=== PATIENT | male | born 1960 | race Caucasian/White ===

== ENCOUNTER 2017-02-17 14:19 | Emergency (ER) | payer BC, OTHER ==
[2017-02-17 15:01] VITALS: BP 138/87
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
== END 2017-02-17 15:43 | disposition home or self-care (01) ==
LOC: UCEAST 14:19
DX: R52 Pain, unspecified (principal); S22.42XA Multiple fractures of ribs, left side, initial encounter for closed fracture; S62.92XA Unspecified fracture of left hand, initial encounter for closed fracture; S42.102A Fracture of unspecified part of scapula, left shoulder, initial encounter for closed fracture; V29.40XA Motorcycle driver injured in collision with unspecified motor vehicles in traffic accident, initial encounter; F12.90 Cannabis use, unspecified, uncomplicated; Z87.891 Personal history of nicotine dependence
CPT/HCPCS: 99211; G0463

== ENCOUNTER 2018-11-13 15:26 | Emergency (ER) | payer BC ==
[2018-11-13 17:01] LABS: ABS Basophils 0.1 10^3/ul (0-0.2); ABS Eosinophils 0.1 10^3/ul (0-0.6); ABS Monocytes 1.1 10^3/ul (0-0.8); ABS Neutrophils 7.9 10^3/ul (1.5-7.7); ABS Nucleated RBC 0 10^3/ul; Eosinophil % 1.4 %; Hematocrit 44 % (42-52); Lymphocyte % 9.6 %; Mean Corpuscular HGB Conc 34 g/dl (31-36); Mean Corpuscular Hemoglobin 31 pg (27-31); Mean Corpuscular Volume 90 fL (80-94); Nucleated Red Blood Cells % 0; Platelet Count 269 10^3/ul (150-450); Red Blood Count 4.88 10^6/ul (4.00-5.40); Red Cell Distribution Width 13 % (10.5-15); White Blood Count 10.2 10^3/ul (3.5-10.8)
[2018-11-13 17:21] LABS: Albumin 4.5 g/dL (3.2-5.2); Albumin/Globulin Ratio 1.4 (1-3); BUN/Creatinine Ratio 17.1 (8-20); C Reactive Protein 95.54 mg/L (<8.01); Calcium 9.4 mg/dL (8.6-10.3); EGFR African American 82.3 (>60); Globulin 3.3 g/dL (2-4); Potassium 4.5 mmol/L (3.5-5.0); Total Bilirubin 0.8 mg/dL (0.2-1.0); Total Protein 7.8 g/dL (6.4-8.9)
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
[2018-11-13] MEDS ORDERED: Iohexol 350* (CONTRAST) 500 ML MDV IV ONE (17:35)
[2018-11-13] MEDS ORDERED: cefTRIAXone(*) 1 GM in NS 0.9% 50 ML* 50 ML IVPB ONE (17:40)
[2018-11-13] MEDS ORDERED: Ketorolac INJ* 30 MG/ML 1 ML VIAL IV PUSH ONE (17:40)
[2018-11-13] MEDS ORDERED: Azithromycin IV(*) 500 MG in NS 0.9% 250 ML* 250 ML IVPB ONE (17:40)
[2018-11-13 17:45] LABS: TSH (Thyroid Stimulating Horm) 3.33 mcIU/mL (0.34-5.60)
[2018-11-13 19:19] VITALS: BP 152/100
== END 2018-11-13 19:18 | disposition home or self-care (01) ==
LOC: ED 15:26
DX: J18.9 Pneumonia, unspecified organism (principal); R07.9 Chest pain, unspecified; R06.02 Shortness of breath; Z87.891 Personal history of nicotine dependence
CPT/HCPCS: 36415; 71046; 71275; 80053; 83605; 83880; 84443; 84484; 85025; 85379; 86140; 93005; 96365; 96375; 99283; J0456; J0696; J1885; Q9967

== ENCOUNTER 2019-06-24 21:00 | Emergency (ER) | payer BC ==
[2019-06-24] MEDS ORDERED: Lidocaine 1% MPF ** 5 ML VIAL INJ ONE (23:15)
[2019-06-24] MEDS ORDERED: ceFAZolin 1 GM ADVAN(*) 1 GM in NS 0.9% 50 ML* 50 ML IVPB ONE (23:19)
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
[2019-06-25 02:14] VITALS: BP 141/69
== END 2019-06-25 01:40 | disposition home or self-care (01) ==
LOC: ED 21:00
DX: S62.634B Displaced fracture of distal phalanx of right ring finger, initial encounter for open fracture (principal); W45.8XXA Other foreign body or object entering through skin, initial encounter; Y92.9 Unspecified place or not applicable; Z87.891 Personal history of nicotine dependence
CPT/HCPCS: 12001; 73140; 96365; 99282; J0690

== ENCOUNTER 2019-12-30 07:29 | Observation (INO) | payer BC ==
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
[2019-12-30] MEDS ORDERED: Diltiazem IV push/loading dose 5 MG/ML 5 ML vial (25 mg) IV SLOW PU ONE (07:50)
[2019-12-30] MEDS ORDERED: NS 0.9% 1000 ML** 1,000 ML IV ONE (07:53)
[2019-12-30 08:04] LABS: ABS Basophils 0.1 10^3/ul (0-0.2); ABS Eosinophils 0.2 10^3/ul (0-0.6); ABS Monocytes 0.5 10^3/ul (0-0.8); ABS Neutrophils 5.5 10^3/ul (1.5-7.7); Eosinophil % 2.2 %; Hematocrit 43 % (42-52); Hemoglobin 14.3 g/dL (14.0-18.0); Lymphocyte % 13.7 %; Mean Corpuscular HGB Conc 34 g/dL (31-36); Mean Corpuscular Hemoglobin 31 pg (27-31); Mean Corpuscular Volume 92 fL (80-94); Mean Platelet Volume 8.4 fL (7.4-10.4); Platelet Count 194 10^3/uL (150-450); Red Blood Count 4.63 10^6 /uL (4.18-5.48); Red Cell Distribution Width 14 % (10-15); White Blood Count 7.2 10^3/uL (3.5-10.8)
[2019-12-30 08:22] LABS: Albumin 4.2 g/dL (3.2-5.2); Albumin/Globulin Ratio 1.6 (1-3); BUN/Creatinine Ratio 16.5 (8-20); Calcium 9.5 mg/dL (8.6-10.3); EGFR African American 78.5 (>60); EGFR Non-African American 64.9 (>60); Globulin 2.7 g/dL (2-4); Magnesium 1.6 mg/dL (1.9-2.7); Potassium 4.7 mmol/L (3.5-5.0); Total Bilirubin 0.8 mg/dL (0.2-1.0); Total Protein 6.9 g/dL (6.4-8.9)
[2019-12-30 08:24] LABS: Troponin I 0.02 ng/mL (<0.03)
[2019-12-30] MEDS ORDERED: Magnesium Sulfate IV* 3 GM in NS 0.9% 100 ML* 100 ML IVPB ONE (08:38)
[2019-12-30] MEDS ORDERED: Diltiazem TAB* 30 MG PO ONE (08:38)
[2019-12-30 10:29] LABS: TSH (Thyroid Stimulating Horm) 6.7 mcIU/mL (0.34-5.60)
[2019-12-30] MEDS ORDERED: Acetaminophen TAB* 325 MG PO PRN (10:42)
[2019-12-30] MEDS ORDERED: Iodixanol* (CONTRAST) 320 MG/ML 100 ML SDV IV ONE ×2 (11:19→14:04)
[2019-12-30] MEDS ORDERED: Dextrose 50% Syringe 50 ML* 25 GM/50 ML SYRINGE IV PUSH PRN (11:19)
[2019-12-30] MEDS: Metoprolol Tartrate TAB* 25 MG PO SCH ×2 (13:19→20:28)
[2019-12-30] MEDS: Insulin LISPRO* 1 UNITS UNIT SUBCUT SCH ×3 (13:20→20:29)
--- NOTE | 2019-12-30 14:10 | ECHO ---
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 History: Palpitations. Atrial fibrillation. Risk factors: Former tobacco use. Conclusions Summary: - Left ventricle: Systolic function is severely reduced. The estimated ejection fraction is 25-30%. Wall motion is normal; there are no regional wall motion abnormalities but severe global hypokinesis - Right ventricle: Systolic function is moderately reduced. Systolic pressure is within the normal range. - Mitral valve: There is mild regurgitation. - Aortic valve: There is no evidence of stenosis. There is trace regurgitation. - Tricuspid valve: There is trace to mild regurgitation. - Pulmonary arteries: Systolic pressure is within the normal range. Pulmonary artery pressure may be underestimated - Study data: No prior study is available for comparison. Study data: Transthoracic echocardiogram. Procedure: Transthoracic echocardiography was performed. Image quality was fair. Complete 2D, spectral Doppler, and color flow Doppler. Location: Bedside. Patient status: Inpatient. Patient room number: 442-01. No prior study is available for comparison. Rhythm: Atrial fibrillation. Findings Left ventricle: The cavity size is mildly dilated. Wall thickness is mildly increased. Systolic function is severely reduced. The estimated ejection fraction is 25-30%. Wall motion is normal; there are no regional wall motion abnormalities but severe global hypokinesis Left ventricular diastolic function parameters are indeterminate. Right ventricle: The cavity size is mildly dilated. Systolic function is moderately reduced. Systolic pressure is within the normal range. Ventricular septum: There is septal flattening of the interventricular septum consistent with RV volume or pressure overload. Left atrium: The atrium is mildly dilated. Right atrium: The atrium is mildly dilated. Mitral valve: The leaflets are mildly thickened. There is no evidence of stenosis. There is mild regurgitation. Aortic valve: The valve is trileaflet. The leaflets are mildly thickened. There is no evidence of stenosis. There is trace regurgitation. Tricuspid valve: The leaflets are normal thickness. There is no evidence of stenosis. There is trace to mild regurgitation. Pulmonic valve: The leaflets are normal thickness. There is no evidence of stenosis. There is trace regurgitation. Aorta: Aortic root: The aortic root is moderately dilated. Ascending aorta: The ascending aorta is mildly dilated. Aortic arch: The aortic arch is appears normal. Pericardium: A prominent pericardial fat pad is present. There is no significant pericardial effusion. Pulmonary arteries: The main pulmonary artery is normal-sized. Systolic pressure is within the normal range. Pulmonary artery pressure may be underestimated Systemic veins: Inferior vena cava: The vessel is mildly dilated. There is (>= 50%) respiratory change in the IVC dimension. Measurements Left ventricle Value Ref Aortic valve Value Ref BEAU, LAX (H) 5.9 cm 4.2 - 5.8 Trey diam, ED 2.8 cm ----- ESD, LAX (H) 5.0 cm 2.5 - 4.0 Peak v, S 1.07 m/sec ----- FS, LAX (L) 15 % 25 - 43 VTI, S 29.7 cm ----- PW, ED, LAX 1.0 cm 0.6 - 1.0 Mean grad, S 6.0 mm Hg ----- FS (L) 15 % 25 - 43 Peak grad, S 5.0 mm Hg ----- Mid-wall FS 9 % PW, ED 1.0 cm 0.6 - 1.0 Mitral valve Value Ref E', lat trey, TDI (L) 5.9 cm/sec >=10.0 Peak E 1.06 m/sec --- -- E/e', lat trey, 18 Decel time 146 ms ----- TDI Peak grad, D 4.5 mm Hg ----- E', med trey, TDI (L) 5.7 cm/sec >=7.0 E/e', med trey, 19 Pulmonic valve Value Ref TDI Peak v, S 0.54 m/sec ----- E', avg, TDI 5.8 cm/sec Peak grad, S 1.0 mm Hg ----- E/e', avg, TDI (H) 18 <=14 Tricuspid valve Value Ref LVOT Value Ref TR peak v 2.04 m/sec <=2.8 Peak gabrielle, S 0.71 m/sec Peak RV-RA grad, S 17 mm Hg ----- Mean grad, S 1 mm Hg Aortic root Value Ref Ventricular septum Value Ref Root diam 4.3 cm <4.5 IVS, ED (H) 1.1 cm 0.6 - 1.0 Ascending aorta Value Ref Right ventricle Value Ref AAo AP diam, S 4.0 cm ----- BEAU, LAX 4.3 cm BEAU minor ax, A4C (H) 3.8 cm 1.9 - 3.5 Aortic arch Value Ref mid Arch diam 2.9 cm ----- Pressure, S 25 mm Hg Decending aorta Value Ref Left atrium Value Ref Tianna peak gabrielle 0.54 m/sec ----- AP dim, ES (H) 5.10 cm 3.00 - 4.00 Pulmonary artery Value Ref ML dim, A4C 4.6 cm Pressure, S 24.0 mm Hg ----- SI dim, A4C 5.9 cm Vol/bsa, ES, 1-p 33 ml/m^2 12 - 37 Inferior vena cava Value Ref A4C Diam 2.3 cm ----- Vol/bsa, ES, A/L (H) 39 ml/m^2 16 - 34 Right atrium Value Ref SI dim, ES (H) 5.4 cm 3.4 - 5.3 ML dim, ES, A4C (H) 4.9 cm 2.6 - 4.4 Estimated RAP 8 mm Hg Legend: (L) and (H) magan values outside specified reference range. Prepared and electronically signed by Eric Leiva MD 12/30/2019 14:09
[2019-12-30] MEDS ORDERED: Digoxin TAB* 0.125 MG PO SCH (17:00)
[2019-12-30] MEDS ORDERED: Furosemide IV* 10 MG/ML VIAL (40 MG) IV SLOW PU ONE (17:37)
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
[2019-12-30] MEDS ORDERED: Senna TAB 8.6 mg* TAB PO SCH (21:00)
[2019-12-30] MEDS ORDERED: Lisinopril TAB* 5 MG PO SCH (21:00)
[2019-12-30] MEDS ORDERED: glipiZIDE TAB* 5 MG PO SCH (21:00)
[2019-12-30] MEDS ORDERED: Apixaban* 5 MG TAB PO SCH (21:00)
[2019-12-31 01:42] VITALS: BP 145/117
[2019-12-31] MEDS ORDERED: Iodixanol* (CONTRAST) 320 MG/ML 100 ML SDV IV ONE (01:55)
[2019-12-31 01:57] LABS: ABS Basophils 0.1 10^3/ul (0-0.2); ABS Eosinophils 0.2 10^3/ul (0-0.6); ABS Lymphocytes 1.9 10^3/ul (1.0-4.8); ABS Monocytes 0.9 10^3/ul (0-0.8); ABS Neutrophils 4.5 10^3/ul (1.5-7.7); Eosinophil % 2.8 %; Hematocrit 45 % (42-52); Hemoglobin 15.2 g/dL (14.0-18.0); Lymphocyte % 25.2 %; Mean Corpuscular HGB Conc 34 g/dL (31-36); Mean Corpuscular Hemoglobin 31 pg (27-31); Mean Corpuscular Volume 92 fL (80-94); Mean Platelet Volume 8.5 fL (7.4-10.4); Nucleated Red Blood Cells % 0.1; Platelet Count 205 10^3/uL (150-450); Red Blood Count 4.94 10^6 /uL (4.18-5.48); Red Cell Distribution Width 14 % (10-15); White Blood Count 7.5 10^3/uL (3.5-10.8)
[2019-12-31 02:15] LABS: BUN/Creatinine Ratio 12.7 (8-20); Calcium 9.9 mg/dL (8.6-10.3); EGFR African American 76.2 (>60); HDL Cholesterol 49.2 mg/dL; Magnesium 1.9 mg/dL (1.9-2.7); Potassium 3.9 mmol/L (3.5-5.0)
--- NOTE | 2019-12-31 20:44 | DS ---
CC: Dr. Pratt * DISCHARGE/TRANSFER SUMMARY: DATE OF ADMISSION: 12/30/19 DATE OF DISCHARGE/TRANSFER: 12/31/19 PRIMARY CARE PROVIDER: Dr. Pratt. ATTENDING PHYSICIAN: Dr. Rodriguez.* (DICTATED BY TREY SIFUENTES NP) DISCHARGE DIAGNOSES: Include: 1. Cerebrovascular accident, large vessel occlusion, right M1 segment cutoff per Hilario Kumar stroke neurologist. 2. Atrial fibrillation with rapid ventricular response. 3. Cardiomyopathy, EF of 25% to 30%. 4. Diabetes. 5. Neuropathy. CURRENT MEDICATIONS: Include: 1. Tylenol 650 mg every 4 hours as needed. 2. Apixaban 5 mg b.i.d., last dose at 2100. 3. Aspirin 300 mg p.r. once. 4. Dextrose D50 12.5 g IV for sugars less than 60. 5. Digoxin 0.125 mg daily. 6. Glipizide 5 mg b.i.d. 7. Insulin sliding scale. 8. Lisinopril 2.5 mg daily. 9. Metoprolol 25 mg b.i.d. 10. Senna 1 tab p.o. b.i.d. HOSPITAL COURSE: I will refer you to the H and P dictated yesterday on for further details. In short, Mr. Ward is a 59-year-old male patient who presented initially to our ER with complaints of shortness of breath that was going on for approximately 2 weeks as well as watery postnasal drip. He tried Gas-X and antacids with no effect. He states that for the last 3 days it did help. The patient reports a history of blood clot through his left lower extremity 20 plus years ago. He was on Coumadin for a few months. Also states that he had a procedure done in a different facility where superficial clots were removed from his left lower extremity. He had been on aspirin 325. He stopped taking Coumadin a couple of decades ago. He states that he does not follow up routinely with a PCP. He takes glipizide and metformin for diabetes. He presented to the ER, was noted to be in AFib with RVR and because of this, he was asked to evaluate for admission. The patient was admitted. He was started on apixaban. His transthoracic echocardiogram showed an ejection fraction of 25% to 30%. There was concern that he was in CHF and it was felt that CHF was related to the AFib. A pulmonary embolism had been ruled out via CTA. There was hilar or mediastinal lymphadenopathy with enlarged paraesophageal lymph nodes as well as small bilateral pleural effusions. CT of the abdomen and pelvis showed no appreciable cause for lymphadenopathy. The patient was admitted for the AFib with RVR. He was started again on diltiazem, anticoagulation was started with Eliquis 5 mg p.o. b.i.d., and he was controlled with metoprolol 25 mg twice a day. It was noted that the patient did have development of a hilar or mediastinal lymphadenopathy with enlarged paraesophageal lymph nodes concerning for metastatic neoplasm. CT of the abdomen and pelvis did not show appreciable cause for lymphadenopathy. He was set up for an IR-guided biopsy. For diabetes, he was started on lispro sliding scale. It was noted that he was on Coumadin for a history of a blood clot in the past. The patient was admitted. He was doing well. He at 11:30 had gotten up to use the bathroom with his aide. He had been talking clearly. At approximately 1:18, I was called by nursing staff as there was concern. I responded by 1:20 upstairs and noted that the patient had dense hemiparesis to the left upper extremity, left lower extremity, and his speech was again dysarthric. It was also noted that he had significant weakness to his upper and lower extremities. In addition to this, it was noted that he had profound neglect to left side and decreased sensation to the left lower and left upper extremity and a significant facial droop. A hannah ibarra was called at 1:25. The patient was brought down to CT. His initial NIH Stroke Scale was 18. The patient was again brought to CT emergently and the [facility] was contacted. A CTA was obtained immediately given the concern that there could be a large vessel occlusion. The images were pushed to [facility]. Telestroke was initiated. They evaluated the patient. He had some improvement on second evaluation. He was able to lift his left upper and left lower extremity off the bed somewhat, but again there was significant drift noted. He had a partial gaze deviation at this point and possibly hemianopsia on the left side as well. Telestroke was performed with Dr. Hahn. He looked at the images personally and felt that there was an M1 segment cutoff to the right MCA, and at that point , the LVO team was activated at [facility] and helicopter services were called to initiate transfer. Recommendations from Dr. Hahn from [place] were to keep the head of bed flat; aspirin 300 mg, I gave it to him rectally. In addition to this, they recommended a liter of bolus, I gave him 500 because of his low ejection fraction. The patient's blood pressure when he initially presented to the ICU was low and the systolic was around 100. He responded to fluids and his symptoms subsequently got better with higher blood pressure. Dr. Hahn accepted the patient for LVO based on his read of the CTA. I do note that our [facility] did not call an LVO; however, Dr. Hahn again noted the LVO and recommended transfer, so I am following his recommendations. The patient had an EKG at that time and he did have some T-wave inversions in V5 along with lead I and lead II. Previously, those T-waves were flat and no other changes were noted. CT of the brain did not show bleed. At this point, again the patient will be transferred to [facility] for possible LVO extraction. I updated our neurology team of the plan of care. We have forwarded all images up there. My attending physician was Dr. Rodriguez. He was in agreement with this. DIAGNOSTIC STUDIES: Again, imaging done in the hospital today includes brain CT , which showed study degraded by motion artifact. No acute intracranial hemorrhage. No intracranial mass. No obstructive hydrocephalus. ASPECT score 10. He had a head CTA, impression: No stenosis of the cervical, carotid, or vertebral arteries. Impression of CTA head: No acute findings. Abdominal/pelvis CT was obtained, which showed again noted is paraesophageal lymphadenopathy, small bilateral effusions. There is inflammatory change along the inferior aspect of the right lateral conal fascia. Etiology is unclear. Differential includes inflammation secondary to upper urinary tract infection, atherosclerosis, fatty infiltration of the liver. Chest/thorax CTA shows no PE. Interval development of hilar and mediastinal lymphadenopathy with enlarged paraesophageal lymph nodes concerning for metastatic neoplasm. Small bilateral pleural effusions. Transthoracic echocardiogram showed EF of 25% to 30%. Right systolic function is moderately reduced. Chest x-ray showed patchy bibasilar consolidation, recommend followup until resolution. Again, EKG showed atrial fibrillation initially with a rate of 142 with T-wave flattening in V4, V5, V6, lead I and II. He did have T-wave inversions on his recent EKG that were subtle at 1:20 in V5, lead I, II, and also aVF. DISPOSITION : Again, the patient will be transferred to [facility] for possible LVO intervention. TREY SIFUENTES, STATEMENT REQUEST CLERK [id number]/CPS #: [id number] [facility]HELLE HOSPITALMelinda
== END 2019-12-31 03:00 | disposition short-term general hospital (02) ==
LOC: ED 07:29 → MEDTELE 10:42 → ICU 12-31 02:08
PROVIDERS: ADMIT Internal Medicine; ATTEND Family Medicine
DX: I63.9 Cerebral infarction, unspecified (principal); I48.20 Chronic atrial fibrillation, unspecified; I42.9 Cardiomyopathy, unspecified; G62.9 Polyneuropathy, unspecified; R06.02 Shortness of breath; I48.91 Unspecified atrial fibrillation; R51 Headache; R00.2 Palpitations; E11.9 Type 2 diabetes mellitus without complications; I10 Essential (primary) hypertension; Z86.718 Personal history of other venous thrombosis and embolism; Z79.899 Other long term (current) drug therapy; Z79.4 Long term (current) use of insulin; Z79.82 Long term (current) use of aspirin; Z79.01 Long term (current) use of anticoagulants; Z87.891 Personal history of nicotine dependence
CPT/HCPCS: 36415; 70450; 70496; 70498; 71046; 71275; 74177; 80048; 80053; 80061; 82803; 83036; 83735; 83880; 84443; 84484; 85025; 85379; 93005; 93306; 96361; 96365; 96375; 99284; A9270-GY; G0378; J1940; J3475; Q9967

== ENCOUNTER 2020-01-14 15:28 | Inpatient (IN) | payer BC ==
[2020-01-14] MEDS ORDERED: NS 0.9% 1000 ML** 1,000 ML IV ONE (15:39)
--- OUTSIDE RECORDS SUMMARY | 2020-01-14 15:48 | XMS REPORT | Continuity of Care Document ---
:1960 External Reference #:[id number] Author Name Eric Leiva M.D. (transmitted by agent of provider Elisa De Santiago) Address [address] [place] [address] Problems Description No Information Available Social History Type Date Description Comments Sex Unknown Allergies, Adverse Reactions, Alerts Description No Information Available Medications Description No Information Available Immunizations Description No Information Available Vital Signs Date Vital Result Comment 08/11/2011 11:38am Height 73.50 inches 6'1.50" Weight 275.00 lb Heart Rate 75 /min BP Systolic 124 mmHg BP Diastolic 87 mmHg BMI (Body Mass Index) 35.8 kg/m2 Results Description No Information Available Procedures Date Code Description Status 12/30/2019 95922 ECHO Transthorasic Realtime 2D W Doppler & Color Flow Hosp Completed Medical Devices Description No Information Available Encounters Type Date Location Provider Dx Diagnosis Office Visit 12/31/2019 [facility] Ricardo I48.91 Unspecified atrial 11:48a Asskamlesh wasserman, N.P. fibrillation Hospitalists I63.9 Cerebral infarction, unspecified R59.0 Localized enlarged lymph nodes [facility] Unspecified atrial 11:47a Asskamlesh wasserman, USABILITY STRATEGIST fibrillation Hospitalists R06.02 Shortness of breath Assessments Date Code Description Provider 12/31/2019 I48.91 Unspecified atrial fibrillation Ricardo Myers, N.P. 12/31/2019 I63.9 Cerebral infarction, unspecified Ricardo Myers, N.P. 12/31/2019 R59.0 Localized enlarged lymph nodes Ricardo Myers, N.P. 12/30/2019 R06.02 Shortness of breath Eric Leiva M.D. 12/30/2019 I48.91 Unspecified atrial fibrillation JOSS Woo 12/30/2019 R06.02 Shortness of breath JOSS Woo Plan of Treatment No Information Available Functional Status Description No Information Available Mental Status Description No Information Available Referrals Description No Information Available
--- OUTSIDE RECORDS SUMMARY | 2020-01-14 15:49 | XMS REPORT | Continuity of Care Document ---
:1960 External Reference #:[id number] Author Name Ricardo Myers N.P. (transmitted by agent of provider Rupa Young) Address [address] [place] [address] Problems Description No Information Available Social History [...] kg/m2 Results Description No Information Available Procedures Description No Information Available Medical Devices Description No Information Available Encounters Type Date Location Provider Dx Diagnosis Office Visit 12/31/2019 [facility] Ricardo I48.91 Unspecified atrial 11:48a kamlesh Shaw N.P. fibrillation Hospitalists I63.9 Cerebral infarction, unspecified R59.0 Localized enlarged lymph nodes [facility] Unspecified atrial 11:47a kamlesh Shaw FNP fibrillation Hospitalists R06.02 Shortness of breath Assessments Date Code Description Provider 12/31/2019 I48.91 Unspecified atrial fibrillation Ricardo Myers N.PGarrett 12/31/2019 I63.9 Cerebral infarction, unspecified Ricardo Myers N.PGarrett 12/31/2019 R59.0 Localized enlarged lymph nodes Ricardo Myers N.P. 12/30/2019 I48.91 Unspecified atrial fibrillation JOSS Woo 12/30/2019 R06.02 Shortness of breath JOSS Woo Plan of Treatment No Information Available Functional Status Description No Information Available Mental Status Description No Information Available Referrals Description No Information Available
--- OUTSIDE RECORDS SUMMARY | 2020-01-14 15:49 | XMS REPORT | Continuity of Care Document ---
:1960 External Reference #:[id number] Author Name JOSS Woo (transmitted by agent of provider Rupa Young) Address [address] [place] [address] Problems Description No Information Available Social History [...] Location Provider Dx Diagnosis Office Visit 12/31/2019 [facility] [place] Ricardo I48.91 Unspecified atrial 11:48a kamlesh Shaw, N.P. fibrillation Hospitalists I63.9 Cerebral infarction, unspecified R59.0 Localized enlarged lymph nodes [facility] atrial 11:47a kamlesh Shaw FNP fibrillation Hospitalists R06.02 Shortness of breath Assessments Date Code Description Provider 12/31/2019 I48.91 Unspecified atrial fibrillation Ricardo Myers, N.P. 12/31/2019 I63.9 Cerebral infarction, unspecified Ricardo Myers N.P. 12/31/2019 R59.0 Localized enlarged lymph nodes Ricardo Myers N.P. 12/30/2019 I48.91 Unspecified atrial fibrillation JOSS Woo 12/30/2019 R06.02 Shortness of breath JOSS Woo Plan of Treatment No Information Available Functional Status Description No Information Available Mental Status Description No Information Available Referrals Description No Information Available
[2020-01-14 15:51] LABS: Hematocrit 51 % (42-52); Hemoglobin 16.5 g/dL (14.0-18.0); Mean Corpuscular HGB Conc 33 g/dL (31-36); Mean Corpuscular Hemoglobin 31 pg (27-31); Mean Corpuscular Volume 94 fL (80-94); Mean Platelet Volume 9.1 fL (7.4-10.4); Platelet Count 139 10^3/uL (150-450); Red Blood Count 5.38 10^6 /uL (4.18-5.48); Red Cell Distribution Width 14 % (10-15)
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
[2020-01-14 16:05] LABS: ALT 52 U/L (7-52); AST 61 U/L (13-39); Albumin 4.1 g/dL (3.2-5.2); Albumin/Globulin Ratio 1.2 (1-3); Alkaline Phosphatase 74 U/L (34-104); Anion Gap 22 mmol/L (2-11); BUN/Creatinine Ratio 13.8 (8-20); Blood Urea Nitrogen 27 mg/dL (6-24); CO2 Carbon Dioxide 17 mmol/L (22-32); Calcium 9.9 mg/dL (8.6-10.3); Chloride 99 mmol/L (101-111); EGFR African American 42.7 (>60); EGFR Non-African American 35.3 (>60); Globulin 3.3 g/dL (2-4); Glucose 361 mg/dL (70-100); Potassium 3.6 mmol/L (3.5-5.0); Sodium 138 mmol/L (135-145); Total Protein 7.4 g/dL (6.4-8.9)
[2020-01-14 16:07] LABS: Troponin I 0.06 ng/mL (<0.03)
[2020-01-14 16:10] LABS: Activated Partial Thrombo Time 60.4 seconds (26.0-38.0); INR 1.21 (0.82-1.09)
[2020-01-14 16:17] LABS: Magnesium 2.3 mg/dL (1.9-2.7)
[2020-01-14 16:27] LABS: ABS Basophils 0.1 10^3/ul (0-0.2); ABS Eosinophils 0.2 10^3/ul (0-0.6); ABS Lymphocytes 3.1 10^3/ul (1.0-4.8); ABS Monocytes 1.1 10^3/ul (0-0.8); ABS Neutrophils 10.5 10^3/ul (1.5-7.7); Eosinophil % 1.6 %; Lymphocyte % 20.5 %
[2020-01-14 16:46] LABS: Fibrinogen 200.3 mg/dL (110.8-404.3)
[2020-01-14] MEDS ORDERED: fentaNYL* 50 MCG/ML 2 ML VIAL (100 MCG VIAL) IV PRN (17:00)
[2020-01-14] MEDS ORDERED: Ondansetron INJ* 2 MG/ML VIAL IV PRN (17:00)
[2020-01-14 17:03] LABS: Urine Appearance Cloudy; Urine Bilirubin Negative (Negative); Urine Blood 2+ (Negative); Urine Color Amber; Urine Glucose 3+(>=500 mg/dL) (Negative); Urine Ketones Negative (Negative); Urine Nitrite Negative (Negative); Urine Protein 2+(100 mg/dL) (Negative); Urine Specific Gravity 1.022 (1.010-1.030); Urine Urobilinogen Negative (Negative)
[2020-01-14 17:10] LABS: Urine Bacteria Absent (Absent); Urine Red Blood Cell 3+(>10/hpf) (Absent); Urine Squamous Epithelial Cell Present (Absent); Urine White Blood Cell Trace(0-5/hpf) (Absent)
[2020-01-14] MEDS ORDERED: Midazolam* 1 MG/ML 5 ML VIAL (5 MG) ONE (17:18)
[2020-01-14] MEDS ORDERED: Midazolam* 1 MG/ML 5 ML VIAL (5 MG) IV SLOW PU ONE (17:19)
[2020-01-14] MEDS ORDERED: Propofol* 100 ML ONE (17:25)
[2020-01-14] MEDS ORDERED: Norepinephrine 16MCG/ML IVPRE* 4,000 MCG/250 ML BAG IV ONE (17:52)
[2020-01-14] MEDS: Propofol* 100 ML IV SCH (17:59)
[2020-01-14] MEDS ORDERED: Amiodarone 150 MG IVPREMIX* 150 MG/100 ML BAG IV ONE (18:00)
[2020-01-14] MEDS ORDERED: Norepinephrine 16MCG/ML IVPRE* 4,000 MCG/250 ML BAG IV SCH (18:00)
[2020-01-14] MEDS ORDERED: Amiodarone 360 MG IVPREMIX* 360 MG/200 ML BAG IV ONE (18:30)
[2020-01-14 18:56] LABS: Troponin I 0.45 ng/mL (<0.03)
[2020-01-14] MEDS ORDERED: Dextrose 50% Syringe 50 ML* 25 GM/50 ML SYRINGE IV PUSH PRN (19:07)
--- NOTE | 2020-01-14 19:12 | HP ---
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 All information is obtained from chart and ED d/t unresponsiveness. He was admitted here at [facility] on 12/29 after 2 weeks of SOB and palpitations. Was found to be in afib with RVR. During his brief stay, he was a code garay, experiencing left sided plegia, right gaze deviation and dysarthria. He was transferred to stroke for a right MCA occlusion. Apparently there was no endovascular intervention d/t stroke already forming. From there, he went to [facility] for rehab presumptively. Just prior to arrival, he was in the bathroom, said he didnt feel well, was incontinent of stool and then went unresponsive. There was no pulse, found to have PEA arrest. Received 1 epi, and 10mins of CPR with ROSC. Of note, his most recent echo showed cardiomyopathy with EF 25-30%. He was intubated in the field. CTH showed significant right MCA subacute infarct. ROS: ROS unable to be obtained secondary to unresponsiveness PMHx: DM, DVT, afib PSHx: unknown Family History: KEYANA Social History: KEYANA Allergies: NKDA Home Medications: glipiZIDE TAB* [Glucotrol TAB*] 5 mg PO BID 11/13/18 [History Confirmed 01/14/20 ] metFORMIN* [Glucophage 1000 MG TAB *] 1,000 mg PO BID 11/13/18 [History Confirmed 01/14/20] Aspirin EC TAB* [Ecotrin EC TAB*] 325 mg PO DAILY 12/30/19 [History Confirmed ] Simethicone [Gas-X Extra Strength] 125 mg PO DAILY PRN 12/30/19 [History Confirmed 01/14/20] Acetaminophen TAB* [Tylenol TAB*] 650 mg PO Q6H PRN 01/14/20 [History Confirmed 01/14/20] Atorvastatin* [Lipitor*] 80 mg PO BEDTIME 01/14/20 [History Confirmed 01/14/20] FLUoxetine CAP* [PROzac CAP*] 20 mg PO QAM 01/14/20 [History Confirmed 01/14/20] Metoprolol Tartrate TAB* [Lopressor TAB*] 25 mg PO BID 01/14/20 [History Confirmed 01/14/20] Metoprolol Tartrate TAB* [Lopressor TAB*] 100 mg PO BID 01/14/20 [History Confirmed 01/14/20] Multivitamins/Minerals TAB* [Theragran/minerals TAB*] 1 tab PO QAM 01/14/20 [ History Confirmed 01/14/20] dilTIAZem HCl [Diltiazem 12Hr ER] 60 mg PO Q12HR 01/14/20 [History Confirmed ] Tele: irregular Vitals: Vital Signs 01/14/20 01/14/20 01/14/20 15:32 15:33 15:38 Temperature Pulse Rate 93 68 107 Respiratory Rate Blood Pressure 123/99 121/82 (mmHg) O2 Sat by Pulse 100 99 100 Oximetry 01/14/20 01/14/20 01/14/20 15:49 15:54 15:57 Temperature Pulse Rate 62 72 66 Respiratory Rate Blood Pressure 108/76 112/81 134/87 (mmHg) O2 Sat by Pulse 99 99 100 Oximetry 01/14/20 01/14/20 01/14/20 16:00 16:08 16:10 Temperature 95.5 F Pulse Rate 52 125 Respiratory 18 Rate Blood Pressure 134/89 127/89 (mmHg) O2 Sat by Pulse 99 99 Oximetry 01/14/20 01/14/20 01/14/20 16:14 16:18 16:22 Temperature Pulse Rate 62 60 64 Respiratory Rate Blood Pressure 129/87 116/86 136/85 (mmHg) O2 Sat by Pulse 99 99 99 Oximetry 01/14/20 01/14/20 01/14/20 16:55 17:00 17:01 Temperature 99.0 F 99.0 F 99.0 F Pulse Rate 70 71 73 Respiratory Rate Blood Pressure 128/93 130/78 (mmHg) O2 Sat by Pulse 98 92 95 Oximetry 01/14/20 01/14/20 01/14/20 17:05 17:11 17:15 Temperature 99.0 F 99.0 F 99.0 F Pulse Rate 120 143 148 Respiratory Rate Blood Pressure 173/129 179/106 151/115 (mmHg) O2 Sat by Pulse 95 96 97 Oximetry 01/14/20 01/14/20 01/14/20 17:20 17:24 17:29 Temperature 99.0 F 99.0 F 99.0 F Pulse Rate 133 115 81 Respiratory Rate Blood Pressure 137/113 129/109 129/98 (mmHg) O2 Sat by Pulse 96 97 98 Oximetry 01/14/20 01/14/20 01/14/20 17:42 17:45 17:55 Temperature 99.1 F 99.1 F 99.1 F Pulse Rate 97 131 151 Respiratory 24 29 Rate Blood Pressure 112/93 112/93 149/99 (mmHg) O2 Sat by Pulse 98 98 96 Oximetry Intake and Output Last 24 Hours 01/12/20 01/13/20 01/14/20 01/15/20 06:59 06:59 06:59 06:59 Intake Total 1000 Balance 1000 Weight 247 lb 3.2 oz Intake: IV Fluids 1000 Vent: vented Infusions: IVF bolus infusing Current Medications: Fentanyl Citrate (Fentanyl*) 25 mcg IV Q1H PRN PRN Reason: PAIN - SEVERE Propofol (Diprivan*) 100 mls @ 16.819 mls/hr IV .PER PROTOCOL CELINA; Protocol Last Admin: 01/14/20 17:59 Dose: 16.819 mls/hr Amiodarone HCl (Nexterone 360 Mg/200 Ml Ivpremix*) 360 mg in 200 mls @ 33.333 mls/hr IV ONCE ONE Stop: 01/15/20 00:29 Last Admin: 01/14/20 18:20 Dose: 33.333 mls/hr Amiodarone HCl (Nexterone 360 Mg/200 Ml Ivpremix*) 360 mg in 200 mls @ 16.667 mls/hr IV .SEE PROTOCOL CELINA Norepinephrine Bitartrate (Levophed 16 Mcg/Ml Premix*) 4,000 mcg in 250 mls @ 18.75 mls/hr IV .PER PROTOCOL CELINA; Protocol Ondansetron HCl (Zofran Inj*) 4 mg IV Q6H PRN PRN Reason: NAUSEA/VOMITING Physical Exam: Constitutional: unrepsonsive, no distress, no diaphoresis Head: normocephalic, atraumatic Eyes: no pallor, no icterus ENT: moist mucous membranes Neck: soft, supple CVS: normal rate, regular, no murmur Chest/Resp: bilateral air entry, no rhales, no wheeze, no rhonchi, no acc muscle use Abdomen/GI: soft, nontender, nondistended, BS+ Ext/Msk: warm, pulses+, no edema. LLE is purple, unknown baseline. Does have history of both superficial and deep venous thromboses in that extremity. Skin: intact, warm Neuro: unresponsive, does not open eyes, does not follow commands, no movement any extremity. PERRL 5mm. GCS 3T. Labs: Laboratory Results - last 24 hr 01/14/20 01/14/20 01/14/20 15:38 15:38 15:38 WBC 15.0 H RBC 5.38 Hgb 16.5 Hct 51 MCV 94 MCH 31 MCHC 33 RDW 14 Plt Count 139 L MPV 9.1 Neut % (Auto) 69.7 Lymph % (Auto) 20.5 Desha % (Auto) 7.6 Eos % (Auto) 1.6 Baso % (Auto) 0.6 Absolute Neuts (auto) 10.5 H Absolute Lymphs (auto) 3.1 Absolute Monos (auto) 1.1 H Absolute Eos (auto) 0.2 Absolute Basos (auto) 0.1 Absolute Nucleated RBC 0.0 Nucleated RBC % 0.0 INR (Anticoag Therapy) APTT Fibrinogen D-Dimer, Quantitative Patient Temperature ABG pH ABG pH (Temp Correct) ABG pCO2 ABG pCO2 (Temp Corrct ABG pO2 ABG pO2 (Temp Correct ABG HCO3 ABG O2 Saturation ABG Base Excess Respiration Rate O2 Delivery Device Ventilator Type Vent Mode FiO2 Inspiratory Time PEEP Pressure Support Pressure Control EPAP IPAP BiPAP Sodium 138 Potassium 3.6 Chloride 99 L Carbon Dioxide 17 L Anion Gap 22 H BUN 27 H Creatinine 1.95 H Est GFR ( Amer) 42.7 Est GFR (Non-Af Amer) 35.3 BUN/Creatinine Ratio 13.8 Glucose 361 H Lactic Acid 9.6 H* Calcium 9.9 Magnesium 2.3 Total Bilirubin 0.90 AST 61 H ALT 52 Alkaline Phosphatase 74 Troponin I 0.06 H* B-Natriuretic Peptide Total Protein 7.4 Albumin 4.1 Globulin 3.3 Albumin/Globulin Ratio 1.2 Urine Color Urine Appearance Urine pH Ur Specific [place] Urine Protein Urine Ketones Urine Blood Urine Nitrate Urine Bilirubin Urine Urobilinogen Ur Leukocyte Esterase Urine WBC (Auto) Urine RBC (Auto) Ur Squamous Epith Cells Urine Bacteria Hyaline Casts Urine Sperm Urine Glucose 01/14/20 01/14/20 01/14/20 15:38 15:38 15:55 WBC RBC Hgb Hct MCV MCH MCHC RDW Plt Count MPV Neut % (Auto) Lymph % (Auto) Desha % (Auto) Eos % (Auto) Baso % (Auto) Absolute Neuts (auto) Absolute Lymphs (auto) Absolute Monos (auto) Absolute Eos (auto) Absolute Basos (auto) Absolute Nucleated RBC Nucleated RBC % INR (Anticoag Therapy) 1.21 H APTT 60.4 H Fibrinogen 200.3 D-Dimer, Quantitative > 1050 H Patient Temperature Cancelled ABG pH Cancelled ABG pH (Temp Correct) Cancelled ABG pCO2 Cancelled ABG pCO2 (Temp Corrct Cancelled ABG pO2 Cancelled ABG pO2 (Temp Correct Cancelled ABG HCO3 Cancelled ABG O2 Saturation Cancelled ABG Base Excess Cancelled Respiration Rate Cancelled O2 Delivery Device Cancelled Ventilator Type Cancelled Vent Mode Cancelled FiO2 Cancelled Inspiratory Time Cancelled PEEP Cancelled Pressure Support Cancelled Pressure Control Cancelled EPAP Cancelled IPAP Cancelled BiPAP Cancelled Sodium Potassium Chloride Carbon Dioxide Anion Gap BUN Creatinine Est GFR ( Amer) Est GFR (Non-Af Amer) BUN/Creatinine Ratio Glucose Lactic Acid Calcium Magnesium Total Bilirubin AST ALT Alkaline Phosphatase Troponin I B-Natriuretic Peptide 720 H Total Protein Albumin Globulin Albumin/Globulin Ratio Urine Color Urine Appearance Urine pH Ur Specific [place] Urine Protein Urine Ketones Urine Blood Urine Nitrate Urine Bilirubin Urine Urobilinogen Ur Leukocyte Esterase Urine WBC (Auto) Urine RBC (Auto) Ur Squamous Epith Cells Urine Bacteria Hyaline Casts Urine Sperm Urine Glucose 01/14/20 01/14/20 01/14/20 15:59 16:00 18:23 WBC RBC Hgb Hct MCV MCH MCHC RDW Plt Count MPV Neut % (Auto) Lymph % (Auto) Desha % (Auto) Eos % (Auto) Baso % (Auto) Absolute Neuts (auto) Absolute Lymphs (auto) Absolute Monos (auto) Absolute Eos (auto) Absolute Basos (auto) Absolute Nucleated RBC Nucleated RBC % INR (Anticoag Therapy) APTT Fibrinogen D-Dimer, Quantitative Patient Temperature ABG pH 7.06 L* ABG pH (Temp Correct) ABG pCO2 63 H ABG pCO2 (Temp Corrct ABG pO2 152 H ABG pO2 (Temp Correct ABG HCO3 14.7 L ABG O2 Saturation TNP ABG Base Excess -13.1 L Respiration Rate O2 Delivery Device Ventilator Type Vent Mode FiO2 Inspiratory Time PEEP Pressure Support Pressure Control EPAP IPAP BiPAP Sodium Potassium Chloride Carbon Dioxide Anion Gap BUN Creatinine Est GFR ( Amer) Est GFR (Non-Af Amer) BUN/Creatinine Ratio Glucose Lactic Acid Calcium Magnesium Total Bilirubin AST ALT Alkaline Phosphatase Troponin I 0.45 H* B-Natriuretic Peptide Total Protein Albumin Globulin Albumin/Globulin Ratio Urine Color Viry Urine Appearance Cloudy Urine pH 5.0 Ur Specific [place] 1.022 Urine Protein 2+(100 mg/dl) A Urine Ketones Negative Urine Blood 2+ A Urine Nitrate Negative Urine Bilirubin Negative Urine Urobilinogen Negative Ur Leukocyte Esterase Negative Urine WBC (Auto) Trace(0-5/hpf) Urine RBC (Auto) 3+(>10/hpf) A Ur Squamous Epith Cells Present A Urine Bacteria Absent Hyaline Casts Present A Urine Sperm Present A Urine Glucose 3+(>=500 mg/dl) A Imaging: CTH 01/13: Subacute right MCA stroke, right extrernal watershed territory infarcts. Mild local mass effect, effacement of right lateral ventricle. 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 All information is obtained from chart and ED d/t unresponsiveness. He was admitted here at [facility] on 12/29 after 2 weeks of SOB and palpitations. Was found to be in afib with RVR. During his brief stay, he was a code garay, experiencing left sided plegia, right gaze deviation and dysarthria. He was transferred to stroke for a right MCA occlusion. Apparently there was no endovascular intervention d/t stroke already forming. From there, he went to [facility] for rehab presumptively. Just prior to arrival, he was in the bathroom, said he didnt feel well, was incontinent of stool and then went unresponsive. There was no pulse, found to have PEA arrest. Received 1 epi, and 10mins of CPR with ROSC. Of note, his most recent echo showed cardiomyopathy with EF 25-30%. He was intubated in the field. CTH showed significant right MCA subacute infarct. - Right MCA stroke - PEA cardiac arrest - DM - Aflutter/afib with RVR Plan: Neuro- - GCS 3T. Will initiate normothermia protocol. Demerol for shivering - CTH showed right MCA subacute infarct from previous hospitalization -Delirium prec; avoid BDZ CVS- -Titrate Pressors to Maintain MAP>65 - Aflutter: bolused and started on amio drip Resp- - Intubated during code in field -Wean Fio2 to keep sat>92% -Bronchodilators PRN, Aspiration prec, Pulmonary Toilet -VAP bundle ID- - Goal temp normothermia, will set for 36celsius. Panculture and Tylenol for fevers GI- -Nutrition: NPO -GI prophylaxis pepcid Renal- -strict I/O, replete to keep K>4, Mg>2 -[place] as indicated Heme- - Contraindicated at this time Endo- Maintain BG<200, insulin protocol as needed Musculsk- pressure ulcer prophylaxis. Bedrest. Wounds- none Nutrition- NPO DVT prophylaxis: contraindicated GI prophylaxis: pepcid [place] Catheter: continue Disposition: Admit to ICU; Expected LOS>2 midnights; Patient requires Critical Care/ICU for PEA arrest, respiratory failure, normothermia, hypotension Patient Clinical Status: critical Code Status: full Total Critical Care time is 60 minutes
[2020-01-14] MEDS: Chlorhexidine MOUTHWASH 0.12%* 15 ML UDC TOPICAL SCH (21:01)
[2020-01-14] MEDS: Famotidine IV* 10 MG/ML 2 ML (20 mg) IV SLOW PU SCH (21:01)
[2020-01-15] MEDS: Amiodarone 360 MG IVPREMIX* 360 MG/200 ML BAG IV SCH ×2 (00:31→12:39)
[2020-01-15] MEDS: Chlorhexidine MOUTHWASH 0.12%* 15 ML UDC TOPICAL SCH ×6 (00:45→20:25)
[2020-01-15 01:29] LABS: Glucose Confirmatory 388 mg/dL (70-100)
[2020-01-15 01:35] LABS: Troponin I 0.87 ng/mL (<0.03)
[2020-01-15] MEDS: Lactated Ringers 1000 ML Bag* 1,000 ML IV SCH ×3 (02:20→18:04)
[2020-01-15] MEDS: Insulin LISPRO* 1 UNITS UNIT SUBCUT SCH ×6 (02:27→20:25)
[2020-01-15] MEDS: Propofol* 100 ML IV SCH ×3 (03:28→18:04)
[2020-01-15 05:28] LABS: ABS Lymphocytes 0.5 10^3/ul (1.0-4.8); ABS Monocytes 1.4 10^3/ul (0-0.8); ABS Neutrophils 14.4 10^3/ul (1.5-7.7); Hematocrit 46 % (42-52); Hemoglobin 15.3 g/dL (14.0-18.0); Lymphocyte % 3.3 %; Mean Corpuscular HGB Conc 34 g/dL (31-36); Mean Corpuscular Hemoglobin 31 pg (27-31); Mean Corpuscular Volume 91 fL (80-94); Mean Platelet Volume 8.7 fL (7.4-10.4); Platelet Count 105 10^3/uL (150-450); Red Blood Count 4.99 10^6 /uL (4.18-5.48); Red Cell Distribution Width 13 % (10-15); White Blood Count 16.4 10^3/uL (3.5-10.8)
[2020-01-15 05:38] LABS: CO2 Carbon Dioxide 17 mmol/L (22-32); Calcium 9.1 mg/dL (8.6-10.3); Chloride 103 mmol/L (101-111); Sodium 135 mmol/L (135-145)
[2020-01-15 05:39] LABS: Anion Gap 15 mmol/L (2-11); Potassium 5.8 mmol/L (3.5-5.0)
[2020-01-15 05:43] LABS: BUN/Creatinine Ratio 20.5 (8-20); Blood Urea Nitrogen 42 mg/dL (6-24); EGFR African American 40.3 (>60); EGFR Non-African American 33.3 (>60); Glucose 383 mg/dL (70-100); Phosphorus 6.5 mg/dL (2.5-5.0)
[2020-01-15] MEDS ORDERED: Insulin LISPRO* 1 UNITS UNIT SUBCUT SCH (07:15)
[2020-01-15 09:16] LABS: Magnesium 1.9 mg/dL (1.9-2.7)
[2020-01-15 09:21] LABS: Cholesterol 116 mg/dL; Creatine Kinase 238 U/L (10-223); HDL Cholesterol 45.1 mg/dL; LDL Cholesterol 43 mg/dL; Triglycerides 142 mg/dL
[2020-01-15] MEDS: Famotidine IV* 10 MG/ML 2 ML (20 mg) IV SLOW PU SCH ×2 (10:18→20:25)
--- NOTE | 2020-01-15 11:39 | PN ---
Progress Note - Progress Note Date of Service: 01/15/20 Note: Progress Note -- Critical Care 24 hour events/significant events: - Reached goal temp last night - remains comfortable on current sedation - According to nursing history, patient may have had an aspiration episode while eating lunch yesterday ROS: ROS unable to be obtained secondary to intubated/sedated Tele: NSR Vitals: Vital Signs 01/14/20 01/14/20 01/14/20 15:32 15:33 15:38 Temperature Pulse Rate 93 68 107 Respiratory Rate Blood Pressure 123/99 121/82 (mmHg) O2 Sat by Pulse 100 99 100 Oximetry 01/14/20 01/14/20 01/14/20 15:49 15:54 15:57 Temperature Pulse Rate 62 72 66 Respiratory Rate Blood Pressure 108/76 112/81 134/87 (mmHg) O2 Sat by Pulse 99 99 100 Oximetry 01/14/20 01/14/20 01/14/20 16:00 16:08 16:10 Temperature 95.5 F Pulse Rate 52 125 Respiratory 18 Rate Blood Pressure 134/89 127/89 (mmHg) O2 Sat by Pulse 99 99 Oximetry 01/14/20 01/14/20 01/14/20 16:14 16:18 16:22 Temperature Pulse Rate 62 60 64 Respiratory Rate Blood Pressure 129/87 116/86 136/85 (mmHg) O2 Sat by Pulse 99 99 99 Oximetry 01/14/20 01/14/20 01/14/20 16:55 17:00 17:01 Temperature 99.0 F 99.0 F 99.0 F Pulse Rate 70 71 73 Respiratory Rate Blood Pressure 128/93 130/78 (mmHg) O2 Sat by Pulse 98 92 95 Oximetry 01/14/20 01/14/20 01/14/20 17:05 17:11 17:15 Temperature 99.0 F 99.0 F 99.0 F Pulse Rate 120 143 148 Respiratory Rate Blood Pressure 173/129 179/106 151/115 (mmHg) O2 Sat by Pulse 95 96 97 Oximetry 01/14/20 01/14/20 01/14/20 17:20 17:24 17:29 Temperature 99.0 F 99.0 F 99.0 F Pulse Rate 133 115 81 Respiratory Rate Blood Pressure 137/113 129/109 129/98 (mmHg) O2 Sat by Pulse 96 97 98 Oximetry 01/14/20 01/14/20 01/14/20 17:42 17:45 17:47 Temperature 99.1 F 99.1 F 99.1 F Pulse Rate 97 131 124 Respiratory 24 Rate Blood Pressure 112/93 112/93 75/57 (mmHg) O2 Sat by Pulse 98 98 98 Oximetry 01/14/20 01/14/20 01/14/20 17:50 17:55 18:00 Temperature 99.1 F 99.1 F Pulse Rate 76 151 97 Respiratory 29 Rate Blood Pressure 149/99 149/99 (mmHg) O2 Sat by Pulse 98 96 97 Oximetry 01/14/20 01/14/20 01/14/20 18:16 18:31 18:47 Temperature 99.0 F 99.0 F 98.8 F Pulse Rate 80 60 63 Respiratory Rate Blood Pressure 131/87 105/82 135/74 (mmHg) O2 Sat by Pulse 97 97 97 Oximetry 01/14/20 01/14/20 01/14/20 19:00 19:01 19:16 Temperature 98.6 F 98.4 F Pulse Rate 54 61 Respiratory 27 Rate Blood Pressure 146/65 151/103 (mmHg) O2 Sat by Pulse 97 97 Oximetry 01/14/20 01/14/20 01/14/20 19:46 20:01 20:16 Temperature 97.9 F 97.5 F 97.7 F Pulse Rate 66 122 93 Respiratory Rate Blood Pressure 143/82 155/91 139/98 (mmHg) O2 Sat by Pulse 100 99 100 Oximetry 01/14/20 01/14/20 01/14/20 20:31 20:46 21:00 Temperature 97.3 F 97.2 F Pulse Rate 67 Respiratory 16 Rate Blood Pressure 111/78 97/85 (mmHg) O2 Sat by Pulse 100 Oximetry 01/14/20 01/14/20 01/14/20 21:02 21:16 21:30 Temperature 97.2 F 97.2 F 97.0 F Pulse Rate 61 90 87 Respiratory Rate Blood Pressure 99/75 113/76 114/84 (mmHg) O2 Sat by Pulse 100 100 100 Oximetry 01/14/20 01/14/20 01/14/20 21:46 22:00 22:15 Temperature 97.0 F 97.0 F 97.2 F Pulse Rate 64 59 84 Respiratory 22 Rate Blood Pressure 98/79 114/63 98/80 (mmHg) O2 Sat by Pulse 100 100 100 Oximetry 01/14/20 01/14/20 01/14/20 22:31 22:46 23:00 Temperature 97.0 F 97.0 F 97.0 F Pulse Rate 66 60 63 Respiratory 22 Rate Blood Pressure 109/69 103/76 97/78 (mmHg) O2 Sat by Pulse 100 100 100 Oximetry 01/14/20 01/14/20 01/14/20 23:05 23:15 23:30 Temperature 97.2 F 97.2 F 97.3 F Pulse Rate 70 56 68 Respiratory Rate Blood Pressure 111/82 106/77 (mmHg) O2 Sat by Pulse 100 100 100 Oximetry 01/14/20 01/15/20 01/15/20 23:45 00:00 00:15 Temperature 97.3 F 97.5 F 97.5 F Pulse Rate 64 69 66 Respiratory 25 Rate Blood Pressure 100/76 115/94 117/86 (mmHg) O2 Sat by Pulse 99 100 100 Oximetry 01/15/20 01/15/20 01/15/20 00:31 01:00 01:15 Temperature 97.5 F 97.3 F 97.0 F Pulse Rate 67 65 66 Respiratory 19 Rate Blood Pressure 103/81 100/76 98/74 (mmHg) O2 Sat by Pulse 100 99 99 Oximetry 01/15/20 01/15/20 01/15/20 01:30 01:45 02:00 Temperature 96.8 F 96.6 F 96.3 F Pulse Rate 64 64 64 Respiratory 18 Rate Blood Pressure 102/77 105/79 103/81 (mmHg) O2 Sat by Pulse 100 100 100 Oximetry 01/15/20 01/15/20 01/15/20 02:15 02:30 02:45 Temperature 96.1 F 95.7 F 95.7 F Pulse Rate 62 58 61 Respiratory Rate Blood Pressure 106/81 122/92 118/87 (mmHg) O2 Sat by Pulse 100 100 100 Oximetry 01/15/20 01/15/20 01/15/20 03:00 03:15 03:30 Temperature 95.7 F 95.7 F 95.7 F Pulse Rate 62 62 61 Respiratory 22 Rate Blood Pressure 127/91 128/98 126/96 (mmHg) O2 Sat by Pulse 100 100 100 Oximetry 01/15/20 01/15/20 01/15/20 03:45 04:00 04:15 Temperature 95.7 F 95.7 F 95.7 F Pulse Rate 53 60 62 Respiratory 17 Rate Blood Pressure 115/86 104/80 109/88 (mmHg) O2 Sat by Pulse 100 100 100 Oximetry 01/15/20 01/15/20 01/15/20 04:30 04:45 05:00 Temperature 95.9 F 95.9 F 96.3 F Pulse Rate 62 62 62 Respiratory 18 Rate Blood Pressure 105/77 101/80 105/84 (mmHg) O2 Sat by Pulse 100 99 100 Oximetry 01/15/20 01/15/20 01/15/20 05:15 05:30 05:45 Temperature 96.4 F 96.6 F 97.0 F Pulse Rate 64 64 67 Respiratory Rate Blood Pressure 100/80 107/81 105/81 (mmHg) O2 Sat by Pulse 100 100 100 Oximetry 01/15/20 01/15/20 01/15/20 06:00 06:15 06:30 Temperature 97.2 F 97.5 F 97.7 F Pulse Rate 65 70 67 Respiratory 19 Rate Blood Pressure 107/82 126/94 123/93 (mmHg) O2 Sat by Pulse 100 100 100 Oximetry 01/15/20 01/15/20 01/15/20 07:00 07:30 08:00 Temperature 98.1 F 98.2 F 97.9 F Pulse Rate 71 73 72 Respiratory 19 Rate Blood Pressure 127/93 125/89 111/86 (mmHg) O2 Sat by Pulse 100 99 99 Oximetry 01/15/20 01/15/20 01/15/20 08:31 09:00 09:30 Temperature 97.3 F 97.3 F 97.2 F Pulse Rate 66 68 69 Respiratory Rate Blood Pressure 101/78 105/82 109/85 (mmHg) O2 Sat by Pulse 99 99 100 Oximetry 01/15/20 10:00 Temperature 97.0 F Pulse Rate 70 Respiratory Rate Blood Pressure 112/84 (mmHg) O2 Sat by Pulse 100 Oximetry Intake and Output Last 24 Hours 01/13/20 01/14/20 01/15/20 01/16/20 06:59 06:59 06:59 06:59 Intake Total 2842.5 Output Total 216 75 Balance 2626.5 -75 Weight 242 lb 8.136 oz Intake: IV Fluids 2459 LR 509 NS 950 Medicated IV 383.5 Amiodarone 268.2 Propofol 115.3 Output: [place] 216 75 Vent: CMV Infusions: propofol, LR, amio drip Medications: Chlorhexidine Gluconate (Peridex Mouth Wash 0.12%*) 15 ml TOPICAL Q4H [facility] Last Admin: 01/15/20 08:35 Dose: 15 ml Dextrose (D50w Syringe 50 Ml*) 12.5 gm IV PUSH .FOR FS < 60 - SS PRN PRN Reason: FS < 60 Famotidine (Pepcid Iv*) 20 mg IV SLOW PU BID [facility] Last Admin: 01/15/20 10:18 Dose: 20 mg Fentanyl Citrate (Fentanyl*) 25 mcg IV Q1H PRN PRN Reason: PAIN - SEVERE Propofol (Diprivan*) 100 mls @ 16.819 mls/hr IV .PER PROTOCOL [facility]; Protocol Last Admin: 01/15/20 10:18 Dose: 13.2 mls/hr Amiodarone HCl (Nexterone 360 Mg/200 Ml Ivpremix*) 360 mg in 200 mls @ 16.667 mls/hr IV .SEE PROTOCOL [facility] Last Admin: 01/15/20 00:31 Dose: 16.667 mls/hr Norepinephrine Bitartrate (Levophed 16 Mcg/Ml Premix*) 4,000 mcg in 250 mls @ 18.75 mls/hr IV .PER PROTOCOL [facility]; Protocol Lactated Ringer's (Lactated Ringers 1000 Ml Bag*) 1,000 mls @ 125 mls/hr IV PER RATE [facility] Last Admin: 01/15/20 10:18 Dose: 125 mls/hr Insulin Human Lispro (Humalog*) 0 units SUBCUT FS Q4 ICU [facility]; Protocol Last Admin: 01/15/20 10:24 Dose: 12 unit Ondansetron HCl (Zofran Inj*) 4 mg IV Q6H PRN PRN Reason: NAUSEA/VOMITING Physical Exam: Constitutional: sedated and intubated, no distress, no diaphoresis Head: normocephalic, atraumatic Eyes: no pallor, no icterus ENT: moist mucous membranes Neck: soft, supple CVS: normal rate, regular, no murmur Chest/Resp: bilateral air entry, no rhales, no wheeze, no rhonchi, no acc muscle use Abdomen/GI: soft, nontender, nondistended, BS+ Ext/Msk: warm, pulses+, no edema. LLE is purple, unknown baseline. Does have history of both superficial and deep venous thromboses in that extremity. Skin: intact, warm Neuro: sedated and intubated, sedation not held, does not open eyes, does not follow commands, no movement any extremity. PERRL 3mm. GCS 3T. Labs: Laboratory Results - last 24 hr 01/14/20 01/14/20 01/14/20 15:38 15:38 15:38 WBC 15.0 H RBC 5.38 Hgb 16.5 Hct 51 MCV 94 MCH 31 MCHC 33 RDW 14 Plt Count 139 L MPV 9.1 Neut % (Auto) 69.7 Lymph % (Auto) 20.5 [place] % (Auto) 7.6 Eos % (Auto) 1.6 Baso % (Auto) 0.6 Absolute Neuts (auto) 10.5 H Absolute Lymphs (auto) 3.1 Absolute Monos (auto) 1.1 H Absolute Eos (auto) 0.2 Absolute Basos (auto) 0.1 Absolute Nucleated RBC 0.0 Nucleated RBC % 0.0 INR (Anticoag Therapy) APTT Fibrinogen D-Dimer, Quantitative Patient Temperature ABG pH ABG pH (Temp Correct) ABG pCO2 ABG pCO2 (Temp Corrct ABG pO2 ABG pO2 (Temp Correct ABG HCO3 ABG O2 Saturation ABG Base Excess Respiration Rate O2 Delivery Device Ventilator Type Vent Mode FiO2 Inspiratory Time PEEP Pressure Support Pressure Control EPAP IPAP BiPAP Sodium 138 Potassium 3.6 Chloride 99 L Carbon Dioxide 17 L Anion Gap 22 H BUN 27 H Creatinine 1.95 H Est GFR ( Amer) 42.7 Est GFR (Non-Af Amer) 35.3 BUN/Creatinine Ratio 13.8 Glucose 361 H POC Glucose (mg/dL) Glucose Meter Confirm Lactic Acid 9.6 H* Calcium 9.9 Phosphorus Magnesium 2.3 Total Bilirubin 0.90 AST 61 H ALT 52 Alkaline Phosphatase 74 Total Creatine Kinase Troponin I 0.06 H* B-Natriuretic Peptide Total Protein 7.4 Albumin 4.1 Globulin 3.3 Albumin/Globulin Ratio 1.2 Triglycerides Cholesterol LDL Cholesterol HDL Cholesterol Urine Color Urine Appearance Urine pH Ur Specific [place]ansom Urine Protein Urine Ketones Urine Blood Urine Nitrate Urine Bilirubin Urine Urobilinogen Ur Leukocyte Esterase Urine WBC (Auto) Urine RBC (Auto) Ur Squamous Epith Cells Urine Bacteria Hyaline Casts Urine Sperm Urine Glucose 01/14/20 01/14/20 01/14/20 15:38 15:38 15:55 WBC RBC Hgb Hct MCV MCH MCHC RDW Plt Count MPV Neut % (Auto) Lymph % (Auto) [place] % (Auto) Eos % (Auto) Baso % (Auto) Absolute Neuts (auto) Absolute Lymphs (auto) Absolute Monos (auto) Absolute Eos (auto) Absolute Basos (auto) Absolute Nucleated RBC Nucleated RBC % INR (Anticoag Therapy) 1.21 H APTT 60.4 H Fibrinogen 200.3 D-Dimer, Quantitative > 1050 H Patient Temperature Cancelled ABG pH Cancelled ABG pH (Temp Correct) Cancelled ABG pCO2 Cancelled ABG pCO2 (Temp Corrct Cancelled ABG pO2 Cancelled ABG pO2 (Temp Correct Cancelled ABG HCO3 Cancelled ABG O2 Saturation Cancelled ABG Base Excess Cancelled Respiration Rate Cancelled O2 Delivery Device Cancelled Ventilator Type Cancelled Vent Mode Cancelled FiO2 Cancelled Inspiratory Time Cancelled PEEP Cancelled Pressure Support Cancelled Pressure Control Cancelled EPAP Cancelled IPAP Cancelled BiPAP Cancelled Sodium Potassium Chloride Carbon Dioxide Anion Gap BUN Creatinine Est GFR ( Amer) Est GFR (Non-Af Amer) BUN/Creatinine Ratio Glucose POC Glucose (mg/dL) Glucose Meter Confirm Lactic Acid Calcium Phosphorus Magnesium Total Bilirubin AST ALT Alkaline Phosphatase Total Creatine Kinase Troponin I B-Natriuretic Peptide 720 H Total Protein Albumin Globulin Albumin/Globulin Ratio Triglycerides Cholesterol LDL Cholesterol HDL Cholesterol Urine Color Urine Appearance Urine pH Ur Specific Ransom Urine Protein Urine Ketones Urine Blood Urine Nitrate Urine Bilirubin Urine Urobilinogen Ur Leukocyte Esterase Urine WBC (Auto) Urine RBC (Auto) Ur Squamous Epith Cells Urine Bacteria Hyaline Casts Urine Sperm Urine Glucose 01/14/20 01/14/20 01/14/20 15:59 16:00 18:23 WBC RBC Hgb Hct MCV MCH MCHC RDW Plt Count MPV Neut % (Auto) Lymph % (Auto) [place] % (Auto) Eos % (Auto) Baso % (Auto) Absolute Neuts (auto) Absolute Lymphs (auto) Absolute Monos (auto) Absolute Eos (auto) Absolute Basos (auto) Absolute Nucleated RBC Nucleated RBC % INR (Anticoag Therapy) APTT Fibrinogen D-Dimer, Quantitative Patient Temperature ABG pH 7.06 L* ABG pH (Temp Correct) ABG pCO2 63 H ABG pCO2 (Temp Corrct ABG pO2 152 H ABG pO2 (Temp Correct ABG HCO3 14.7 L ABG O2 Saturation TNP ABG Base Excess -13.1 L Respiration Rate O2 Delivery Device Ventilator Type Vent Mode FiO2 Inspiratory Time PEEP Pressure Support Pressure Control EPAP IPAP BiPAP Sodium Potassium Chloride Carbon Dioxide Anion Gap BUN Creatinine Est GFR ( Amer) Est GFR (Non-Af Amer) BUN/Creatinine Ratio Glucose POC Glucose (mg/dL) Glucose Meter Confirm Lactic Acid Calcium Phosphorus Magnesium Total Bilirubin AST ALT Alkaline Phosphatase Total Creatine Kinase Troponin I 0.45 H* B-Natriuretic Peptide Total Protein Albumin Globulin Albumin/Globulin Ratio Triglycerides Cholesterol LDL Cholesterol HDL Cholesterol Urine Color Viry Urine Appearance Cloudy Urine pH 5.0 Ur Specific Ransom 1.022 Urine Protein 2+(100 mg/dl) A Urine Ketones Negative Urine Blood 2+ A Urine Nitrate Negative Urine Bilirubin Negative Urine Urobilinogen Negative Ur Leukocyte Esterase Negative Urine WBC (Auto) Trace(0-5/hpf) Urine RBC (Auto) 3+(>10/hpf) A Ur Squamous Epith Cells Present A Urine Bacteria Absent Hyaline Casts Present A Urine Sperm Present A Urine Glucose 3+(>=500 mg/dl) A 01/15/20 01/15/20 01/15/20 00:40 00:40 00:41 WBC RBC Hgb Hct MCV MCH MCHC RDW Plt Count MPV Neut % (Auto) Lymph % (Auto) [place] % (Auto) Eos % (Auto) Baso % (Auto) Absolute Neuts (auto) Absolute Lymphs (auto) Absolute Monos (auto) Absolute Eos (auto) Absolute Basos (auto) Absolute Nucleated RBC Nucleated RBC % INR (Anticoag Therapy) APTT Fibrinogen D-Dimer, Quantitative Patient Temperature ABG pH ABG pH (Temp Correct) ABG pCO2 ABG pCO2 (Temp Corrct ABG pO2 ABG pO2 (Temp Correct ABG HCO3 ABG O2 Saturation ABG Base Excess Respiration Rate O2 Delivery Device Ventilator Type Vent Mode FiO2 Inspiratory Time PEEP Pressure Support Pressure Control EPAP IPAP BiPAP Sodium Potassium Chloride Carbon Dioxide Anion Gap BUN Creatinine Est GFR ( Amer) Est GFR (Non-Af Amer) BUN/Creatinine Ratio Glucose POC Glucose (mg/dL) 402 H* Glucose Meter Confirm Lactic Acid 4.5 H* Calcium Phosphorus Magnesium 2.0 Total Bilirubin AST ALT Alkaline Phosphatase Total Creatine Kinase Troponin I B-Natriuretic Peptide Total Protein Albumin Globulin Albumin/Globulin Ratio Triglycerides Cholesterol LDL Cholesterol HDL Cholesterol Urine Color Urine Appearance Urine pH Ur Specific [place] Urine Protein Urine Ketones Urine Blood Urine Nitrate Urine Bilirubin Urine Urobilinogen Ur Leukocyte Esterase Urine WBC (Auto) Urine RBC (Auto) Ur Squamous Epith Cells Urine Bacteria Hyaline Casts Urine Sperm Urine Glucose 01/15/20 01/15/20 01/15/20 00:45 05:00 05:00 WBC 16.4 H RBC 4.99 Hgb 15.3 Hct 46 MCV 91 MCH 31 MCHC 34 RDW 13 Plt Count 105 L MPV 8.7 Neut % (Auto) 87.7 Lymph % (Auto) 3.3 [place] % (Auto) 8.8 Eos % (Auto) 0.0 Baso % (Auto) 0.2 Absolute Neuts (auto) 14.4 H Absolute Lymphs (auto) 0.5 L Absolute Monos (auto) 1.4 H Absolute Eos (auto) 0.0 Absolute Basos (auto) 0.0 Absolute Nucleated RBC 0.0 Nucleated RBC % 0.0 INR (Anticoag Therapy) APTT Fibrinogen D-Dimer, Quantitative Patient Temperature ABG pH ABG pH (Temp Correct) ABG pCO2 ABG pCO2 (Temp Corrct ABG pO2 ABG pO2 (Temp Correct ABG HCO3 ABG O2 Saturation ABG Base Excess Respiration Rate O2 Delivery Device Ventilator Type Vent Mode FiO2 Inspiratory Time PEEP Pressure Support Pressure Control EPAP IPAP BiPAP Sodium 135 Potassium 5.8 H D Chloride 103 Carbon Dioxide 17 L Anion Gap 15 H BUN 42 H Creatinine 2.05 H Est GFR ( Amer) 40.3 Est GFR (Non-Af Amer) 33.3 BUN/Creatinine Ratio 20.5 H Glucose 383 H POC Glucose (mg/dL) Glucose Meter Confirm 388 H Lactic Acid Calcium 9.1 Phosphorus 6.5 H Magnesium 1.9 Total Bilirubin AST ALT Alkaline Phosphatase Total Creatine Kinase 238 H Troponin I 0.87 H* 0.50 H* B-Natriuretic Peptide Total Protein Albumin Globulin Albumin/Globulin Ratio Triglycerides 142 Cholesterol 116 LDL Cholesterol 43 HDL Cholesterol 45.1 Urine Color Urine Appearance Urine pH Ur Specific Ransom Urine Protein Urine Ketones Urine Blood Urine Nitrate Urine Bilirubin Urine Urobilinogen Ur Leukocyte Esterase Urine WBC (Auto) Urine RBC (Auto) Ur Squamous Epith Cells Urine Bacteria Hyaline Casts Urine Sperm Urine Glucose 01/15/20 01/15/20 06:15 09:40 WBC RBC Hgb Hct MCV MCH MCHC RDW Plt Count MPV Neut % (Auto) Lymph % (Auto) [place] % (Auto) Eos % (Auto) Baso % (Auto) Absolute Neuts (auto) Absolute Lymphs (auto) Absolute Monos (auto) Absolute Eos (auto) Absolute Basos (auto) Absolute Nucleated RBC Nucleated RBC % INR (Anticoag Therapy) APTT Fibrinogen D-Dimer, Quantitative Patient Temperature ABG pH ABG pH (Temp Correct) ABG pCO2 ABG pCO2 (Temp Corrct ABG pO2 ABG pO2 (Temp Correct ABG HCO3 ABG O2 Saturation ABG Base Excess Respiration Rate O2 Delivery Device Ventilator Type Vent Mode FiO2 Inspiratory Time PEEP Pressure Support Pressure Control EPAP IPAP BiPAP Sodium Potassium Chloride Carbon Dioxide Anion Gap BUN Creatinine Est GFR ( Amer) Est GFR (Non-Af Amer) BUN/Creatinine Ratio Glucose POC Glucose (mg/dL) Glucose Meter Confirm 314 H Lactic Acid 3.7 H* Calcium Phosphorus Magnesium Total Bilirubin AST ALT Alkaline Phosphatase Total Creatine Kinase Troponin I B-Natriuretic Peptide Total Protein Albumin Globulin Albumin/Globulin Ratio Triglycerides Cholesterol LDL Cholesterol HDL Cholesterol Urine Color Urine Appearance Urine pH Ur Specific [place] Urine Protein Urine Ketones Urine Blood Urine Nitrate Urine Bilirubin Urine Urobilinogen Ur Leukocyte Esterase Urine WBC (Auto) Urine RBC (Auto) Ur Squamous Epith Cells Urine Bacteria Hyaline Casts Urine Sperm Urine Glucose Imaging: CTH 01/13: Subacute right MCA stroke, right extrernal watershed territory infarcts. Mild local mass effect, effacement of right lateral ventricle. 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 All information is obtained from chart and ED d/t unresponsiveness. He was [place] here [place] [facility] [place] 2 weeks of SOB and palpitations. Was found to be in afib with RVR. During his brief stay, he was a code garay, experiencing left sided plegia, right gaze deviation and dysarthria. He was transferred to stroke for a right MCA occlusion. Apparently there was no endovascular intervention d/t stroke already forming. From there, he went to [facility] for rehab presumptively. Just prior to arrival, he was in the bathroom, said he didnt feel well, was incontinent of stool and then went unresponsive. There was no pulse, found to have PEA arrest. Received 1 epi, and 10mins of CPR with ROSC. Of note, his most recent echo showed cardiomyopathy with EF 25-30%. He was intubated in the field. CTH showed significant right MCA subacute infarct. - Right MCA stroke - PEA cardiac arrest - DM - Aflutter/afib with RVR Plan: Neuro- - GCS 3T. Continue normothermia protocol. Demerol for shivering - CTH showed right MCA subacute infarct from previous hospitalization -Delirium prec; avoid BDZ CVS- -Titrate Pressors to Maintain MAP>65 - Aflutter: Continue amio drip Resp- - Intubated during code in field -Wean Fio2 to keep sat>92% -Bronchodilators PRN, Aspiration prec, Pulmonary Toilet -VAP bundle - Possible aspiration during lunch on 01/14/20 - Plan to wake up tomorrow and attempt to extubate if he does well ID- - Goal temp normothermia, will set for 36celsius. Panculture and Tylenol for fevers GI- -Nutrition: NPO -GI prophylaxis pepcid Renal- -strict I/O, replete to keep K>4, Mg>2 -[place] as indicated Heme- - start heparin drip for stroke prevention Endo- - DM - Maintain BG<200, insulin q4hr - BGs q4hr Musculsk- pressure ulcer prophylaxis. Bedrest. Wounds- none Nutrition- NPO DVT prophylaxis: heparin drip for stroke prevention GI prophylaxis: pepcid [place] Catheter: continue Disposition: Patient requires Critical Care/ICU for PEA arrest, respiratory failure, normothermia, hypotension Patient Clinical Status: critical Code Status: full Total Critical Care time is 30 minutes
[2020-01-15] MEDS ORDERED: Heparin DRIP 25,000 UNITS(*) 25,000 UNITS/500 ML BAG IV SCH ×2 (12:30→16:21)
[2020-01-15] MEDS ORDERED: Heparin VIAL(*) 5000 UNITS/ML VIAL (FIVE THOUSAND) IV SCH (13:00)
[2020-01-15 15:02] LABS: BUN/Creatinine Ratio 21.5 (8-20); Calcium 8.3 mg/dL (8.6-10.3); EGFR African American 46.5 (>60); EGFR Non-African American 38.4 (>60); Potassium 4.8 mmol/L (3.5-5.0)
[2020-01-15] MEDS ORDERED: Heparin VIAL(*) 5000 UNITS/ML VIAL (FIVE THOUSAND) ONE (16:19)
[2020-01-15] MEDS ORDERED: Enoxaparin(*) 30 MG/0.3 ML SYR SUBCUT SCH (18:00)
[2020-01-16] MEDS: Insulin LISPRO* 1 UNITS UNIT SUBCUT SCH ×6 (00:09→20:01)
[2020-01-16] MEDS: Chlorhexidine MOUTHWASH 0.12%* 15 ML UDC TOPICAL SCH ×5 (00:09→19:50)
[2020-01-16] MEDS: Propofol* 100 ML IV SCH ×2 (01:25→10:58)
[2020-01-16] MEDS: Amiodarone 360 MG IVPREMIX* 360 MG/200 ML BAG IV SCH ×2 (01:27→12:19)
[2020-01-16 06:01] LABS: Hematocrit 42 % (42-52); Hemoglobin 14.2 g/dL (14.0-18.0); Mean Corpuscular HGB Conc 33 g/dL (31-36); Mean Corpuscular Hemoglobin 30 pg (27-31); Mean Corpuscular Volume 91 fL (80-94); Red Blood Count 4.68 10^6 /uL (4.18-5.48); Red Cell Distribution Width 14 % (10-15); White Blood Count 13.2 10^3/uL (3.5-10.8)
[2020-01-16 06:15] LABS: BUN/Creatinine Ratio 19.1 (8-20); Calcium 8.9 mg/dL (8.6-10.3); EGFR African American 45.9 (>60); EGFR Non-African American 37.9 (>60); Phosphorus 4.6 mg/dL (2.5-5.0); Potassium 4.1 mmol/L (3.5-5.0)
[2020-01-16 06:18] LABS: ABS Lymphocytes 1.1 10^3/ul (1.0-4.8); ABS Neutrophils 11.1 10^3/ul (1.5-7.7); Eosinophil % 0.1 %; Large Platelets Present; Lymphocyte % 8.1 %; Mean Platelet Volume 8.9 fL (7.4-10.4); Platelet Count 82 10^3/uL (150-450)
[2020-01-16] MEDS: Famotidine IV* 10 MG/ML 2 ML (20 mg) IV SLOW PU SCH ×2 (10:10→20:01)
[2020-01-16] MEDS: Lactated Ringers 1000 ML Bag* 1,000 ML IV SCH (10:19)
--- NOTE | 2020-01-16 11:59 | PN ---
Date of Service: 01/16/20 Critical Care Services: Mr. Ward remains sedated and intubated. He awakens to voice briefly. Nursing staff report that he had increased O2 requirements overnight to 100% but is now down to 80%. He is tolerating the ventilator while on propofol. His heart rate remains elevated with afib on amiodarone. Vital Signs: Temp Pulse Resp BP SpO2 FiO2 98.4 F 110 23 108/80 100 80 01/16/20 10:30 01/16/20 10:30 01/16/20 10:00 01/16/20 10:30 01/16/20 10:30 01/15 09:38 Physical Exam: General: Sedated HEENT: Normocephalic, atraumatic, non-icteric sclera, moist oral mucosa Neck: soft, supple, no JVD CV: Regular rate and rhythm, no murmurs or rubs Pulm/Chest: Good bilateral air entry, no rhonchi or rales, no wheeze Abdomen/GI: soft, nontender, nondistended, +BS noted MSK/Skin: warm, dry, intact, +2 pulses+, no edema or cyanosis Neuro: A&Ox3, no gross focal deficits Psych: Appropriate affect Fluid Balance (Past 24 Hours): I= 6373 O= 2821 Net= 3552 Intake & Output 01/14/20 01/15/20 01/16/20 01/17/20 06:59 06:59 06:59 06:59 Intake Total 2842.5 3531 Output Total 216 2605 500 Balance 2626.5 926 -500 Weight 242 lb 8.136 oz 243 lb 9.773 oz Intake: IV Fluids 2459 2886 LR 509 2886 NS 950 Medicated IV 383.5 645 Amiodarone 268.2 371 Propofol 115.3 274 Oral 0 Output: [place] 216 2605 500 Labs: Laboratory Results - last 24 hr 01/15/20 01/15/20 01/15/20 12:30 14:36 14:36 WBC RBC Hgb Hct MCV MCH MCHC RDW Plt Count MPV Neut % (Auto) Lymph % (Auto) Boyd % (Auto) Eos % (Auto) Baso % (Auto) Absolute Neuts (auto) Absolute Lymphs (auto) Absolute Monos (auto) Absolute Eos (auto) Absolute Basos (auto) Absolute Nucleated RBC Nucleated RBC % Large Platelets APTT Sodium 136 Potassium 4.8 Chloride 103 Carbon Dioxide 20 L Anion Gap 13 H BUN 39 H Creatinine 1.81 H Est GFR ( Amer) 46.5 Est GFR (Non-Af Amer) 38.4 BUN/Creatinine Ratio 21.5 H Glucose 225 H POC Glucose (mg/dL) 278 H Lactic Acid 6.5 H* Calcium 8.3 L Phosphorus Magnesium 01/15/20 01/15/20 01/15/20 14:56 14:56 17:02 WBC RBC Hgb Hct MCV MCH MCHC RDW Plt Count MPV Neut % (Auto) Lymph % (Auto) [place] % (Auto) Eos % (Auto) Baso % (Auto) Absolute Neuts (auto) Absolute Lymphs (auto) Absolute Monos (auto) Absolute Eos (auto) Absolute Basos (auto) Absolute Nucleated RBC Nucleated RBC % Large Platelets APTT 42.2 H Sodium Potassium Chloride Carbon Dioxide Anion Gap BUN Creatinine Est GFR ( Amer) Est GFR (Non-Af Amer) BUN/Creatinine Ratio Glucose POC Glucose (mg/dL) 203 H Lactic Acid 4.5 H* Calcium Phosphorus Magnesium 01/15/20 01/16/20 01/16/20 20:05 05:40 05:40 WBC 13.2 H RBC 4.68 Hgb 14.2 Hct 42 MCV 91 MCH 30 MCHC 33 RDW 14 Plt Count 82 L MPV 8.9 Neut % (Auto) 84.2 Lymph % (Auto) 8.1 [place] % (Auto) 7.4 Eos % (Auto) 0.1 Baso % (Auto) 0.2 Absolute Neuts (auto) 11.1 H Absolute Lymphs (auto) 1.1 Absolute Monos (auto) 1.0 H Absolute Eos (auto) 0.0 Absolute Basos (auto) 0.0 Absolute Nucleated RBC 0.0 Nucleated RBC % 0.0 Large Platelets Present APTT Sodium 142 Potassium 4.1 Chloride 105 Carbon Dioxide 29 Anion Gap 8 BUN 35 H Creatinine 1.83 H Est GFR ( Amer) 45.9 Est GFR (Non-Af Amer) 37.9 BUN/Creatinine Ratio 19.1 Glucose 131 H POC Glucose (mg/dL) Lactic Acid Calcium 8.9 Phosphorus 4.6 Magnesium 1.9 01/16/20 06:25 WBC RBC Hgb Hct MCV MCH MCHC RDW Plt Count MPV Neut % (Auto) Lymph % (Auto) Boyd % (Auto) Eos % (Auto) Baso % (Auto) Absolute Neuts (auto) Absolute Lymphs (auto) Absolute Monos (auto) Absolute Eos (auto) Absolute Basos (auto) Absolute Nucleated RBC Nucleated RBC % Large Platelets APTT Sodium Potassium Chloride Carbon Dioxide Anion Gap BUN Creatinine Est GFR ( Amer) Est GFR (Non-Af Amer) BUN/Creatinine Ratio Glucose POC Glucose (mg/dL) Lactic Acid 2.0 Calcium Phosphorus Magnesium Plan: Critical Care Time:
--- NOTE | 2020-01-16 13:01 | PN ---
Date of Service: 01/16/20 Critical Care Services: Mr. Ward was extubated this afternoon. He states that his chest hurts hurts slightly and that he feels a bit short of breath. He denies other complaint. He knows the month and year. He states that his mother recently, about a month ago and becomes teary eyed. He asks that his father be updated about his condition. Vital Signs: Temp Pulse Resp BP SpO2 FiO2 99.0 F 85 23 115/71 97 80 01/16/20 12:01/16/20 12:01/16/20 10:00 01/16/20 12:01/16/20 12:01/15 09:38 Physical Exam: General: Alert, NAD HEENT: Normocephalic, atraumatic, non-icteric sclera, moist oral mucosa Neck: soft, supple, no JVD CV: Regular rate and rhythm, no murmurs or rubs Pulm/Chest: Good bilateral air entry,few rhonchi bilateral bases Abdomen/GI: soft, nontender, nondistended, +BS noted MSK/Skin: warm, dry, intact, +2 pulses+, no edema or cyanosis Neuro: A&Ox3, no gross focal deficits Psych: Appropriate affect Fluid Balance (Past 24 Hours): I= 6373 O= 2821 Net = + 3552 Intake & Output 01/14/20 01/15/20 01/16/20 01/17/20 06:59 06:59 06:59 06:59 Intake Total 2842.5 3531 Output Total 216 2605 500 Balance 2626.5 926 -500 Weight 242 lb 8.136 oz 243 lb 9.773 oz Intake: IV Fluids 2459 2886 LR 509 2886 NS 950 Medicated IV 383.5 645 Amiodarone 268.2 371 Propofol 115.3 274 Oral 0 Output: [place] 216 2605 500 Labs: Laboratory Results - last 24 hr 01/15/20 01/15/20 01/15/20 14:36 14:36 14:56 WBC RBC Hgb Hct MCV MCH MCHC RDW Plt Count MPV Neut % (Auto) Lymph % (Auto) [place] % (Auto) Eos % (Auto) Baso % (Auto) Absolute Neuts (auto) Absolute Lymphs (auto) Absolute Monos (auto) Absolute Eos (auto) Absolute Basos (auto) Absolute Nucleated RBC Nucleated RBC % Large Platelets APTT 42.2 H Sodium 136 Potassium 4.8 Chloride 103 Carbon Dioxide 20 L Anion Gap 13 H BUN 39 H Creatinine 1.81 H Est GFR ( Amer) 46.5 Est GFR (Non-Af Amer) 38.4 BUN/Creatinine Ratio 21.5 H Glucose 225 H POC Glucose (mg/dL) Lactic Acid 6.5 H* Calcium 8.3 L Phosphorus Magnesium 01/15/20 01/15/20 01/15/20 14:56 17:02 20:05 WBC RBC Hgb Hct MCV MCH MCHC RDW Plt Count MPV Neut % (Auto) Lymph % (Auto) [place] % (Auto) Eos % (Auto) Baso % (Auto) Absolute Neuts (auto) Absolute Lymphs (auto) Absolute Monos (auto) Absolute Eos (auto) Absolute Basos (auto) Absolute Nucleated RBC Nucleated RBC % Large Platelets APTT Sodium Potassium Chloride Carbon Dioxide Anion Gap BUN Creatinine Est GFR ( Amer) Est GFR (Non-Af Amer) BUN/Creatinine Ratio Glucose POC Glucose (mg/dL) 203 H Lactic Acid 4.5 H* Calcium Phosphorus Magnesium 1.9 01/16/20 01/16/20 01/16/20 05:40 05:40 06:25 WBC 13.2 H RBC 4.68 Hgb 14.2 Hct 42 MCV 91 MCH 30 MCHC 33 RDW 14 Plt Count 82 L MPV 8.9 Neut % (Auto) 84.2 Lymph % (Auto) 8.1 [place] % (Auto) 7.4 Eos % (Auto) 0.1 Baso % (Auto) 0.2 Absolute Neuts (auto) 11.1 H Absolute Lymphs (auto) 1.1 Absolute Monos (auto) 1.0 H Absolute Eos (auto) 0.0 Absolute Basos (auto) 0.0 Absolute Nucleated RBC 0.0 Nucleated RBC % 0.0 Large Platelets Present APTT Sodium 142 Potassium 4.1 Chloride 105 Carbon Dioxide 29 Anion Gap 8 BUN 35 H Creatinine 1.83 H Est GFR ( Amer) 45.9 Est GFR (Non-Af Amer) 37.9 BUN/Creatinine Ratio 19.1 Glucose 131 H POC Glucose (mg/dL) Lactic Acid 2.0 Calcium 8.9 Phosphorus 4.6 Magnesium Studies: Chest xray 01/14/20: IMPRESSION:1. Left retrocardiac airspace opacification ( infiltrate versus atelectasis). 2. Similar cardiomegaly. 3. The tip of the enteric tube is not clearly visualized. The endotracheal tube is as expected. CT Brain 01/14/20: IMPRESSION: There are motion degraded. 1. Probably early subacute right MCA and right external watershed territory infarct as above. There is no hemorrhagic focus. Mild local mass effect is characterized by effacement of the right lateral ventricle. Case discussed with Dr. Salguero at 5: 04 PM on January 14, 2020 Abd xray 01/14/20: IMPRESSION: LIMITED STUDY. LINES AND TUBES ABOVE. Chest xray 01/15/20: IMPRESSION: LIMITED STUDY. LINES AND TUBES ABOVE. Chest xray 01/16/20: IMPRESSION: LINES AND TUBES ABOVE. CARDIOMEGALY WITH PULMONARY INTERSTITIAL EDEMA. Impression: Mr. Ward is a 59 yo M with PMH of recent finding of afib with ischemic CVA, DM , distant hx of DVT who was admitted on 01/14/20 after suffering a PEA arrest with quick ROSC, now extubated and alerted/oriented x 3. Diagnoses: * PEA arrest * DM * R MCA CVA * Afib Plan: Neuro: - A/O x 3, NAD - S/p normothermia protocol for cardiac arrest - Recent R MCA ischemic stroke, PT and OT to resume tomorrow CVS: - Hemodynamically stable - Afib with RVR during the day today - Continue amiodarone - Most recent echo shows cardiomyopathy with EF 25-30% Resp: - Extubated ID: - No evidence of infection GI: -Nutrition: -GI prophylaxis Renal: -strict I/O, replete to keep K>4, Mg>2 -[place] as indicated Heme: Endo: - Hold home diabetes meds, continue lispro SSI coverage - Maintain BG<200, insulin protocol as needed Musculsk- pressure ulcer prophylaxis. Bedrest. Wounds- none Nutrition- DVT prophylaxis: GI prophylaxis: [place] Catheter: Anticipate Disposition: Patient requires Critical Care/ICU for continued monitoring s/p PEA cardiac arrest Patient clinical status: Critical but improving Code Status:Full code Total Critical Care time is 45 minutes, excluding procedures/teaching
[2020-01-16] MEDS ORDERED: Metoprolol Tartrate IV* 1 MG/ML 5 ML VIAL ONE ×2 (13:20→13:30)
[2020-01-16] MEDS ORDERED: Digoxin IV* 0.5 MG/2 ML AMP (0.25 MG/ML) ONE (14:23)
[2020-01-16] MEDS ORDERED: Digoxin IV* 0.5 MG/2 ML AMP (0.25 MG/ML) IV ONE (15:00)
[2020-01-16] MEDS ORDERED: Metoprolol Tartrate IV* 1 MG/ML 5 ML VIAL IV ONE (15:00)
[2020-01-16] MEDS ORDERED: Lactated Ringers 1000 ML Bag* 1,000 ML IV SCH (16:45)
[2020-01-16] MEDS ORDERED: Acetaminophen TAB* 325 MG PO PRN (17:49)
[2020-01-16] MEDS: Atorvastatin* 80 MG TAB PO SCH (19:50)
[2020-01-16] MEDS ORDERED: Insulin LISPRO* 1 UNITS UNIT SUBCUT ONE (19:55)
[2020-01-16] MEDS ORDERED: Norepinephrine 16MCG/ML IVPRE* (4 MG/250 ML) in NS 0.9% IV ONE (20:54)
[2020-01-16] MEDS ORDERED: Metoprolol Tartrate TAB* 100 MG TAB PO SCH (21:00)
[2020-01-16] MEDS ORDERED: Metoprolol Tartrate TAB* 25 MG PO SCH (21:00)
[2020-01-16] MEDS ORDERED: DILTIAZEM HCL 60 MG PO SCH (21:00)
[2020-01-16] MEDS ORDERED: Amiodarone 360 MG IVPREMIX* 360 MG/200 ML BAG IV SCH (21:30)
[2020-01-16] MEDS ORDERED: Magnesium Sulfate 1 GM IV* 1 GM/100 ML BAG IV ONE (22:30)
[2020-01-16 22:55] LABS: HIV 4th Generation Nonreactive (Nonreactive)
[2020-01-16 23:05] LABS: Hepatitis C Antibody Negative (Negative)
[2020-01-17] MEDS: Insulin LISPRO* 1 UNITS UNIT SUBCUT SCH ×5 (00:16→17:20)
[2020-01-17 04:16] LABS: ABS Lymphocytes 0.9 10^3/ul (1.0-4.8); ABS Monocytes 0.8 10^3/ul (0-0.8); ABS Neutrophils 7.4 10^3/ul (1.5-7.7); Eosinophil % 0.4 %; Hematocrit 40 % (42-52); Hemoglobin 13.6 g/dL (14.0-18.0); Lymphocyte % 10.1 %; Mean Corpuscular HGB Conc 34 g/dL (31-36); Mean Corpuscular Hemoglobin 31 pg (27-31); Mean Corpuscular Volume 90 fL (80-94); Mean Platelet Volume 9.5 fL (7.4-10.4); Platelet Count 84 10^3/uL (150-450); Red Blood Count 4.42 10^6 /uL (4.18-5.48); Red Cell Distribution Width 13 % (10-15); White Blood Count 9.1 10^3/uL (3.5-10.8)
[2020-01-17 04:38] LABS: BUN/Creatinine Ratio 17.5 (8-20); Calcium 8.8 mg/dL (8.6-10.3); EGFR African American 53.6 (>60); EGFR Non-African American 44.3 (>60); Phosphorus 3.2 mg/dL (2.5-5.0); Potassium 3.8 mmol/L (3.5-5.0)
[2020-01-17] MEDS ORDERED: Aspirin EC TAB* 325 MG PO SCH (09:00)
[2020-01-17] MEDS ORDERED: FLUoxetine CAP* 20 MG PO SCH (09:00)
[2020-01-17] MEDS: Famotidine IV* 10 MG/ML 2 ML (20 mg) IV SLOW PU SCH (09:21)
--- NOTE | 2020-01-17 09:37 | PN ---
Date of Service: 01/17/20 Critical Care Services: Mr. Ward reports that he is feeling well today. He denies chest pain or SOB. He does remain on 4L NC. He denies nausea or abdominal pain. He is hungry and eager to have his diet resumed. He continues to have left sided weakness unchanged since his stroke prior to this admission. Vital Signs: Temp Pulse Resp BP SpO2 FiO2 98.0 F 84 16 126/86 95 50 01/17/20 07:21 01/17/20 06:00 01/17/20 06:00 01/17/20 06:00 01/17/20 06:00 01/15 12:00 Physical Exam: General: Alert, NAD HEENT: Normocephalic, atraumatic, non-icteric sclera, moist oral mucosa Neck: soft, supple, no JVD CV: Regular rate and rhythm, no murmurs or rubs Pulm/Chest: Good bilateral air entry, crackles in bases Abdomen/GI: soft, nontender, nondistended, +BS noted MSK/Skin: warm, dry, intact, +2 pulses+, no edema or cyanosis Neuro: A&Ox3, no movement left UE, minimal movement (unable to lift from bed), left sided facial droop Psych: Appropriate affect Fluid Balance (Past 24 Hours): I= 9267 O= 5031 Net = 4236 Intake & Output 01/15/20 01/16/20 01/17/20 01/18/20 06:59 06:59 06:59 06:59 Intake Total 2842.5 3531 2894 Output Total 216 2605 2210 Balance 2626.5 926 684 Weight 242 lb 8.136 oz 243 lb 9.773 oz 248 lb 0.807 oz Intake: IV Fluids 2459 2886 879 LR 509 2886 879 NS 950 IVPB 1606 LR 1496 Magnesium 110 Medicated IV 383.5 645 409 Amiodarone 268.2 371 409 Propofol 115.3 274 Oral 0 Output: [place] 216 2605 2210 Labs: Laboratory Results - last 24 hr 01/15/20 01/16/20 01/16/20 20:07 00:04 04:25 WBC RBC Hgb Hct MCV MCH MCHC RDW Plt Count MPV Neut % (Auto) Lymph % (Auto) [place] % (Auto) Eos % (Auto) Baso % (Auto) Absolute Neuts (auto) Absolute Lymphs (auto) Absolute Monos (auto) Absolute Eos (auto) Absolute Basos (auto) Absolute Nucleated RBC Nucleated RBC % Hem Pathologist Commnt Sodium Potassium Chloride Carbon Dioxide Anion Gap BUN Creatinine Est GFR ( Amer) Est GFR (Non-Af Amer) BUN/Creatinine Ratio Glucose POC Glucose (mg/dL) 186 H 169 H 114 H Calcium Phosphorus Magnesium Hepatitis C Antibody Hepatitis C Ab Index HIV 1&2 Ab/P24 Ag 4thGn 01/16/20 01/16/20 01/16/20 05:40 09:53 12:22 WBC RBC Hgb Hct MCV MCH MCHC RDW Plt Count MPV Neut % (Auto) Lymph % (Auto) [place] % (Auto) Eos % (Auto) Baso % (Auto) Absolute Neuts (auto) Absolute Lymphs (auto) Absolute Monos (auto) Absolute Eos (auto) Absolute Basos (auto) Absolute Nucleated RBC Nucleated RBC % Hem Pathologist Commnt Sodium Potassium Chloride Carbon Dioxide Anion Gap BUN Creatinine Est GFR ( Amer) Est GFR (Non-Af Amer) BUN/Creatinine Ratio Glucose POC Glucose (mg/dL) 124 H 151 H Calcium Phosphorus Magnesium Hepatitis C Antibody Hepatitis C Ab Index HIV 1&2 Ab/P24 Ag 4thGn 01/16/20 01/16/20 01/16/20 18:07 19:47 19:49 WBC RBC Hgb Hct MCV MCH MCHC RDW Plt Count MPV Neut % (Auto) Lymph % (Auto) [place] % (Auto) Eos % (Auto) Baso % (Auto) Absolute Neuts (auto) Absolute Lymphs (auto) Absolute Monos (auto) Absolute Eos (auto) Absolute Basos (auto) Absolute Nucleated RBC Nucleated RBC % Hem Pathologist Commnt Sodium Potassium Chloride Carbon Dioxide Anion Gap BUN Creatinine Est GFR ( Amer) Est GFR (Non-Af Amer) BUN/Creatinine Ratio Glucose POC Glucose (mg/dL) 188 H 184 H Calcium Phosphorus Magnesium 1.8 L Hepatitis C Antibody Hepatitis C Ab Index HIV 1&2 Ab/P24 Ag 4thGn 01/16/20 01/17/20 01/17/20 21:46 00:11 04:05 WBC RBC Hgb Hct MCV MCH MCHC RDW Plt Count MPV Neut % (Auto) Lymph % (Auto) [place] % (Auto) Eos % (Auto) Baso % (Auto) Absolute Neuts (auto) Absolute Lymphs (auto) Absolute Monos (auto) Absolute Eos (auto) Absolute Basos (auto) Absolute Nucleated RBC Nucleated RBC % Hem Pathologist Commnt Sodium Potassium Chloride Carbon Dioxide Anion Gap BUN Creatinine Est GFR ( Amer) Est GFR (Non-Af Amer) BUN/Creatinine Ratio Glucose POC Glucose (mg/dL) 154 H 176 H Calcium Phosphorus Magnesium Hepatitis C Antibody Negative Hepatitis C Ab Index 0.00 HIV 1&2 Ab/P24 Ag 4thGn Nonreactive 01/17/20 01/17/20 01/17/20 04:06 04:06 09:05 WBC 9.1 RBC 4.42 Hgb 13.6 L Hct 40 L MCV 90 MCH 31 MCHC 34 RDW 13 Plt Count 84 L MPV 9.5 Neut % (Auto) 81.0 Lymph % (Auto) 10.1 [place] % (Auto) 8.3 Eos % (Auto) 0.4 Baso % (Auto) 0.2 Absolute Neuts (auto) 7.4 Absolute Lymphs (auto) 0.9 L Absolute Monos (auto) 0.8 Absolute Eos (auto) 0.0 Absolute Basos (auto) 0.0 Absolute Nucleated RBC 0.0 Nucleated RBC % 0.0 Hem Pathologist Commnt Sodium 142 Potassium 3.8 Chloride 106 Carbon Dioxide 27 Anion Gap 9 BUN 28 H Creatinine 1.60 H Est GFR ( Amer) 53.6 Est GFR (Non-Af Amer) 44.3 BUN/Creatinine Ratio 17.5 Glucose 175 H POC Glucose (mg/dL) 152 H Calcium 8.8 Phosphorus 3.2 Magnesium Hepatitis C Antibody Hepatitis C Ab Index HIV 1&2 Ab/P24 Ag 4thGn Impression: Mr. Ward is a 59 yo M with PMH of recent finding of afib with ischemic CVA, DM , distant hx of DVT who was admitted on 01/14/20 after suffering a PEA arrest with quick ROSC, now extubated and alerted/oriented x 3. Diagnoses: * PEA arrest, ? choking or aspiration * DM * Hx of recent R MCA CVA * Afib Plan: Neuro: - A/O x 3, NAD - Recent R MCA ischemic stroke with persistent left sided weakness, PT and OT ordered - Afib noted, patient only on aspirin per records from [email or web address], requesting records from [facility] [facility]: - Hemodynamically stable - Afib controlled - Stopped amiodarone and resumed diltiazem/cardizem - Most recent echo shows cardiomyopathy with EF 25-30% Resp: - Extubated - Requiring 4L NC, due to pulmonary edema - Plan for lasix x 1 now ID: - Haemophilus Influenza per sputum, but likely contaminant based on presence of epithelial cells and polymicrobial growth GI: - Nutrition: Heart healthy Renal: - strict I/O, replete to keep K>4, Mg>2 - Diuresis as per above Heme: - no acute issues Endo: - Hold home diabetes meds, continue lispro SSI coverage - Maintain BG<200, insulin protocol as needed Musculsk: - No active issues Wounds: - none DVT prophylaxis: - SCDs Disposition: Patient stabilized, extubated, plan for transfer to telemetry unit Patient clinical status: Stable Code Status:Full code Total Critical Care time is 45 minutes, excluding procedures/teaching
[2020-01-17] MEDS ORDERED: Furosemide IV* 10 MG/ML 2 ML VIAL (20 MG) IV ONE (14:00)
[2020-01-17] MEDS ORDERED: Aspirin TAB* 325 MG PO SCH (15:00)
[2020-01-17] MEDS ORDERED: Digoxin IV* 0.5 MG/2 ML AMP (0.25 MG/ML) IV SLOW PU ONE (15:37)
[2020-01-17] MEDS: Diltiazem TAB* 30 MG PO SCH (17:21)
[2020-01-17] MEDS ORDERED: Diltiazem TAB* 60 MG PO SCH (18:00)
[2020-01-17] MEDS: Acetaminophen TAB* 325 MG PO PRN (20:38)
[2020-01-17] MEDS: Metoprolol Tartrate TAB* 50 mg PO SCH (20:39)
[2020-01-17] MEDS: Atorvastatin* 80 MG TAB PO SCH (20:39)
[2020-01-18] MEDS: Diltiazem TAB* 30 MG PO SCH ×2 (00:51→05:55)
[2020-01-18] MEDS: Acetaminophen TAB* 325 MG PO PRN ×2 (05:55→16:15)
[2020-01-18 06:04] LABS: ABS Eosinophils 0.1 10^3/ul (0-0.6); ABS Lymphocytes 0.8 10^3/ul (1.0-4.8); ABS Monocytes 0.8 10^3/ul (0-0.8); ABS Neutrophils 8.3 10^3/ul (1.5-7.7); Eosinophil % 1.1 %; Hematocrit 42 % (42-52); Lymphocyte % 7.6 %; Mean Corpuscular HGB Conc 34 g/dL (31-36); Mean Corpuscular Hemoglobin 30 pg (27-31); Mean Corpuscular Volume 90 fL (80-94); Mean Platelet Volume 9.8 fL (7.4-10.4); Nucleated Red Blood Cells % 0.1; Platelet Count 81 10^3/uL (150-450); Red Blood Count 4.62 10^6 /uL (4.18-5.48); Red Cell Distribution Width 13 % (10-15); White Blood Count 10.1 10^3/uL (3.5-10.8)
[2020-01-18 06:42] LABS: Calcium 8.8 mg/dL (8.6-10.3); Potassium 4.2 mmol/L (3.5-5.0)
[2020-01-18 06:48] LABS: BUN/Creatinine Ratio 18.4 (8-20); EGFR African American 64.7 (>60); EGFR Non-African American 53.5 (>60)
[2020-01-18] MEDS: Metoprolol Tartrate TAB* 50 mg PO SCH ×2 (08:59→22:05)
[2020-01-18] MEDS: Insulin LISPRO* 1 UNITS UNIT SUBCUT SCH ×3 (08:59→17:00)
[2020-01-18] MEDS ORDERED: Potassium Chloride* LIQUID 20 MEQ/15 ML UDC PO ONE (11:31)
[2020-01-18] MEDS ORDERED: Magnesium Sulfate 1 GM IV* 1 GM/100 ML BAG IV ONE (11:32)
[2020-01-18] MEDS ORDERED: Lisinopril TAB* 5 MG PO SCH (12:00)
--- NOTE | 2020-01-18 14:08 | PN ---
Subjective Date of Service: 01/18/20 Interval History: pt c/o pleuritic CP whenever he coughs due to post CPR status. Has condom cath on due to incontinence that developed after his CVA. Remembers that he was being helped to the bathroom at [facility] when he collapsed and needed CPR Objective Active Medications: Acetaminophen (Tylenol Tab*) 650 mg PO Q6H PRN PRN Reason: PAIN - MILD Last Admin: 01/18/20 05:55 Dose: 650 mg Atorvastatin Calcium (Lipitor*) 80 mg PO BEDTIME [facility] Last Admin: 01/17/20 20:39 Dose: 80 mg Dextrose (D50w Syringe 50 Ml*) 12.5 gm IV PUSH .FOR FS < 60 - SS PRN PRN Reason: FS < 60 Insulin Human Lispro (Humalog*) 0 units SUBCUT AC [facility]; Protocol Last Admin: 01/18/20 12:37 Dose: 6 units Metoprolol Tartrate (Lopressor Tab*) 125 mg PO BID [facility] Last Admin: 01/18/20 08:59 Dose: 125 mg Ondansetron HCl (Zofran Inj*) 4 mg IV Q6H PRN PRN Reason: NAUSEA/VOMITING Sacubitril/Valsartan (Entresto (Nf)) 1 tab PO BID [facility] Vital Signs - 8 hr 01/18/20 01/18/20 07:39 09:19 Temperature 97.9 F Pulse Rate 78 Respiratory 78 18 Rate Blood Pressure 135/71 (mmHg) O2 Sat by Pulse 96 Oximetry Oxygen Devices in Use Now: Nasal Cannula Appearance: 59 yo M in nAD, aAOx3 Eyes: No Scleral Icterus, PERRLA Ears/Nose/Mouth/Throat: NL Teeth, Lips, Gums, Mucous Membranes Moist Neck: NL Appearance and Movements; NL JVP, Trachea Midline Respiratory: Symmetrical Chest Expansion and Respiratory Effort, - - rhonchi RML -clear with cough Cardiovascular: - - irregular Abdominal: NL Sounds; No Tenderness; No Distention, No Hepatosplenomegaly Lymphatic: No Cervical Adenopathy Extremities: No Edema Skin: No Rash or Ulcers, No Nodules or Sclerosis Neurological: Alert and Oriented x 3, - - left facial drop, tongue midline, EOMI , left arm at 3+/5, left leg stronger proximally at 4/5, R extremities 5/5 Result Diagrams: 01/18/20 05:26 03/29/20 05:26 Microbiology and Other Data: Microbiology 01/15/20 10:50 Blood Culture - Preliminary Blood Venous No Growth Day 3 01/15/20 10:40 Blood Culture - Preliminary Blood Venous No Growth Day 3 01/15/20 09:40 Aerobic Blood Culture - Preliminary Blood Venous No Growth Day 3 Anaerobic Blood Culture - Preliminary No Growth Day 3 01/15/20 09:40 Aerobic Blood Culture - Preliminary Blood Venous No Growth Day 3 Anaerobic Blood Culture - Preliminary No Growth Day 3 01/15/20 21:45 Gram Stain - Final Sputum Sputum Culture - Final Haemophilus Influenzae Normal [place] 01/14/20 15:59 Urine Culture - Final Urine No Growth (<1,000 CFU/mL) Assess/Plan/Problems-Billing Assessment: Mr. Ward is a 59 yo M with PMH of DM, HTN, L LE DVT 20 yrs ago, recent finding of afib with ischemic CVA(admitted to [facility] for A. fib with RVR 12/30/19, on 12/30 developed left sided weakness-dx of R MCA thrombosis- transferred to [facility] on 12/30, 12/31 had hemorrhagic conversion of CVA, anticoagulation was stopped, d/c to [facility] 01/06/20) On 01/14/20 when walking to bathroom at [facility] had a PEA arrest, intubated, then extubated and transferred out of ICU 01/17/20. At [facility] EF was noted to be 18%- pt was recommended outpatient cardiology f/u and f/u head CT 01/21/20 before restarting ASA or anticoagulation - Patient Problems (1) PEA (Pulseless electrical activity) Comment: ? due to arrythmia? If Pt's EF is still low, he will require either lifeVest or cardiac cath and ICD Cardiology following (2) Pulmonary edema Comment: still hypoxemic and requiring O2 , but improving will tx with a dose of Lasix PO Dr. Luna started Entresto, d/c Cardizem, cont Toprol XL (3) Atrial fibrillation Comment: chronic, rate controlled on BB no anticoagulation due to hemorrhagic converstion of ischemic CVA 01/10/20 (4) CVA, old, hemiparesis Comment: ischemic CVA 12/31/19, R MCA thrombosis with residual left hemiparesis due to hemorrhagic conversion , no ASA, cont statin, repeat CT to be scheduled on 01/21/20 (5) Acute renal failure Comment: due to arrest, resolving (6) DM2 (diabetes mellitus, type 2) Comment: cont ISS holding metformin, glipizide (7) DVT prophylaxis Comment: SCD's, no anticoagulation due to due to hemorrhagic conversion of CVA Status and Disposition: inpatient
[2020-01-18] MEDS ORDERED: Furosemide TAB* 40 MG PO ONE (14:17)
--- NOTE | 2020-01-18 14:18 | CONS ---
CARDIOLOGY CONSULTATION: DATE OF CONSULT: 01/18/20 REASON FOR EVALUATION: Cardiomyopathy. HISTORY OF PRESENT ILLNESS: This is a very complicated 59-year-old gentleman with a history of AFib, diabetes, hypertension, remote tobacco use, who presented on 12/30/19 with 1 week of irregular heartbeat, shortness of breath. He was found to be in AFib with a rapid ventricular response and was started on apixaban. Later that night, he developed dense left-sided hemiparesis with a right MCA occlusion. He was transferred for embolectomy to [facility]. Up there, he was found to have hemorrhagic transformation and was not deemed a candidate for intervention. He also was found to have a low ejection fraction with an EF of 18% up at [facility] based on a note from 01/01/20. It was recommended that he be started on heart failure regimen including PETER inhibitor, carvedilol, diuretics, and aspirin, and restart anticoagulation when safe to do so from neurologic standpoint. He subsequently was transferred to rehab. Echo on 12/31/19 revealed a dilated LV with severely reduced EF 18%, mildly dilated RV with moderately reduced RV function. Negative saline study for right to left shunting. Nonvalvular AFib with rapid ventricular response. It was considered that this could be ischemic or tachycardia induced or nonischemic cardiomyopathy. Given the LV dilatation, it was felt to be longstanding. Atrial fibrillation is difficult to control and required metoprolol 125 b.i.d. and diltiazem 60 mg b.i.d. His aspirin was stopped due the hemorrhagic transformation. He was planned to have a repeat CT in 3 weeks after the stroke on 01/21/20 to see if he could start anticoagulation. He was transferred to rehab, and on 01/14/20 was noted to have responsive episode. He apparently got up to use the bathroom. He was incontinent of stool and went unresponsive. He was found to have a PEA arrest. He received 1 epi and 10 minutes of CPR with return of spontaneous circulation. He was intubated, and in the ICU, he had problems with rapid AFib and was treated with digoxin, amiodarone, and diltiazem. He was intubated and subsequently extubated and transferred to the floor. We are now consulted for further evaluation for medical management. Currently, he is awake and alert. He continues to have a dense left hemiparesis with paralysis of his left upper extremity, weakness of his left lower extremity. He denies chest pain except for tenderness where he had CPR. He has a nonproductive cough. No shortness of breath and no orthopnea. PAST MEDICAL HISTORY: Includes DVT of the left lower extremity in 1991, status post vein surgery and residual edema. AFib with rapid ventricular response was diagnosed on 12/30/19. CVA presumably embolic on 12/30/19. Hemorrhagic transformation precluding embolectomy. Hypertension, hyperlipidemia. Tobacco use, discontinued 20 years ago. He denies asthma or emphysema. He was recently told of sleep apnea apparently up at [place] but has not been treated. He has renal insufficiency. He has cardiomyopathy of unclear etiology. 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 He had umbilical hernia repair. MEDICATIONS: His medications include: 1. Atorvastatin 80 mg a day. 2. Acetaminophen. 3. Diltiazem 30 mg q.6h. 4. Metoprolol 125mg b.i.d. 5. Zofran 4 mg q.6. 6. He had been on amiodarone on 01/16/20. 7. Aspirin on 01/17/20 which was discontinued. ALLERGIES: He has no known drug allergies. FAMILY HISTORY: He has 2 sisters and a brother, no premature coronary disease. Mother of pulmonary fibrosis about a month ago. His father is 81, alive and well. SOCIAL HISTORY: He reports he rarely has alcohol, perhaps 12-pack a year. 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 He denies that he is . REVIEW OF SYSTEMS: Review of systems x10 was negative except as above. PHYSICAL EXAM: He is a well-developed, obese gentleman, 248 pounds, in no apparent distress. No significant JVD. Carotids 2+ with bruits. Extraocular muscles intact. Sclerae anicteric. Cardiac exam: S1, S2 with no clear murmurs , gallops, or rubs. Irregular. Chest: Soft rales at the bases. Abdomen: Obese. Bowel sounds present, nontender. No hepatosplenomegaly. Femoral pulses intact without bruits. Distal pulses intact, 1+ edema left lower extremity, none on the right. Motor strength 5/5 in the right upper extremity and right lower extremity, 2/5 in the left lower extremity, 0/5 in the left upper extremity. Deep tendon reflexes 2/4 in the right upper extremity, 1/4 in the right lower extremity, 0/4 in the left extremities. Blood pressure 135/71, heart rate 78. DIAGNOSTIC STUDIES/LAB DATA: White count of 10.1, hemoglobin of 14, hematocrit of 42, platelet count low at 81. D-dimer from 01/14/20 was greater than 1050. Sodium 137, potassium of 4.2, BUN of 25. Creatinine of 1.36, down from 2.05 on 01/15/20. Glucose is elevated. Magnesium on 01/16/20 was 1.8. Echocardiogram from 12/30/19 revealed EF of 25% to 30%, severely reduced LV function, mild MR, moderately reduced RV function, [id number] TR, PA pressure within normal range. EKG from 01/15/20 revealed sinus rhythm, poor R- wave progression, nonspecific ST-T changes. His EKG from 01/18/20 revealed AFib with elevated ventricular response at 104. Anterior ST-T changes, consider ischemia, poor R-wave progression, possible anterior [place]. He also had an EKG on 01/14/20, which revealed AFib with a rapid ventricular response to 130s with a right bundle-branch block which has since resolved. IMPRESSION AND PLAN: My impression is that Mr. Ward has a cardiomyopathy of unclear etiology, possibilities include ischemic cardiomyopathy as well as tachycardia-induced cardiomyopathy or nonischemic cardiomyopathy. Interventional and therapeutic options are limited by his recent central nervous system bleed, which precludes the use of anticoagulation aspirin at this point in time. I did explain the situation to the patient including the fact that his collapse was unexplained and it could have been related to ventricular arrhythmia given his low ejection fraction. For the time being, I recommend the followin. Would follow neuro recommendations concerning anticoagulation. The suggested plan from [place] was to repeat CT of his head on 01/21/20 and reconsideration of anticoagulation at that point. 2. Would continue with rate control with beta-nora and digoxin. Would try to minimize the use of diltiazem given it is contraindicated given his heart failure. 3. Would try adding a low-dose PETER inhibitor to treat his left ventricular dysfunction. 4. Would consider adding Entresto to his regimen to treat his heart failure ( should be available midday 01.19.20). 5. He may require diuresis depending on his volume state, which appears to be euvolemic at this point. 6. If he converts to sinus rhythm, would consider adding amiodarone to try to maintain sinus rhythm and simplify his management. 7. Would consider a cardiac catheterization to evaluate for coronary disease. This may have to be deferred until after he could be anticoagulated given the potential need for dual antiplatelet therapy and anticoagulation. 8. Would also consider evaluation for an ICD given his low ejection fraction and risk for recurrent life threatening ventricular arrhythmias. I will consult Dr. Leiva for this indication. His prognosis remains guarded. Further recommendation will depend on his clinical course. [id number]/[facility] #: [id number] [place]
--- NOTE | 2020-01-18 14:24 | ECHO ---
*[facility]* [place] [address] Fax #: [phone] Transthoracic Echocardiogram Patient: Lyle Ward : 1960 Study Date: 01/18/2020 Age: 59 Gender: M HR: 69 bpm Height: 73 in /185.4 cm BSA: 2.36 m^2 Weight: 247.5 lb /112.5 kg BMI: 32.7 kg/m^2 *Cafeteria Aide: Tiarra Donahue *Referring Physician: * Alice HernandezReading Physician: * Alexis Luna MD Indications: Congestive Heart Failure. History: Syncope. Atrial fibrillation. Cerebrovascular accident. Risk factors: Diabetes mellitus. Conclusions Summary: - Impressions: The study is unchanged since the study of 12/30/2019 except for minimal improvement in ejection fraction from 15-20% then to 20-25% now.. - Left ventricle: The cavity size is mildly dilated. Wall thickness is moderately increased. Systolic function is severely reduced. The estimated ejection fraction is 20-25%. Severe diffuse hypokinesis with regional variations. Left ventricular diastolic function parameters are indeterminate. Study data: Transthoracic echocardiogram. Procedure: Transthoracic echocardiography was performed. Image quality was good. Complete 2D, spectral Doppler, and color flow Doppler. Location: Bedside. Patient status: Inpatient. Patient room number: 446-2. Comparison is made to the study of 12/30/2019. Rhythm: Normal sinus rhythm with PAC's. Findings Left ventricle: The cavity size is mildly dilated. Wall thickness is moderately increased. Systolic function is severely reduced. The estimated ejection fraction is 20-25%. Severe diffuse hypokinesis with regional variations. Left ventricular diastolic function parameters are indeterminate. Right ventricle: The cavity size is dilated. Wall thickness is normal. Systolic function is normal. Ventricular septum: The ventricular septum is normal. Left atrium: The atrium is normal in size. Right atrium: The atrium is normal in size. Atrial septum: No defect or patent foramen ovale is identified. Mitral valve: The valve is structurally normal. There is no evidence of stenosis. There is trace regurgitation. Aortic valve: The valve is structurally normal. The valve is trileaflet. Cusp separation is normal. Transvalvular velocity is within the normal range. There is no evidence of stenosis. There is trace regurgitation. Tricuspid valve: The valve is structurally normal. There is no evidence of stenosis. There is trace regurgitation. Pulmonic valve: The valve is structurally normal. There is no evidence of stenosis. There is trace regurgitation. Aorta: The aortic root appears normal. Pericardium: There is no significant pericardial effusion. Pulmonary arteries: Systolic pressure can not be accurately estimated. Systemic veins: Inferior vena cava: The vessel is normal in size. There is (>= 50%) respiratory change in the IVC dimension. Pulmonary veins: The Pulmonary veins appear normal. Measurements Left ventricle Value Ref Aortic valve Value Ref BEAU, LAX (H) 6.0 cm 4.2 - 5.8 Peak v, S 1.16 m/sec ---- ESD, LAX (H) 4.9 cm 2.5 - 4.0 VTI, S 19.6 cm ---- FS, LAX (L) 19 % 25 - 43 Mean grad, S 3.0 mm Hg ---- PW, ED, LAX (H) 1.5 cm 0.6 - 1.0 Peak grad, S 5.0 mm Hg ---- Qs 6.2 L/min EDWIGE, VTI 1.95 cm^2 ---- E', lat trey, TDI (L) 9.8 cm/sec >=10.0 EDWIGE, Vmax 1.94 cm^2 ---- E/e', lat trey, 9 TDI Mitral valve Value Ref Peak E 0.84 m/sec ---- LVOT Value Ref Peak A 0 m/sec ---- Diam, S 2.00 cm Decel time 111 ms ---- Area 3.1 cm^2 Peak grad, D 2.8 mm Hg ---- Peak gabrielle, S 0.72 m/sec Peak E/A ratio 278.3 ---- Mean grad, S 1 mm Hg SV 38 ml Pulmonic valve Value Ref Peak v, S 0.6 m/sec ---- Ventricular septum Value Ref Peak grad, S 1.0 mm Hg ---- IVS, ED (H) 1.6 cm 0.6 - 1.0 Aortic root Value Ref Right ventricle Value Ref Root diam 3.9 cm <4.4 BEAU, LAX 3.6 cm BEAU minor ax, (H) 5.2 cm 1.9 - 3.5 Ascending aorta Value Ref A4C mid AAo AP diam, S 4.2 cm ---- Left atrium Value Ref Aortic arch Value Ref AP dim, ES (H) 4.10 cm 3.00 - Arch diam 2.5 cm ---- 4.00 ML dim, A4C 4.1 cm Inferior vena cava Value Ref SI dim, A4C 6.2 cm Diam 2.5 cm ---- Vol/bsa, ES, 1-p 20 ml/m^2 12 - 37 A4C Right atrium Value Ref SI dim, ES 5.2 cm 3.4 - 5.3 ML dim, ES, A4C 4.2 cm 2.6 - 4.4 SI dim, ES, A4C 5.2 cm 3.4 - 5.3 Legend: (L) and (H) magan values outside specified reference range. Prepared and electronically signed by Alexis Luna MD 01/18/2020 14:22
[2020-01-18] MEDS: FLUoxetine CAP* 20 MG PO SCH (16:13)
[2020-01-18] MEDS: Digoxin IV* 0.5 MG/2 ML AMP (0.25 MG/ML) IV SLOW PU SCH (17:25)
[2020-01-18] MEDS ORDERED: Digoxin IV* 0.5 MG/2 ML AMP (0.25 MG/ML) IV SLOW PU SCH (18:00)
[2020-01-18] MEDS: Atorvastatin* 80 MG TAB PO SCH (22:05)
[2020-01-18] MEDS: traMADol TAB* 50 MG PO PRN (22:59)
[2020-01-19 06:44] LABS: BUN/Creatinine Ratio 17.3 (8-20); Calcium 8.8 mg/dL (8.6-10.3); EGFR African American 66.4 (>60); EGFR Non-African American 54.8 (>60); Magnesium 1.5 mg/dL (1.9-2.7); Potassium 3.8 mmol/L (3.5-5.0)
[2020-01-19 07:28] LABS: Troponin I 0.06 ng/mL (<0.03)
[2020-01-19] MEDS: Insulin LISPRO* 1 UNITS UNIT SUBCUT SCH ×3 (09:25→17:41)
[2020-01-19] MEDS: FLUoxetine CAP* 20 MG PO SCH (09:25)
[2020-01-19] MEDS: Metoprolol Tartrate TAB* 50 mg PO SCH ×2 (09:25→19:30)
[2020-01-19] MEDS ORDERED: Magnesium Sulfate 2 GM IV* 2 GM/50 ML BAG IVPB ONE (10:18)
[2020-01-19] MEDS ORDERED: Potassium Chlor TAB* 20 MEQ TAB.ER PO ONE (10:19)
--- NOTE | 2020-01-19 14:30 | PN ---
Subjective Date of Service: 01/19/20 Interval History: pt is on RA today, still feels, then "it's difficult to breathe" due to pain on his chest s/p CPR Objective Active Medications: Acetaminophen (Tylenol Tab*) 650 mg PO Q6H PRN PRN Reason: PAIN - MILD Last Admin: 01/18/20 16:15 Dose: 650 mg Atorvastatin Calcium (Lipitor*) 80 mg PO BEDTIME [facility] Last Admin: 01/18/20 22:05 Dose: 80 mg Dextrose (D50w Syringe 50 Ml*) 12.5 gm IV PUSH .FOR FS < 60 - SS PRN PRN Reason: FS < 60 Digoxin (Digoxin Iv*) 0.125 mg IV SLOW PU Q48HR [facility] Last Admin: 01/18/20 17:25 Dose: 0.125 mg Fluoxetine HCl (Prozac Cap*) 20 mg PO DAILY [facility] Last Admin: 01/19/20 09:25 Dose: 20 mg Insulin Human Lispro (Humalog*) 0 units SUBCUT AC [facility]; Protocol Last Admin: 01/19/20 12:15 Dose: 6 units Magnesium Oxide (Magox 400 Tab*) 800 mg PO DAILY [facility] Metoprolol Tartrate (Lopressor Tab*) 125 mg PO BID [facility] Last Admin: 01/19/20 09:25 Dose: 125 mg Ondansetron HCl (Zofran Inj*) 4 mg IV Q6H PRN PRN Reason: NAUSEA/VOMITING Sacubitril/Valsartan (Entresto (Nf)) 1 tab PO BID [facility] Tramadol HCl (Ultram*) 50 mg PO Q6H PRN PRN Reason: PAIN - MODERATE Last Admin: 01/18/20 22:59 Dose: 50 mg Vital Signs - 8 hr 01/19/20 01/19/20 01/19/20 07:32 08:00 11:27 Temperature 97.9 F 97.7 F Pulse Rate 64 78 Respiratory 18 16 18 Rate Blood Pressure 119/79 131/74 (mmHg) O2 Sat by Pulse 97 94 Oximetry Oxygen Devices in Use Now: None Appearance: 59 yo M in nAD, aAOx3 Eyes: No Scleral Icterus, PERRLA Ears/Nose/Mouth/Throat: NL Teeth, Lips, Gums, Mucous Membranes Moist Neck: NL Appearance and Movements; NL JVP, Trachea Midline Respiratory: Symmetrical Chest Expansion and Respiratory Effort, Clear to Auscultation Cardiovascular: NL Sounds; No Murmurs; No JVD, RRR, - - irregular Abdominal: NL Sounds; No Tenderness; No Distention Lymphatic: No Cervical Adenopathy, No Auricular Adenopathy Extremities: No Edema Skin: No Rash or Ulcers, No Nodules or Sclerosis Neurological: Alert and Oriented x 3, - - left facial droop, tongue midline, EOMI, left arm at 3+/5, left leg stronger proximally at 4/5, R extremities 5/5 Result Diagrams: 01/18/20 05:26 01/19/20 06:09 Microbiology and Other Data: Microbiology 01/15/20 10:50 Blood Culture - Preliminary Blood Venous No Growth Day 3 01/15/20 10:40 Blood Culture - Preliminary Blood Venous No Growth Day 3 01/15/20 09:40 Aerobic Blood Culture - Preliminary Blood Venous No Growth Day 3 Anaerobic Blood Culture - Preliminary No Growth Day 3 01/15/20 09:40 Aerobic Blood Culture - Preliminary Blood Venous No Growth Day 3 Anaerobic Blood Culture - Preliminary No Growth Day 3 01/15/20 21:45 Gram Stain - Final Sputum Sputum Culture - Final Haemophilus Influenzae Normal Dinorah 01/14/20 15:59 Urine Culture - Final Urine No Growth (<1,000 CFU/mL) Assess/Plan/Problems-Billing Assessment: Mr. Ward is a 59 yo M with PMH of DM, HTN, L LE DVT 20 yrs ago, recent finding of afib with ischemic CVA([place] [facility] [place] with RVR 12/30/19, on 12/30 developed left sided weakness-dx of R MCA thrombosis- transferred to [place] on 12/30, 12/31 had hemorrhagic conversion of CVA, anticoagulation was stopped, d/c to [facility] 01/06/20) On 01/14/20 when walking to bathroom at [facility] had a PEA arrest, intubated, then extubated and transferred out of ICU 01/17/20. At [place] EF was noted to be 18%- pt was recommended outpatient cardiology f/u and f/u head CT 01/21/20 before restarting ASA or anticoagulation - Patient Problems (1) PEA (Pulseless electrical activity) Comment: ? due to arrythmia? d/w DR. Leiva, pt should have a lifeVest arranged and go back to [facility] following (2) Pulmonary edema Comment: hypoxemia resolved today appears euvolemic Dr. 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
[2020-01-19] MEDS: traMADol TAB* 50 MG PO PRN (19:30)
[2020-01-19] MEDS: Atorvastatin* 80 MG TAB PO SCH (19:30)
[2020-01-19] MEDS: glipiZIDE TAB* 5 MG PO SCH (19:30)
[2020-01-19] MEDS ORDERED: VALSARTAN PO SCH (21:00)
[2020-01-19] MEDS ORDERED: SACUBITRIL PO SCH (21:00)
[2020-01-19] MEDS: SACUBITRIL PO SCH (23:11)
[2020-01-19] MEDS: Acetaminophen TAB* 325 MG PO PRN (23:11)
[2020-01-19] MEDS: VALSARTAN PO SCH (23:11)
[2020-01-20 06:45] LABS: ABS Eosinophils 0.1 10^3/ul (0-0.6); ABS Lymphocytes 0.9 10^3/ul (1.0-4.8); ABS Monocytes 1.2 10^3/ul (0-0.8); ABS Neutrophils 7.2 10^3/ul (1.5-7.7); Eosinophil % 1.5 %; Hematocrit 41 % (42-52); Hemoglobin 14.2 g/dL (14.0-18.0); Lymphocyte % 9.9 %; Mean Corpuscular HGB Conc 35 g/dL (31-36); Mean Corpuscular Hemoglobin 30 pg (27-31); Mean Corpuscular Volume 88 fL (80-94); Mean Platelet Volume 9.1 fL (7.4-10.4); Platelet Count 113 10^3/uL (150-450); Red Blood Count 4.66 10^6 /uL (4.18-5.48); Red Cell Distribution Width 14 % (10-15); White Blood Count 9.5 10^3/uL (3.5-10.8)
[2020-01-20 07:03] LABS: BUN/Creatinine Ratio 19.7 (8-20); Calcium 8.8 mg/dL (8.6-10.3); EGFR African American 73.3 (>60); EGFR Non-African American 60.6 (>60); Magnesium 1.9 mg/dL (1.9-2.7); Potassium 3.7 mmol/L (3.5-5.0)
[2020-01-20] MEDS: traMADol TAB* 50 MG PO PRN ×2 (08:51→17:35)
[2020-01-20] MEDS: Insulin LISPRO* 1 UNITS UNIT SUBCUT SCH ×3 (08:52→17:37)
[2020-01-20] MEDS: glipiZIDE TAB* 5 MG PO SCH ×2 (08:53→20:29)
[2020-01-20] MEDS: FLUoxetine CAP* 20 MG PO SCH (08:53)
[2020-01-20] MEDS: Magnesium Oxide TAB* 400 MG PO SCH (08:53)
[2020-01-20] MEDS: Metoprolol Tartrate TAB* 50 mg PO SCH ×2 (08:55→20:29)
[2020-01-20] MEDS: VALSARTAN PO SCH ×2 (08:58→20:29)
[2020-01-20] MEDS: SACUBITRIL PO SCH ×2 (08:58→20:29)
[2020-01-20] MEDS: Digoxin IV* 0.5 MG/2 ML AMP (0.25 MG/ML) IV SLOW PU SCH (09:02)
[2020-01-20] MEDS ORDERED: Magnesium Hydroxide LIQ* 30 ML UDC PO PRN (10:20)
[2020-01-20] MEDS: Polyethylene Glycol 3350* 17 GM PACKET PO SCH (11:14)
--- NOTE | 2020-01-20 15:54 | PN ---
Subjective Date of Service: 01/20/20 Interval History: Pt is feeling ok. He has mild discomfort in his chest form CPR. He has no significant improvement in his L UE weakness. His L LE is generally stronger than his L arm. He is to get his life vest tonight. Objective Active Medications: Acetaminophen (Tylenol Tab*) 650 mg PO Q6H PRN PRN Reason: PAIN - MILD Last Admin: 01/19/20 23:11 Dose: 650 mg Atorvastatin Calcium (Lipitor*) 80 mg PO BEDTIME [facility] Last Admin: 01/19/20 19:30 Dose: 80 mg Dextrose (D50w Syringe 50 Ml*) 12.5 gm IV PUSH .FOR FS < 60 - SS PRN PRN Reason: FS < 60 Digoxin (Digoxin Iv*) 0.125 mg IV SLOW PU Q48HR [facility] Last Admin: 01/20/20 09:02 Dose: Not Given Fluoxetine HCl (Prozac Cap*) 20 mg PO DAILY [facility] Last Admin: 01/20/20 08:53 Dose: 20 mg Glipizide (Glucotrol Tab*) 5 mg PO BID [facility] Last Admin: 01/20/20 08:53 Dose: 5 mg Insulin Human Lispro (Humalog*) 0 units SUBCUT AC [facility]; Protocol Last Admin: 01/20/20 12:19 Dose: 6 units Magnesium Hydroxide (Milk Of Magnesia Liq*) 30 ml PO Q6H PRN PRN Reason: CONSTIPATION Magnesium Oxide (Magox 400 Tab*) 800 mg PO DAILY [facility] Last Admin: 01/20/20 08:53 Dose: 800 mg Metoprolol Tartrate (Lopressor Tab*) 125 mg PO BID [facility] Last Admin: 01/20/20 08:55 Dose: 125 mg Ondansetron HCl (Zofran Inj*) 4 mg IV Q6H PRN PRN Reason: NAUSEA/VOMITING Polyethylene Glycol/Electrolytes (Miralax (17 Gm Dose Rafael)) 17 gm PO DAILY [facility] Last Admin: 01/20/20 11:14 Dose: 17 gm Sacubitril/Valsartan (Entresto (Nf)) 1 tab PO BID [facility] Last Admin: 01/20/20 08:58 Dose: 1 tab Tramadol HCl (Ultram*) 50 mg PO Q6H PRN PRN Reason: PAIN - MODERATE Last Admin: 01/20/20 08:51 Dose: 50 mg Vital Signs - 8 hr 01/20/20 01/20/20 01/20/20 08:00 08:51 08:59 Temperature Pulse Rate 66 Respiratory 18 20 Rate Blood Pressure (mmHg) O2 Sat by Pulse Oximetry 01/20/20 01/20/20 01/20/20 09:02 11:22 12:05 Temperature 96.7 F Pulse Rate 66 83 Respiratory 16 Rate Blood Pressure 105/73 (mmHg) O2 Sat by Pulse 97 Oximetry 01/20/20 15:17 Temperature 97.8 F Pulse Rate 60 Respiratory 16 Rate Blood Pressure 114/68 (mmHg) O2 Sat by Pulse 93 Oximetry Oxygen Devices in Use Now: None Appearance: Middle aged male sitting up in chair, eating lunch, NAD Eyes: No Scleral Icterus Ears/Nose/Mouth/Throat: Mucous Membranes Moist Respiratory: Symmetrical Chest Expansion and Respiratory Effort, Clear to Auscultation Cardiovascular: NL Sounds; No Murmurs; No JVD, RRR, No Edema Abdominal: NL Sounds; No Tenderness; No Distention Extremities: No Clubbing, Cyanosis Skin: No Nodules or Sclerosis Neurological: Alert and Oriented x 3, - - 2+ L lines tender strength 0/5 proximal extremity strength, LE strength not test given his position in the chair and wiht lunch. Mild dysarthria. Result Diagrams: 01/20/20 06:21 01/20/20 06:21 Microbiology and Other Data: Microbiology 01/15/20 10:50 Blood Culture - Preliminary Blood Venous No Growth Day 3 01/15/20 10:40 Blood Culture - Preliminary Blood Venous No Growth Day 3 01/15/20 09:40 Aerobic Blood Culture - Preliminary Blood Venous No Growth Day 3 Anaerobic Blood Culture - Preliminary No Growth Day 3 01/15/20 09:40 Aerobic Blood Culture - Preliminary Blood Venous No Growth Day 3 Anaerobic Blood Culture - Preliminary No Growth Day 3 01/15/20 21:45 Gram Stain - Final Sputum Sputum Culture - Final Haemophilus Influenzae Normal Dinorah 01/14/20 15:59 Urine Culture - Final Urine No Growth (<1,000 CFU/mL) Assess/Plan/Problems-Billing Mr. Ward is a 59 yo M with PMH of DM, HTN, L LE DVT 20 yrs ago, recent finding of afib with ischemic CVA (admitted to [facility] [place] for Afib with RVR 12/30/19, on 12/30 developed left sided weakness-dx of R MCA thrombosis- transferred to [place] on 12/30), 12/31 had hemorrhagic conversion of CVA, anticoagulation was stopped, d/c to [facility] 01/06/20. On 01/14/20 when walking to bathroom at [facility] had a PEA arrest. He was subsequently intubated, then extubated and transferred out of ICU 01/17/20. At [place] EF was noted to be 18%. Pt was recommended to have outpatient cardiology f/u and f/u head CT 01/21/20 before restarting ASA or anticoagulation. - Patient Problems (1) PEA (Pulseless electrical activity) Current Visit: Yes Status: Acute Code(s): I46.9 - CARDIAC ARREST, CAUSE UNSPECIFIED SNOMED Code(s): 391407938 Comment: ? secondary to arrhythmia. EF is markedly reduced (known from hospitalization at [place] earlier this month). Continue entrestro, metoprolol tartrate. He will be discharged to [facility] with a life vest tomorrow to continue his rehab. He will need very close cardiac follow up as an outpatient. (2) Acute renal failure Current Visit: Yes Status: Acute Comment: Secondary to cardiac arrest and hypoperfusion leading to possible ATN. Resolving slowly. (3) Atrial fibrillation Current Visit: Yes Status: Acute Code(s): I48.91 - UNSPECIFIED ATRIAL FIBRILLATION SNOMED Code(s): 44470582 Comment: Pt with chronic afib that is rate controlled on metoprolol. No anticoagulation due to hemorrhagic conversion of ischemic CVA 01/01/20. (4) CVA, old, hemiparesis Current Visit: Yes Status: Acute Code(s): I69.359 - HEMIPLGA FOLLOWING CEREBRAL INFARCTION AFFECTING UNSP SIDE SNOMED Code(s): 083033479 Comment: Pt with ischemic CVA 12/31/19, R MCA thrombosis now with residual left hemiparesis due to hemorrhagic conversion. No ASA, cont statin. Repeat CT to be done tomorrow prior to d/c and will then discuss with neuro about starting at least ASA. (5) DM2 (diabetes mellitus, type 2) Current Visit: Yes Status: Acute Comment: Blood sugars are moderately elevated. Will continue glipizide and resume metformin. (6) DVT prophylaxis Current Visit: Yes Status: Acute Code(s): Z29.9 - ENCOUNTER FOR PROPHYLACTIC MEASURES, UNSPECIFIED SNOMED Code(s): 310942603 Comment: SCD's, no anticoagulation due to due to hemorrhagic conversion of CVA 01/01/20 (7) Full code status Current Visit: Yes Status: Acute Code(s): Z78.9 - OTHER SPECIFIED HEALTH STATUS SNOMED Code(s): 907875665 Status and Disposition: d/c to [facility] tomorrow
[2020-01-20] MEDS ORDERED: Digoxin TAB* 0.125 MG PO SCH (17:00)
[2020-01-20] MEDS: Acetaminophen TAB* 325 MG PO PRN (20:28)
[2020-01-20] MEDS: Atorvastatin* 80 MG TAB PO SCH (20:28)
[2020-01-20] MEDS: metFORMIN* 1,000 MG TAB PO SCH (20:29)
[2020-01-21] MEDS: traMADol TAB* 50 MG PO PRN ×2 (04:15→23:22)
[2020-01-21] MEDS: metFORMIN* 1,000 MG TAB PO SCH ×2 (09:07→20:30)
[2020-01-21] MEDS: Polyethylene Glycol 3350* 17 GM PACKET PO SCH ×2 (09:07→09:11)
[2020-01-21] MEDS: glipiZIDE TAB* 5 MG PO SCH ×2 (09:07→20:31)
[2020-01-21] MEDS: Metoprolol Tartrate TAB* 50 mg PO SCH ×2 (09:07→20:29)
[2020-01-21] MEDS: Magnesium Oxide TAB* 400 MG PO SCH (09:08)
[2020-01-21] MEDS: FLUoxetine CAP* 20 MG PO SCH (09:08)
[2020-01-21] MEDS: Insulin LISPRO* 1 UNITS UNIT SUBCUT SCH ×3 (09:08→17:02)
[2020-01-21] MEDS: VALSARTAN PO SCH ×2 (09:08→20:31)
[2020-01-21] MEDS: SACUBITRIL PO SCH ×2 (09:08→20:31)
[2020-01-21] MEDS: Acetaminophen TAB* 325 MG PO PRN ×2 (09:09→20:28)
--- NOTE | 2020-01-21 09:44 | PN ---
Subjective Date of Service: 01/21/20 Interval History: Pt is feeling ok currently. He states this AM he started to feel anxious and thought he was hyperventilating. He had some mild nausea earlier today and this has now resolved. He states he does not want to go to [facility] [place] and would like to go home but he is needing significant assistance with all mobility. Objective Active Medications: Acetaminophen (Tylenol Tab*) 650 mg PO Q6H PRN PRN Reason: PAIN - MILD Last Admin: 01/21/20 09:09 Dose: 650 mg Atorvastatin Calcium (Lipitor*) 80 mg PO BEDTIME [facility] Last Admin: 01/20/20 20:28 Dose: 80 mg Dextrose (D50w Syringe 50 Ml*) 12.5 gm IV PUSH .FOR FS < 60 - SS PRN PRN Reason: FS < 60 Digoxin (Lanoxin Tab*) 0.125 mg PO Q48H [facility] Last Admin: 01/20/20 17:36 Dose: 0.125 mg Fluoxetine HCl (Prozac Cap*) 20 mg PO DAILY [facility] Last Admin: 01/21/20 09:08 Dose: 20 mg Glipizide (Glucotrol Tab*) 5 mg PO BID [facility] Last Admin: 01/21/20 09:07 Dose: 5 mg Insulin Human Lispro (Humalog*) 0 units SUBCUT AC [facility]; Protocol Last Admin: 01/21/20 09:08 Dose: 6 units Magnesium Hydroxide (Milk Of Magnesia Liq*) 30 ml PO Q6H PRN PRN Reason: CONSTIPATION Magnesium Oxide (Magox 400 Tab*) 800 mg PO DAILY [facility] Last Admin: 01/21/20 09:08 Dose: 800 mg Metformin HCl (Glucophage*) 1,000 mg PO BID [facility] Last Admin: 01/21/20 09:07 Dose: 1,000 mg Metoprolol Tartrate (Lopressor Tab*) 125 mg PO BID [facility] Last Admin: 01/21/20 09:07 Dose: 125 mg Ondansetron HCl (Zofran Inj*) 4 mg IV Q6H PRN PRN Reason: NAUSEA/VOMITING Polyethylene Glycol/Electrolytes (Miralax (17 Gm Dose Rafael)) 17 gm PO DAILY [facility] Last Admin: 01/21/20 09:11 Dose: Not Given Sacubitril/Valsartan (Entresto (Nf)) 1 tab PO BID [facility] Last Admin: 01/21/20 09:08 Dose: 1 tab Tramadol HCl (Ultram*) 50 mg PO Q6H PRN PRN Reason: PAIN - MODERATE Last Admin: 01/21/20 04:15 Dose: 50 mg Vital Signs - 8 hr 01/21/20 01/21/20 01/21/20 03:04 04:15 06:54 Temperature 97.3 F Pulse Rate 47 Respiratory 16 18 16 Rate Blood Pressure 127/90 (mmHg) O2 Sat by Pulse 94 Oximetry 01/21/20 07:49 Temperature 98.7 F Pulse Rate 85 Respiratory 20 Rate Blood Pressure 154/92 (mmHg) O2 Sat by Pulse 94 Oximetry Oxygen Devices in Use Now: None Appearance: Middle aged male sitting up in bed, NAD Eyes: No Scleral Icterus Ears/Nose/Mouth/Throat: Mucous Membranes Moist Respiratory: Symmetrical Chest Expansion and Respiratory Effort, Clear to Auscultation Cardiovascular: NL Sounds; No Murmurs; No JVD, - - irregularly irregular, mildly tachycardic Abdominal: NL Sounds; No Tenderness; No Distention Extremities: No Clubbing, Cyanosis Skin: No Rash or Ulcers Neurological: Alert and Oriented x 3, - - flaccid L UE with 3/5 surgical instrument mechanic on the L, L LE with better distal than proximal strength Result Diagrams: 01/20/20 06:21 01/20/20 06:21 Microbiology and Other Data: Microbiology 01/15/20 10:50 Blood Culture - Preliminary Blood Venous No Growth Day 3 01/15/20 10:40 Blood Culture - Preliminary Blood Venous No Growth Day 3 01/15/20 09:40 Aerobic Blood Culture - Preliminary Blood Venous No Growth Day 3 Anaerobic Blood Culture - Preliminary No Growth Day 3 01/15/20 09:40 Aerobic Blood Culture - Preliminary Blood Venous No Growth Day 3 Anaerobic Blood Culture - Preliminary No Growth Day 3 01/15/20 21:45 Gram Stain - Final Sputum Sputum Culture - Final Haemophilus Influenzae Normal Dinorah 01/14/20 15:59 Urine Culture - Final Urine No Growth (<1,000 CFU/mL) Assess/Plan/Problems-Billing Mr. Ward is a 59 yo M with PMH of DM, HTN, L LE DVT 20 yrs ago, recent finding of afib with ischemic CVA (admitted to [facility] [place] for Afib with RVR 12/30/19, on 12/30 developed left sided weakness-dx of R MCA thrombosis- transferred to [place] on 12/30), 12/31 had hemorrhagic conversion of CVA, anticoagulation was stopped, d/c to [facility] [place] 01/06/20. On 01/14/20 when walking to bathroom at [facility] [place] had a PEA arrest. He was subsequently intubated, then extubated and transferred out of ICU 01/17/20. At [place] EF was noted to be 18%. Pt was recommended to have outpatient cardiology f/u and f/u head CT 01/21/20 before restarting ASA or anticoagulation. - Patient Problems (1) PEA (Pulseless electrical activity) Current Visit: Yes Status: Acute Code(s): I46.9 - CARDIAC ARREST, CAUSE UNSPECIFIED SNOMED Code(s): 627598459 Comment: ? secondary to arrhythmia. EF is markedly reduced (known from hospitalization at [place] earlier this month). Continue entrestro, metoprolol tartrate. Pt does not want to be discharged to [facility] [place]. Case management to speak with patient about options. He has his life vest. Follow up appointment scheduled for 01/29/20 at 9:[address] Luna. (2) Acute renal failure Current Visit: Yes Status: Acute Comment: Secondary to cardiac arrest and hypoperfusion leading to possible ATN. Resolving slowly. (3) Atrial fibrillation Current Visit: Yes Status: Acute Code(s): I48.91 - UNSPECIFIED ATRIAL FIBRILLATION SNOMED Code(s): 12258561 Comment: Pt with chronic afib -his HR is not as well controlled today. Monitor for now but if no better by this afternoon will need to adjust his medication regimen. Check digoxin level tomorrow. No anticoagulation due to hemorrhagic conversion of ischemic CVA 01/01/20. (4) CVA, old, hemiparesis Current Visit: Yes Status: Acute Code(s): I69.359 - HEMIPLGA FOLLOWING CEREBRAL INFARCTION AFFECTING UNSP SIDE SNOMED Code(s): 078099921 Comment: Pt with ischemic CVA 12/31/19, R MCA thrombosis now with residual left hemiparesis due to hemorrhagic conversion. No ASA, cont statin. Repeat CT done today. Will discuss results with neuro as there are petechial hemorrhages noted. (5) DM2 (diabetes mellitus, type 2) Current Visit: Yes Status: Acute Comment: Blood sugars remain moderately elevated. Will continue glipizide and metformin. He is also on lispro sliding scale. (6) DVT prophylaxis Current Visit: Yes Status: Acute Code(s): Z29.9 - ENCOUNTER FOR PROPHYLACTIC MEASURES, UNSPECIFIED SNOMED Code(s): 462038856 Comment: SCD's, no anticoagulation due to due to hemorrhagic conversion of CVA 01/01/20 (7) Full code status Current Visit: Yes Status: Acute Code(s): Z78.9 - OTHER SPECIFIED HEALTH STATUS SNOMED Code(s): 472879523 Status and Disposition: pt is currently refusing d/c to [place].
[2020-01-21] MEDS: Atorvastatin* 80 MG TAB PO SCH (20:30)
[2020-01-22 06:35] LABS: Hematocrit 42 % (42-52); Hemoglobin 14.9 g/dL (14.0-18.0); Mean Corpuscular HGB Conc 35 g/dL (31-36); Mean Corpuscular Hemoglobin 31 pg (27-31); Mean Corpuscular Volume 88 fL (80-94); Mean Platelet Volume 8.2 fL (7.4-10.4); Platelet Count 140 10^3/uL (150-450); Red Blood Count 4.81 10^6 /uL (4.18-5.48); Red Cell Distribution Width 14 % (10-15); White Blood Count 8.3 10^3/uL (3.5-10.8)
[2020-01-22 06:52] LABS: BUN/Creatinine Ratio 19.4 (8-20); Calcium 8.8 mg/dL (8.6-10.3); EGFR Non-African American 59.5 (>60); Magnesium 1.8 mg/dL (1.9-2.7); Potassium 4.2 mmol/L (3.5-5.0)
[2020-01-22 06:57] LABS: Digoxin 0.4 ng/ml (0.8-2.0)
[2020-01-22] MEDS ORDERED: Magnesium Sulfate 2 GM IV* 2 GM/50 ML BAG IVPB ONE (07:39)
[2020-01-22] MEDS: metFORMIN* 1,000 MG TAB PO SCH (08:21)
[2020-01-22] MEDS: traMADol TAB* 50 MG PO PRN (08:21)
[2020-01-22] MEDS: Magnesium Oxide TAB* 400 MG PO SCH (08:21)
[2020-01-22] MEDS: Metoprolol Tartrate TAB* 50 mg PO SCH (08:21)
[2020-01-22] MEDS: SACUBITRIL PO SCH (08:22)
[2020-01-22] MEDS: FLUoxetine CAP* 20 MG PO SCH (08:22)
[2020-01-22] MEDS: VALSARTAN PO SCH (08:22)
[2020-01-22] MEDS: glipiZIDE TAB* 5 MG PO SCH (08:22)
[2020-01-22] MEDS: Polyethylene Glycol 3350* 17 GM PACKET PO SCH (08:22)
[2020-01-22] MEDS: Insulin LISPRO* 1 UNITS UNIT SUBCUT SCH ×2 (08:23→12:50)
--- NOTE | 2020-01-22 09:14 | DS ---
CC: Dr. Luna; Dr. Pratt * DISCHARGE SUMMARY: DATE OF ADMISSION: 01/14/20 DATE OF DISCHARGE: 01/22/20 PRIMARY CARE PROVIDER: Dr. Pratt. PRINCIPAL DIAGNOSES: 1. Pulseless electrical activity arrest. 2. 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 3. Atrial fibrillation. DISCHARGE MEDICATIONS: 1. Tylenol 650 mg p.o. q.6 hours p.r.n. pain. 2. Lipitor 80 mg p.o. q.h.s. 3. Digoxin 0.125 mg p.o. q.48 hours. 4. Fluoxetine 20 mg p.o. daily. 5. Glipizide 5 mg p.o. b.i.d. 6. Magnesium oxide 800 mg p.o. daily. 7. Metformin 1000 mg p.o. b.i.d. 8. Metoprolol tartrate 125 mg p.o. b.i.d. 9. Multivitamin 1 tab p.o. daily. 10. MiraLax 17 g p.o. daily. 11. Entresto 24-26 one tab p.o. b.i.d. 12. Simethicone 125 mg p.o. daily p.r.n. gas distension. 13. Tramadol 50 mg p.o. q.6 hours p.r.n. moderate pain. HOSPITAL COURSE: Mr. Ward is a 59-year-old male who was brought to the emergency room on 01/14/20 after sustaining cardiac arrest at [facility] where he was rehabing following his recent right MCA ischemic CVA with hemorrhagic transformation. Reportedly, arrest was PEA. He was intubated in the field. He received chest compression for 5 to 10 minutes. He was admitted to the intensive care unit. He was extubated on 01/16/20. He did note chest discomfort from CPR. The patient underwent cardiology consultation on 01/18/20. At that time, Dr. Luna saw the patient and recommended rate control for his atrial fibrillation with beta-nora and digoxin. It was recommended to minimize the use of diltiazem given his heart failure. Entresto was added to his medication regimen. The patient was not started on diuretic therapy as his volume status is felt to be euvolemic. Eventually, the patient will need cardiac catheterization to evaluate for his coronary artery disease; however, this will be need to be deferred until he could be anticoagulated given the potential need for dual antiplatelet therapy and anticoagulation for the atrial fibrillation. Also consideration for evaluation of ICD is needed to be had. Dr. Leiva ultimately consulted on the patient on 01/19/20. It was recommended that the patient go out with a LifeVest and have reevaluation of his ejection fraction in 6 weeks. At that time, a decision will need to be made about having an implantable defibrillator. In terms of the patient's recent CVA, he continues to have left-sided hemiparesis. He was rehabbing at [facility], however, does not want to go back there. The patient has been accepted to [facility] to continue his rehab program. A CT of the brain was obtained on 01/21/20 to evaluate for possible reinitiation of at least aspirin, if not full anticoagulation, given his history of atrial fibrillation. The CT of the brain revealed hypodensity involving the right middle cerebral artery territory. There are areas of petechial hemorrhage which have increased especially in the superior aspect of the infarct near the vertex. This is in comparison with CT from 01/14/20. I will discuss the findings of the CT scan with Neurology before discharging the patient to rehab. For now, the patient remains off aspirin and full anticoagulation. On the day of discharge, the patient is awake. He is oriented. He is lying in bed, in no acute distress. Cardiac exam reveals an irregularly irregular rhythm with a controlled rate. He has no lower extremity edema. Lungs are clear to auscultation bilaterally. Abdomen is soft, nontender, nondistended. He has left hemiparesis and mild dysarthria. FOLLOW-UP CONCERNS: The patient is being discharged to [facility] today, . The patient should follow up with Dr. Luna on 01/29/20 at 09:30 a.m. This is at the [facility] and [facility]. ACTIVITY LEVEL: As tolerated. DIET: Heart-healthy, diabetic. CONDITION ON DISCHARGE: Stable. TIME SEEN: Thirty-five minutes were spent discharging this patient. [id number]/[facility] #: [id number] MTDD
[2020-01-22 11:45] VITALS: BP 122/79
== END 2020-01-22 14:00 | DRG 196 ==
LOC: ED 15:28 → ICU 16:32 → MEDTELE 01-17 18:32
PROVIDERS: ADMIT Internal Medicine Critical Care Medicine; ATTEND Hospitalist
PROC: 5A12012 Performance of Cardiac Output, Single, Manual (ICD-10-PCS; principal; 2020-01-14)
PROC: 0BH17EZ Insertion of Endotracheal Airway into Trachea, Via Natural or Artificial Opening (ICD-10-PCS; 2020-01-14)
PROC: 3E033XZ Introduction of Vasopressor into Peripheral Vein, Percutaneous Approach (ICD-10-PCS; 2020-01-14)
PROC: 0BP1XDZ Removal of Intraluminal Device from Trachea, External Approach (ICD-10-PCS; 2020-01-16)
DX: I46.9 Cardiac arrest, cause unspecified (principal); I69.954 Hemiplegia and hemiparesis following unspecified cerebrovascular disease affecting left non-dominant side; E87.2 Acidosis; I42.9 Cardiomyopathy, unspecified; N17.9 Acute kidney failure, unspecified; J81.1 Chronic pulmonary edema; I48.91 Unspecified atrial fibrillation; R47.1 Dysarthria and anarthria; E11.9 Type 2 diabetes mellitus without complications; D72.829 Elevated white blood cell count, unspecified; I48.92 Unspecified atrial flutter; I95.9 Hypotension, unspecified; I48.20 Chronic atrial fibrillation, unspecified; D69.6 Thrombocytopenia, unspecified; E78.5 Hyperlipidemia, unspecified; E66.9 Obesity, unspecified; I50.9 Heart failure, unspecified; R15.9 Full incontinence of feces; I10 Essential (primary) hypertension; Z86.718 Personal history of other venous thrombosis and embolism; Z87.891 Personal history of nicotine dependence; Z89.022 Acquired absence of left finger(s); Z72.89 Other problems related to lifestyle; Z68.32 Body mass index [BMI] 32.0-32.9, adult; Z79.84 Long term (current) use of oral hypoglycemic drugs
CPT/HCPCS: 36415; 70450; 71045; 74018; 80048; 80053; 80061; 80162; 81003; 81015; 82550; 82803; 82947; 83605; 83735; 83880; 84100; 84484; 85025; 85027; 85060; 85379; 85384; 85610; 85730; 86803; 87040; 87070; 87077; 87086; 87185; 87205; 87389; 93005; 93306; 94003; 96374; 99285; A9270-GY; J0282; J1160; J1644; J1815; J1940; J2250; J2704; J3010; J3475; J3490

== ENCOUNTER 2020-02-23 07:51 | Observation (INO) | payer BC ==
[2020-02-23 08:31] LABS: ABS Basophils 0.1 10^3/ul (0-0.2); ABS Eosinophils 0.3 10^3/ul (0-0.6); ABS Monocytes 0.7 10^3/ul (0-0.8); Eosinophil % 3.6 %; Hematocrit 42 % (42-52); Hemoglobin 14.4 g/dL (14.0-18.0); Lymphocyte % 12.8 %; Mean Corpuscular HGB Conc 34 g/dL (31-36); Mean Corpuscular Hemoglobin 30 pg (27-31); Mean Corpuscular Volume 89 fL (80-94); Mean Platelet Volume 8.3 fL (7.4-10.4); Platelet Count 213 10^3/uL (150-450); Red Blood Count 4.79 10^6 /uL (4.18-5.48); Red Cell Distribution Width 15 % (10-15); White Blood Count 7.9 10^3/uL (3.5-10.8)
[2020-02-23 08:36] LABS: INR 0.93 (0.82-1.09)
[2020-02-23 08:52] LABS: BUN/Creatinine Ratio 26.7 (8-20); Calcium 9.9 mg/dL (8.6-10.3); EGFR African American 67.5 (>60); EGFR Non-African American 55.8 (>60)
[2020-02-23 08:53] LABS: Potassium 5.1 mmol/L (3.5-5.0)
[2020-02-23] MEDS ORDERED: Diazepam 5 mg TAB (*) ONE (08:54)
[2020-02-23] MEDS ORDERED: diPHENhydraMINE 25 mg TAB ONE (08:54)
[2020-02-23] MEDS ORDERED: ceFAZolin 2 GM PREMIX in ORs 2 GM/50 ML BAG IVPB ONE (09:00)
[2020-02-23] MEDS ORDERED: ceFAZolin VIAL 1 GM in NS *SYRINGE * * 10 ML IVPB ONE (09:00)
[2020-02-23] MEDS ORDERED: Midazolam 5 mg/5 ml VIAL 1 mg/ml 5 ml VIAL (5 mg) ONE (09:06)
[2020-02-23] MEDS ORDERED: fentaNYL 100 mcg/2 ml 50 MCG/ML VIAL ONE (09:06)
[2020-02-23] MEDS ORDERED: Naloxone 0.4 mg VIAL 0.4 mg/ml 1 ml VIAL ONE (09:07)
[2020-02-23] MEDS ORDERED: Lidocaine 1% VIAL 10 MG/ML VIAL ONE ×2 (09:07→10:34)
[2020-02-23] MEDS ORDERED: Flumazenil 0.5 mg/5 ml 0.1 MG/ML 5 ml VIAL ONE (09:07)
[2020-02-23] MEDS ORDERED: Heparin 2 UNITS/ML 1000 mls 2,000 ML IV ONE (09:26)
[2020-02-23] MEDS ORDERED: Iodixanol 320 (CONTRAST) 100 ML SDV ONE (09:26)
[2020-02-23] MEDS ORDERED: nitroGLYCERIN DRIP 25,000 MCG/250 ML BTL ONE (09:45)
[2020-02-23] MEDS ORDERED: Heparin 1,000 UNIT/ML CATH LAB 1,000 10 ml (10,000 UNITS) IV ONE (09:45)
[2020-02-23] MEDS ORDERED: VERAPAMIL 2.5 MG/ML 2 ML VIAL ** 5 mg/2 ml ONE (09:45)
[2020-02-23] MEDS ORDERED: NS 0.9% 1000 ml BAG 1,000 ML IV SCH (10:30)
[2020-02-23] MEDS ORDERED: oxyCODONE/Acetamin 5/325 mg TAB PO PRN (11:18)
[2020-02-23] MEDS: ceFAZolin VIAL(*) 1 GM in NS 0.9% 50 ML 50 ML IVPB SCH (17:20)
[2020-02-24] MEDS: ceFAZolin VIAL(*) 1 GM in NS 0.9% 50 ML 50 ML IVPB SCH ×2 (01:09→08:57)
[2020-02-24 08:27] LABS: BUN/Creatinine Ratio 23.5 (8-20); Calcium 9.2 mg/dL (8.6-10.3); EGFR African American 66.9 (>60); EGFR Non-African American 55.3 (>60); Potassium 4.3 mmol/L (3.5-5.0)
[2020-02-24 15:51] VITALS: BP 136/81
[2020-02-24] MEDS ORDERED: SACUBITRIL PO SCH (21:00)
[2020-02-24] MEDS ORDERED: VALSARTAN PO SCH (21:00)
== END 2020-02-24 17:50 | disposition home health service (06) ==
LOC: MEDTELE 07:51 → CHICATH 07:51
PROVIDERS: ADMIT Specialist; ATTEND Specialist
DX: I48.20 Chronic atrial fibrillation, unspecified (principal); I63.50 Cerebral infarction due to unspecified occlusion or stenosis of unspecified cerebral artery; I46.9 Cardiac arrest, cause unspecified

== ENCOUNTER 2021-11-09 06:50 | Inpatient (IN) ==
[2021-11-09] MEDS ORDERED: Heparin 5000 UNITS/ML 1 mL VIAL ONE (07:03)
[2021-11-09] MEDS ORDERED: Heparin DRIP 25,000 UNITS BAG 25,000 UNITS/500 ML BAG ONE (07:04)
[2021-11-09] MEDS ORDERED: Midazolam 5 mg/5 ml VIAL 1 mg/ml 5 ml VIAL (5 mg) ONE (07:05)
[2021-11-09] MEDS ORDERED: VERAPAMIL 2.5 MG/ML 2 ML VIAL ** 5 mg/2 ml ONE (07:05)
[2021-11-09] MEDS ORDERED: fentaNYL 100 mcg/2 ml 50 MCG/ML VIAL ONE (07:05)
[2021-11-09] MEDS ORDERED: Heparin 1,000 UNIT/ML 10 ml (10,000 UNITS) CATHLAB/DIALYSIS ONE (07:05)
[2021-11-09] MEDS ORDERED: Heparin 2 UNITS/ML 1000 mls 1,000 ML IV ONE (07:06)
[2021-11-09] MEDS ORDERED: Lidocaine 1% VIAL 10 MG/ML VIAL ONE (07:06)
[2021-11-09] MEDS ORDERED: Iohexol 350 (CONTRAST) 200 ML MDV IV ONE (07:06)
[2021-11-09] MEDS ORDERED: nitroGLYCERIN DRIP 25,000 MCG/250 ML BTL ONE ×2 (07:06→07:13)
[2021-11-09 07:15] LABS: Hematocrit 45 % (42-52); Hemoglobin 15.1 g/dL (14.0-18.0); Mean Corpuscular HGB Conc 34 g/dL (31-36); Mean Corpuscular Hemoglobin 31 pg (27-31); Mean Corpuscular Volume 92 fL (80-94); Mean Platelet Volume 8.3 fL (7.4-10.4); Platelet Count 267 10^3/uL (150-450); Red Blood Count 4.86 10^6 /uL (4.18-5.48); Red Cell Distribution Width 14 % (10-15); White Blood Count 14.8 10^3/uL (3.5-10.8)
[2021-11-09 07:28] LABS: Activated Partial Thrombo Time 47.2 seconds (26.0-38.0); INR 2.53 (0.86-1.15)
[2021-11-09 07:33] LABS: ALT 43 U/L (7-52); AST 144 U/L (13-39); Albumin 4.6 g/dL (3.2-5.2); Albumin/Globulin Ratio 1.2 (1-3); Alkaline Phosphatase 62 U/L (35-149); Anion Gap 15 mmol/L (2-11); Blood Urea Nitrogen 21 mg/dL (6-24); CO2 Carbon Dioxide 25 mmol/L (22-32); Calcium 9.8 mg/dL (8.6-10.3); Chloride 97 mmol/L (101-111); Globulin 3.7 g/dL (2-4); Glucose 359 mg/dL (70-100); LDL Cholesterol Direct 197 mg/dL; Magnesium 1.7 mg/dL (1.9-2.7); Potassium 4.9 mmol/L (3.5-5.0); Sodium 137 mmol/L (135-145); Total Protein 8.3 g/dL (6.4-8.9); eGFR CKD-EPI 47.6 (>60)
[2021-11-09 07:38] LABS: Troponin I 31.67 ng/mL (<0.03)
[2021-11-09] MEDS ORDERED: Bivalirudin 250 MG VIAL ONE (07:48)
[2021-11-09] MEDS ORDERED: Adenosine 3 MG/ML 2 ml VIAL (6 mg) ONE (08:26)
[2021-11-09] MEDS ORDERED: Furosemide 40 mg/4 ml IV VIAL ONE (08:44)
[2021-11-09] MEDS ORDERED: Magnesium Sulfate IV 3 GM in NS 0.9% 100 ml BAG 100 ML IVPB ONE (10:30)
[2021-11-09 10:38] LABS: Troponin I > 80.00 ng/mL (<0.03)
[2021-11-09] MEDS ORDERED: Perflutren Lipid Microsphere 3 ML VIAL ONE (11:06)
[2021-11-09 11:16] LABS: Digoxin < 0.3 ng/ml (0.8-2.0)
[2021-11-09] MEDS ORDERED: LORazepam 2 mg VIAL 1 ml IV PUSH ONE (12:46)
[2021-11-09] MEDS ORDERED: Lorazepam PYXIS KEY PRN (12:46)
[2021-11-09 16:28] LABS: Troponin I 54.95 ng/mL (<0.03)
[2021-11-09] MEDS: Ondansetron 4 mg VIAL 2 MG/ML 2 ml VIAL IV PRN (18:06)
[2021-11-09 18:41] LABS: Troponin I 38.74 ng/mL (<0.03)
[2021-11-09] MEDS ORDERED: Metoclopramide 5 MG/ML VIAL (10 mg) IV SLOW PU ONE (23:41)
[2021-11-10 01:41] LABS: Urine Appearance Cloudy; Urine Blood 3+ (Negative); Urine Color Red; Urine Ketones 1+ (Negative); Urine Protein 1+(30 mg/dL) (Negative); Urine Urobilinogen Negative (Negative); Urine pH 5 (5-9)
[2021-11-10 01:42] LABS: Urine Bilirubin Negative (Negative); Urine Glucose 3+(>=500 mg/dL) (Negative); Urine Nitrite Negative (Negative)
[2021-11-10 02:04] LABS: Urine Bacteria Absent (Absent); Urine Granular Casts Present (Absent); Urine Red Blood Cell 3+(>10/hpf) (Absent); Urine White Blood Cell Trace(0-5/hpf) (Absent)
[2021-11-10 06:32] LABS: Hematocrit 42 % (42-52); Hemoglobin 14.4 g/dL (14.0-18.0); Mean Corpuscular HGB Conc 34 g/dL (31-36); Mean Corpuscular Hemoglobin 31 pg (27-31); Mean Corpuscular Volume 91 fL (80-94); Mean Platelet Volume 8.4 fL (7.4-10.4); Platelet Count 239 10^3/uL (150-450); Red Blood Count 4.68 10^6 /uL (4.18-5.48); Red Cell Distribution Width 14 % (10-15)
[2021-11-10 06:41] LABS: Activated Partial Thrombo Time 56.9 seconds (26.0-38.0); INR 2.77 (0.86-1.15)
[2021-11-10 06:45] LABS: Albumin 3.9 g/dL (3.2-5.2); Albumin/Globulin Ratio 1.1 (1-3); Globulin 3.6 g/dL (2-4); HDL Cholesterol 51.6 mg/dL; Magnesium 2.1 mg/dL (1.9-2.7); Phosphorus 2.7 mg/dL (2.5-5.0); Potassium 4.2 mmol/L (3.5-5.0); Total Bilirubin 1.3 mg/dL (0.2-1.0); Total Protein 7.5 g/dL (6.4-8.9); eGFR CKD-EPI 45.6 (>60)
[2021-11-10 06:57] LABS: ABS Basophils 0.1 10^3/ul (0-0.2); ABS Lymphocytes 0.8 10^3/ul (1.0-4.8); ABS Monocytes 1.6 10^3/ul (0-0.8); ABS Neutrophils 12.4 10^3/ul (1.5-7.7); Lymphocyte % 5.4 %
[2021-11-10] MEDS: Metoprolol Tartrate 5 mg VIAL 5 ml VIAL (1 mg/ml) ONE (15:11)
[2021-11-10] MEDS ORDERED: Metoprolol Tartrate 5 mg VIAL 5 ml VIAL (1 mg/ml) IV ONE ×2 (15:43→16:00)
[2021-11-11] MEDS ORDERED: Furosemide 40 mg/4 ml IV VIAL IV SLOW PU ONE (01:26)
[2021-11-11] MEDS ORDERED: Metoprolol Tartrate 5 mg VIAL 5 ml VIAL (1 mg/ml) IV ONE ×2 (01:54→07:40)
[2021-11-11] MEDS: Ondansetron 4 mg VIAL 2 MG/ML 2 ml VIAL IV PRN (02:53)
[2021-11-11 05:00] LABS: ABS Lymphocytes 0.9 10^3/ul (1.0-4.8); ABS Monocytes 1.5 10^3/ul (0-0.8); ABS Neutrophils 10.7 10^3/ul (1.5-7.7); Eosinophil % 0.2 %; Hematocrit 42 % (42-52); Hemoglobin 13.9 g/dL (14.0-18.0); Lymphocyte % 6.9 %; Mean Corpuscular HGB Conc 33 g/dL (31-36); Mean Corpuscular Hemoglobin 31 pg (27-31); Mean Corpuscular Volume 92 fL (80-94); Mean Platelet Volume 8.5 fL (7.4-10.4); Platelet Count 256 10^3/uL (150-450); Red Blood Count 4.56 10^6 /uL (4.18-5.48); Red Cell Distribution Width 14 % (10-15); White Blood Count 13.1 10^3/uL (3.5-10.8)
[2021-11-11 05:17] LABS: Calcium 8.6 mg/dL (8.6-10.3); Magnesium 2.1 mg/dL (1.9-2.7); Potassium 4.4 mmol/L (3.5-5.0); eGFR CKD-EPI 34.2 (>60)
[2021-11-11] MEDS ORDERED: Insulin GLARGINE 100 un/ml 10 ml VIAL SUBCUT ONE (06:02)
[2021-11-11] MEDS ORDERED: NS 0.9% 500 ml BAG 500 ML IV ONE ×2 (10:12→10:30)
[2021-11-11 11:06] LABS: Albumin 3.4 g/dL (3.2-5.2); Direct Bilirubin 0.1 mg/dL (0.03-0.18); Globulin 3.3 g/dL (2-4); Indirect Bilirubin 0.9 mg/dL (0.3-1.0); Total Protein 6.7 g/dL (6.4-8.9)
[2021-11-11 12:01] LABS: INR 2.35 (0.86-1.15)
[2021-11-11 12:25] LABS: Calcium 8.3 mg/dL (8.6-10.3); Potassium 4.2 mmol/L (3.5-5.0)
[2021-11-11] MEDS ORDERED: Digoxin IV 0.5 MG/2 ML AMP (0.25 MG/ML) IV SLOW PU ONE ×3 (12:48→17:17)
[2021-11-11] MEDS ORDERED: fentaNYL 100 mcg/2 ml 50 MCG/ML VIAL ONE (15:58)
[2021-11-11] MEDS ORDERED: Naloxone 0.4 mg VIAL 0.4 mg/ml 1 ml VIAL ONE (15:58)
[2021-11-11] MEDS ORDERED: Midazolam 5 mg/5 ml VIAL 1 mg/ml 5 ml VIAL (5 mg) ONE (15:58)
[2021-11-11] MEDS ORDERED: Flumazenil 0.5 mg/5 ml 0.1 MG/ML 5 ml VIAL ONE (15:58)
[2021-11-11] MEDS ORDERED: LORazepam 2 mg VIAL 1 ml ONE (16:22)
[2021-11-11] MEDS ORDERED: Lorazepam PYXIS KEY ONE (16:22)
[2021-11-11 16:27] LABS: Troponin I 8.98 ng/mL (<0.03)
[2021-11-11 18:35] LABS: INR 2.26 (0.86-1.15)
[2021-11-11] MEDS: Esmolol 10 MG/ML IVPREMIX 2,500 MG/250 ML BAG IV SCH (20:10)
[2021-11-12] MEDS: Esmolol 10 MG/ML IVPREMIX 2,500 MG/250 ML BAG IV SCH ×3 (02:49→07:47)
[2021-11-12 04:40] LABS: INR 2.17 (0.86-1.15)
[2021-11-12 04:50] LABS: Calcium 8.2 mg/dL (8.6-10.3); Magnesium 2.3 mg/dL (1.9-2.7); Phosphorus 3.3 mg/dL (2.5-5.0); eGFR CKD-EPI 37.3 (>60)
[2021-11-12] MEDS ORDERED: Metoprolol Tartrate 5 mg VIAL 5 ml VIAL (1 mg/ml) IV ONE (17:53)
[2021-11-12] MEDS: Polyethylene Glycol 3350 17 GM PACKET PO PRN (18:00)
[2021-11-12 19:48] LABS: INR 1.85 (0.86-1.15)
[2021-11-12] MEDS ORDERED: Dextrose 50% Syringe 50 ml 25 GM/50 ML SYRINGE IV PUSH PRN (22:37)
[2021-11-12 23:28] LABS: Troponin I 7.34 ng/mL (<0.03)
[2021-11-13 02:37] LABS: Troponin I 6.58 ng/mL (<0.03)
[2021-11-13] MEDS ORDERED: Amiodarone 150 mg IVPREMIX 150 MG/100 ML BAG IV ONE ×2 (02:37→02:39)
[2021-11-13] MEDS ORDERED: Metoprolol Tartrate 5 mg VIAL 5 ml VIAL (1 mg/ml) IV ONE (02:39)
[2021-11-13 03:03] LABS: ABS Eosinophils 0.1 10^3/ul (0-0.6); ABS Lymphocytes 1.2 10^3/ul (1.0-4.8); ABS Monocytes 0.9 10^3/ul (0-0.8); ABS Neutrophils 5.5 10^3/ul (1.5-7.7); Eosinophil % 1.4 %; Hematocrit 37 % (42-52); Hemoglobin 12.7 g/dL (14.0-18.0); Lymphocyte % 15.5 %; Mean Corpuscular HGB Conc 34 g/dL (31-36); Mean Corpuscular Hemoglobin 31 pg (27-31); Mean Corpuscular Volume 90 fL (80-94); Platelet Count 265 10^3/uL (150-450); Red Blood Count 4.13 10^6 /uL (4.18-5.48); Red Cell Distribution Width 14 % (10-15); White Blood Count 7.7 10^3/uL (3.5-10.8)
[2021-11-13] MEDS: Metoprolol Tartrate 5 mg VIAL 5 ml VIAL (1 mg/ml) ONE ×3 (03:04→15:06)
[2021-11-13 03:18] LABS: Calcium 8.1 mg/dL (8.6-10.3); Magnesium 2.1 mg/dL (1.9-2.7); Potassium 4.1 mmol/L (3.5-5.0); eGFR CKD-EPI 45.9 (>60)
[2021-11-13 04:57] LABS: Troponin I 6.23 ng/mL (<0.03)
[2021-11-13 06:17] LABS: eGFR CKD-EPI 51.8 (>60)
[2021-11-13] MEDS: Polyethylene Glycol 3350 17 GM PACKET PO PRN (10:09)
[2021-11-13] MEDS ORDERED: Metoprolol Tartrate 5 mg VIAL 5 ml VIAL (1 mg/ml) ONE (15:05)
[2021-11-13] MEDS: Metoprolol Tartrate 5 mg VIAL 5 ml VIAL (1 mg/ml) IV PRN (22:16)
[2021-11-14 06:07] LABS: ABS Basophils 0.1 10^3/ul (0-0.2); ABS Eosinophils 0.1 10^3/ul (0-0.6); ABS Lymphocytes 1.1 10^3/ul (1.0-4.8); ABS Neutrophils 5.5 10^3/ul (1.5-7.7); Eosinophil % 1.6 %; Hematocrit 37 % (42-52); Hemoglobin 12.8 g/dL (14.0-18.0); Lymphocyte % 13.8 %; Mean Corpuscular HGB Conc 34 g/dL (31-36); Mean Corpuscular Hemoglobin 31 pg (27-31); Mean Corpuscular Volume 91 fL (80-94); Mean Platelet Volume 8.2 fL (7.4-10.4); Platelet Count 255 10^3/uL (150-450); Red Cell Distribution Width 14 % (10-15); White Blood Count 7.8 10^3/uL (3.5-10.8)
[2021-11-14 06:25] LABS: Calcium 8.8 mg/dL (8.6-10.3); Potassium 4.1 mmol/L (3.5-5.0)
[2021-11-14] MEDS: Metoprolol Tartrate 5 mg VIAL 5 ml VIAL (1 mg/ml) IV PRN (13:29)
[2021-11-14] MEDS: CMCS: SitaGLIPtin 100 mg TAB (NF) PO SCH (16:18)
[2021-11-14] MEDS ORDERED: Metoprolol Tartrate 5 mg VIAL 5 ml VIAL (1 mg/ml) IV ONE (22:57)
[2021-11-15] MEDS: CMCS: SitaGLIPtin 100 mg TAB (NF) PO SCH (08:34)
[2021-11-15 12:07] VITALS: BP 130/82
== END 2021-11-15 11:37 | disposition home or self-care (01) | DRG 174 ==
LOC: ED 06:50 → CHICATH 07:26 → ICU 09:03 → SUATTDRO 09:03 → MEDTELE 11-13 16:51
PROVIDERS: ATTEND Hospitalist

== ENCOUNTER 2023-09-30 11:10 | Inpatient (IN) ==
[2023-09-30] MEDS ORDERED: Lactated Ringers 1000 ml BAG 1,000 ML IV ONE (11:28)
[2023-09-30 12:02] LABS: Hematocrit 45.6 % (38-53); Hemoglobin 15.4 g/dL (13.2-16.3); Mean Corpuscular Hemoglobin 30.6 pg (27-33); Mean Corpuscular Hgb Conc 33.9 g/dL (31-36); Mean Corpuscular Volume 90.3 fL (80-97); Red Blood Count 5.05 10^6/uL (4.06-5.63); Red Cell Distribution Width 13.9 % (12-17)
[2023-09-30 12:14] LABS: ALT 11 U/L (7-52); AST 14 U/L (13-39); Albumin/Globulin Ratio 1.4 (1-3); Alkaline Phosphatase 85 U/L (35-149); Anion Gap 19 mmol/L (2-16); Blood Urea Nitrogen 56 mg/dL (6-24); CO2 Carbon Dioxide 17 mmol/L (22-32); Calcium 9.1 mg/dL (8.6-10.3); Chloride 97 mmol/L (101-111); Creatinine, Serum 2.23 mg/dL (0.67-1.17); Globulin 2.9 g/dL (2-4); Glucose 227 mg/dL (70-100); Potassium 3.8 mmol/L (3.5-5.0); Sodium 133 mmol/L (135-145); Total Bilirubin 1.5 mg/dL (0.2-1.0); Total Protein 6.9 g/dL (6.4-8.9); eGFR CKD-EPI 32.3 (>60)
[2023-09-30 12:15] LABS: CRP High Sensitivity > 80.00 mg/L (<2.00)
[2023-09-30 12:40] LABS: ABS Lymphocytes 0.1 10^3/uL (1.0-4.8); ABS Monocytes 0.1 10^3/uL (0.0-1.1); ABS Neutrophils 3.8 10^3/uL (1.5-7.6); ABS Nucleated RBC 0.01 10^3/ul; Eosinophil % 0.1 %; Lymphocyte % 1.7 %; Mean Platelet Volume 8.5 fL (7.5-11.2); Nucleated Red Blood Cells % 0.2 %/100WBC (0.0-0.8); Platelet Count 68 10^3/uL (150-450)
[2023-09-30] MEDS ORDERED: Vancomycin 1,500 MG in NS 0.9% 250 ml 250 ML IVPB ONE (14:40)
[2023-09-30] MEDS ORDERED: Cefepime 2 GM in Dextrose 2 GM/50 ML BAG IV ONE (14:40)
[2023-09-30] MEDS: Lactated Ringers 1000 ml BAG 1,000 ML IV ONE ×2 (15:04→17:48)
[2023-09-30 16:52] LABS: Urine Appearance Turbid; Urine Bilirubin Negative (Negative); Urine Blood 2+ (Negative); Urine Color Amber; Urine Glucose 2+(150 mg/dL) (Negative); Urine Ketones Trace (Negative); Urine Nitrite Negative (Negative); Urine Protein 2+(100 mg/dL) (Negative); Urine Specific Gravity 1.014 (1.002-1.030); Urine Urobilinogen Negative (Negative)
[2023-09-30 17:15] LABS: Urine Bacteria Absent (Absent); Urine Red Blood Cell 3+(>10/hpf) (Absent); Urine White Blood Cell Trace(0-5/hpf) (Absent)
[2023-09-30] MEDS: Norepinephrine 16MCG/ML IVPREMIX 4,000 MCG/250 ML D5W BAG IV SCH (18:42)
[2023-09-30] MEDS: Cefepime 2 GM in Dextrose 2 GM/50 ML BAG IV SCH (18:49)
[2023-09-30] MEDS ORDERED: Vancomycin per Pharmacy 1 EA NOTE FOLLOW UP SCH (19:00)
[2023-09-30] MEDS ORDERED: Norepinephrine 4 MG/250mL NS 4,000 MCG/250 ML BAG IV SCH (19:00)
[2023-09-30 20:22] LABS: High Sensitivity Troponin 1 Hr 23 pg/mL (<20)
[2023-10-01] MEDS ORDERED: Morphine 4 MG/ML VIAL (1 ml) IV ONE (05:00)
[2023-10-01] MEDS: Ondansetron 4 mg VIAL 2 MG/ML 2 ml VIAL IV PRN ×2 (05:07→22:02)
[2023-10-01] MEDS ORDERED: Metoprolol Tartrate 5 mg VIAL 5 ml VIAL (1 mg/ml) IV ONE (05:45)
[2023-10-01 06:04] LABS: Hematocrit 41.1 % (38-53); Hemoglobin 13.9 g/dL (13.2-16.3); Mean Corpuscular Hemoglobin 30.9 pg (27-33); Mean Corpuscular Hgb Conc 33.8 g/dL (31-36); Mean Corpuscular Volume 91.5 fL (80-97); Platelet Count 64 10^3/uL (150-450); Red Blood Count 4.49 10^6/uL (4.06-5.63); Red Cell Distribution Width 13.5 % (12-17); White Blood Count 1.4 10^3/uL (3.6-10.2)
[2023-10-01 06:36] LABS: Albumin 3.7 g/dL (3.2-5.2); Albumin/Globulin Ratio 1.2 (1-3); Calcium 8.9 mg/dL (8.6-10.3); Creatinine, Serum 2.72 mg/dL (0.67-1.17); Magnesium 2.4 mg/dL (1.9-2.7); Potassium 4.2 mmol/L (3.5-5.0); Total Bilirubin 1.1 mg/dL (0.2-1.0); Total Protein 6.7 g/dL (6.4-8.9); eGFR CKD-EPI 25.5 (>60)
[2023-10-01] MEDS ORDERED: Digoxin IV 0.5 MG/2 ML AMP (0.25 MG/ML) IV SLOW PU ONE (06:46)
[2023-10-01] MEDS: Cefepime 2 GM in Dextrose 2 GM/50 ML BAG IV SCH (07:19)
[2023-10-01 07:54] LABS: ABS Lymphocytes 0.3 10^3/uL (1.0-4.8); ABS Nucleated RBC 0.01 10^3/ul; Eosinophil % 2.5 %; Lymphocyte % 22.5 %
[2023-10-01] MEDS ORDERED: .Amiodarone 24HR ONLY IV Protocol Order Note IV ONE (08:35)
[2023-10-01] MEDS ORDERED: Amiodarone 150 mg IVPREMIX 150 MG/100 ML BAG IV ONE (08:50)
[2023-10-01] MEDS: Amiodarone 150 mg IVPREMIX 150 MG/100 ML BAG IV SCH ×2 (08:58→09:34)
[2023-10-01] MEDS ORDERED: TOBRAMYCIN 80 MG/2 ML IVPB SCH (09:00)
[2023-10-01] MEDS: Norepinephrine 16MCG/ML IVPREMIX 4,000 MCG/250 ML D5W BAG IV SCH (09:08)
[2023-10-01] MEDS ORDERED: Amiodarone 360 MG IVPREMIX 360 MG/200 ML BAG IV SCH (10:00)
[2023-10-01] MEDS ORDERED: TOBRAMYCIN IV ONE (12:30)
[2023-10-01] MEDS ORDERED: NS 0.9% IV ONE (12:30)
[2023-10-01] MEDS ORDERED: Dextrose 50% Syringe 50 ml 25 GM/50 ML SYRINGE IV PUSH PRN (12:31)
[2023-10-01] MEDS ORDERED: Piperacillin/Tazobac 3.375 BAG 3.375 GM/100 ML BAG IV ONE (12:31)
[2023-10-01] MEDS ORDERED: Zosyn per Pharmacy NOTE FOLLOW UP SCH (13:00)
[2023-10-01] MEDS: Norepinephrine 4 MG/250mL D5W 4,000 MCG/250 ML BAG IV SCH (13:10)
[2023-10-01] MEDS: Vancomycin 1,500 MG in NS 0.9% 250 ml 250 ML IVPB SCH (16:16)
[2023-10-01] MEDS: Amiodarone 360 MG IVPREMIX 360 MG/200 ML BAG IV SCH (16:20)
[2023-10-01] MEDS: ZOSYN 3.375 GM Q8H per EXTENDED INFUSION IV SCH (18:36)
[2023-10-01] MEDS ORDERED: Senna TAB 8.6 mg TAB PO PRN (21:16)
[2023-10-01] MEDS ORDERED: Polyethylene Glycol 3350 17 GM PACKET PO PRN (21:16)
[2023-10-01] MEDS: Calcium Carb (TUMS) 500 mg CHEW TAB PO PRN (22:01)
[2023-10-02] MEDS: ZOSYN 3.375 GM Q8H per EXTENDED INFUSION IV SCH ×3 (02:05→18:20)
[2023-10-02] MEDS: Amiodarone 360 MG IVPREMIX 360 MG/200 ML BAG IV SCH (04:26)
[2023-10-02 04:49] LABS: ABS Eosinophils 0.2 10^3/uL (0.0-0.5); ABS Lymphocytes 0.8 10^3/uL (1.0-4.8); ABS Monocytes 1.2 10^3/uL (0.0-1.1); ABS Neutrophils 13.4 10^3/uL (1.5-7.6); ABS Nucleated RBC 0.03 10^3/ul; Eosinophil % 1.5 %; Hematocrit 38.9 % (38-53); Hemoglobin 13.2 g/dL (13.2-16.3); Lymphocyte % 5.3 %; Mean Corpuscular Hemoglobin 30.3 pg (27-33); Mean Corpuscular Hgb Conc 33.9 g/dL (31-36); Mean Corpuscular Volume 89.2 fL (80-97); Nucleated Red Blood Cells % 0.2 %/100WBC (0.0-0.8); Platelet Count 52 10^3/uL (150-450); Red Blood Count 4.36 10^6/uL (4.06-5.63); Red Cell Distribution Width 13.9 % (12-17); White Blood Count 15.7 10^3/uL (3.6-10.2)
[2023-10-02 05:00] LABS: Albumin/Globulin Ratio 1.1 (1-3); Calcium 8.3 mg/dL (8.6-10.3); Creatinine, Serum 2.6 mg/dL (0.67-1.17); Globulin 2.7 g/dL (2-4); Potassium 3.5 mmol/L (3.5-5.0); Total Bilirubin 0.7 mg/dL (0.2-1.0); Total Protein 5.7 g/dL (6.4-8.9); eGFR CKD-EPI 26.9 (>60)
[2023-10-02 05:35] LABS: Magnesium 2.6 mg/dL (1.9-2.7)
[2023-10-02] MEDS: Norepinephrine 4 MG/250mL D5W 4,000 MCG/250 ML BAG IV SCH (06:32)
[2023-10-02] MEDS: Calcium Carb (TUMS) 500 mg CHEW TAB PO PRN (08:51)
[2023-10-02] MEDS: Ondansetron 4 mg VIAL 2 MG/ML 2 ml VIAL IV PRN (08:51)
[2023-10-02] MEDS ORDERED: Norepinephrine 4 MG/250mL NS 4,000 MCG/250 ML BAG IV SCH (12:00)
[2023-10-02] MEDS: Amiodarone 400 mg TAB PO SCH ×2 (13:51→20:40)
[2023-10-02] MEDS: Vancomycin 1,500 MG in NS 0.9% 250 ml 250 ML IVPB SCH (15:56)
[2023-10-02] MEDS ORDERED: Digoxin IV 0.5 MG/2 ML AMP (0.25 MG/ML) IV SLOW PU ONE (19:57)
[2023-10-02] MEDS ORDERED: Amiodarone 400 mg TAB PO SCH (21:00)
[2023-10-03] MEDS: ZOSYN 3.375 GM Q8H per EXTENDED INFUSION IV SCH ×2 (03:22→10:16)
[2023-10-03 06:15] LABS: ABS Basophils 0.1 10^3/uL (0.0-0.1); ABS Eosinophils 0.1 10^3/uL (0.0-0.5); ABS Lymphocytes 0.9 10^3/uL (1.0-4.8); ABS Monocytes 1.4 10^3/uL (0.0-1.1); ABS Neutrophils 11.7 10^3/uL (1.5-7.6); ABS Nucleated RBC 0.02 10^3/ul; Eosinophil % 0.6 %; Hematocrit 42.4 % (38-53); Hemoglobin 14.1 g/dL (13.2-16.3); Lymphocyte % 6.6 %; Mean Corpuscular Hemoglobin 30.1 pg (27-33); Mean Corpuscular Hgb Conc 33.3 g/dL (31-36); Mean Corpuscular Volume 90.3 fL (80-97); Mean Platelet Volume 9.7 fL (7.5-11.2); Nucleated Red Blood Cells % 0.1 %/100WBC (0.0-0.8); Platelet Count 77 10^3/uL (150-450); White Blood Count 14.2 10^3/uL (3.6-10.2)
[2023-10-03 06:30] LABS: Calcium 8.5 mg/dL (8.6-10.3); Creatinine, Serum 2.02 mg/dL (0.67-1.17); Magnesium 2.4 mg/dL (1.9-2.7); Potassium 4.5 mmol/L (3.5-5.0); eGFR CKD-EPI 36.4 (>60)
[2023-10-03] MEDS: Calcium Carb (TUMS) 500 mg CHEW TAB PO PRN (08:23)
[2023-10-03] MEDS: Ondansetron 4 mg VIAL 2 MG/ML 2 ml VIAL IV PRN (08:23)
[2023-10-03] MEDS: Amiodarone 400 mg TAB PO SCH ×2 (08:55→20:58)
[2023-10-03] MEDS ORDERED: Dextrose 50% Syringe 50 ml 25 GM/50 ML SYRINGE IV PUSH PRN (10:44)
[2023-10-03] MEDS: cefTRIAXone 2 gm/50 mL D5W 2 GM/50 ML BAG IV SCH (12:24)
[2023-10-03] MEDS ORDERED: Vancomycin Trough Check NOTE FOLLOW UP ONE (14:30)
[2023-10-03] MEDS: Insulin GLARGINE 100 un/ml 10 ml VIAL SUBCUT SCH (20:59)
[2023-10-04] MEDS: Calcium Carb (TUMS) 500 mg CHEW TAB PO PRN (02:11)
[2023-10-04] MEDS: Ondansetron 4 mg VIAL 2 MG/ML 2 ml VIAL IV PRN ×2 (02:11→07:50)
[2023-10-04 04:53] LABS: Calcium 8.9 mg/dL (8.6-10.3); Creatinine, Serum 1.62 mg/dL (0.67-1.17); Magnesium 2.1 mg/dL (1.9-2.7); Potassium 4.3 mmol/L (3.5-5.0); eGFR CKD-EPI 47.4 (>60)
[2023-10-04 05:28] LABS: Hematocrit 41.7 % (38-53); Hemoglobin 14.2 g/dL (13.2-16.3); Mean Corpuscular Hemoglobin 30.6 pg (27-33); Red Blood Count 4.63 10^6/uL (4.06-5.63); Red Cell Distribution Width 13.8 % (12-17); White Blood Count 9.9 10^3/uL (3.6-10.2)
[2023-10-04 05:29] LABS: ABS Eosinophils 0.1 10^3/uL (0.0-0.5); ABS Lymphocytes 0.5 10^3/uL (1.0-4.8); ABS Monocytes 0.2 10^3/uL (0.0-1.1); ABS Neutrophils 9.2 10^3/uL (1.5-7.6); ABS Nucleated RBC 0.01 10^3/ul; Eosinophil % 0.6 %; Lymphocyte % 4.7 %; Nucleated Red Blood Cells % 0.1 %/100WBC (0.0-0.8); Platelet Count 94 10^3/uL (150-450)
[2023-10-04] MEDS ORDERED: Digoxin IV 0.5 MG/2 ML AMP (0.25 MG/ML) IV SLOW PU ONE (06:12)
[2023-10-04] MEDS ORDERED: Ondansetron 4 mg VIAL 2 MG/ML 2 ml VIAL IV ONE (07:53)
[2023-10-04] MEDS: Amiodarone 400 mg TAB PO SCH ×2 (09:20→20:21)
[2023-10-04] MEDS ORDERED: Iodixanol (CONTRAST) 320 MG/ML 100 ML SDV IV ONE (11:19)
[2023-10-04] MEDS: cefTRIAXone 2 gm/50 mL D5W 2 GM/50 ML BAG IV SCH (11:29)
[2023-10-04] MEDS: Insulin GLARGINE 100 un/ml 10 ml VIAL SUBCUT SCH (20:22)
[2023-10-05 05:02] LABS: ABS Eosinophils 0.1 10^3/uL (0.0-0.5); ABS Lymphocytes 0.6 10^3/uL (1.0-4.8); ABS Monocytes 0.6 10^3/uL (0.0-1.1); ABS Neutrophils 7.7 10^3/uL (1.5-7.6); Eosinophil % 0.9 %; Hematocrit 38.2 % (38-53); Lymphocyte % 6.5 %; Mean Corpuscular Hemoglobin 30.8 pg (27-33); Mean Corpuscular Hgb Conc 34.2 g/dL (31-36); Mean Corpuscular Volume 90.2 fL (80-97); Mean Platelet Volume 8.5 fL (7.5-11.2); Platelet Count 115 10^3/uL (150-450); Red Blood Count 4.23 10^6/uL (4.06-5.63); Red Cell Distribution Width 13.6 % (12-17); White Blood Count 9.1 10^3/uL (3.6-10.2)
[2023-10-05 05:19] LABS: Creatinine, Serum 1.57 mg/dL (0.67-1.17); Magnesium 1.7 mg/dL (1.9-2.7); Potassium 4.3 mmol/L (3.5-5.0); eGFR CKD-EPI 49.2 (>60)
[2023-10-05] MEDS ORDERED: Magnesium Sulfate IV 1GM/100ML 1 GM/100 ML BAG IV ONE (07:38)
[2023-10-05] MEDS: Amiodarone 400 mg TAB PO SCH ×2 (07:57→21:19)
[2023-10-05] MEDS ORDERED: Ondansetron 4 mg VIAL 2 MG/ML 2 ml VIAL IV ONE (08:20)
[2023-10-05] MEDS ORDERED: Flumazenil 0.5 mg/5 ml 0.1 MG/ML 5 ml VIAL ONE (09:13)
[2023-10-05] MEDS ORDERED: Naloxone 0.4 mg VIAL 0.4 mg/ml 1 ml VIAL ONE (09:13)
[2023-10-05] MEDS ORDERED: fentaNYL 100 mcg/2 ml 50 MCG/ML VIAL ONE (09:13)
[2023-10-05] MEDS ORDERED: Midazolam 5 mg/5 ml VIAL 1 mg/ml 5 ml VIAL (5 mg) ONE (09:13)
[2023-10-05] MEDS ORDERED: Flumazenil 0.5 mg/5 ml 0.1 MG/ML 5 ml VIAL IV PRN (10:13)
[2023-10-05] MEDS ORDERED: Naloxone 0.4 mg VIAL 0.4 mg/ml 1 ml VIAL IV PUSH PRN (10:13)
[2023-10-05] MEDS ORDERED: fentaNYL 100 mcg/2 ml 50 MCG/ML VIAL IV SLOW PU ONE (10:13)
[2023-10-05] MEDS ORDERED: Midazolam 10 mg/10 ml VIAL 1 mg/ml 10 ml VIAL (10 mg) IV SLOW PU ONE (10:13)
[2023-10-05] MEDS: cefTRIAXone 2 gm/50 mL D5W 2 GM/50 ML BAG IV SCH (11:26)
[2023-10-05] MEDS: Insulin GLARGINE 100 un/ml 10 ml VIAL SUBCUT SCH (21:18)
[2023-10-06 06:03] LABS: ABS Eosinophils 0.1 10^3/uL (0.0-0.5); ABS Monocytes 1.4 10^3/uL (0.0-1.1); ABS Neutrophils 7.4 10^3/uL (1.5-7.6); ABS Nucleated RBC 0.01 10^3/ul; Eosinophil % 1.4 %; Hematocrit 40.1 % (38-53); Hemoglobin 13.7 g/dL (13.2-16.3); Lymphocyte % 10.1 %; Mean Corpuscular Hemoglobin 30.9 pg (27-33); Mean Corpuscular Hgb Conc 34.2 g/dL (31-36); Mean Corpuscular Volume 90.5 fL (80-97); Mean Platelet Volume 8.4 fL (7.5-11.2); Nucleated Red Blood Cells % 0.1 %/100WBC (0.0-0.8); Platelet Count 176 10^3/uL (150-450); Red Blood Count 4.43 10^6/uL (4.06-5.63); Red Cell Distribution Width 13.6 % (12-17)
[2023-10-06] MEDS: Calcium Carb (TUMS) 500 mg CHEW TAB PO PRN ×2 (06:09→23:41)
[2023-10-06 06:20] LABS: Calcium 8.7 mg/dL (8.6-10.3); Creatinine, Serum 1.65 mg/dL (0.67-1.17); Magnesium 1.8 mg/dL (1.9-2.7); Potassium 4.4 mmol/L (3.5-5.0); eGFR CKD-EPI 46.4 (>60)
[2023-10-06] MEDS ORDERED: Magnesium Sulfate 2 gm BAG 2 GM/50 ML BAG IVPB ONE (07:18)
[2023-10-06] MEDS: Amiodarone 400 mg TAB PO SCH ×2 (08:32→21:17)
[2023-10-06] MEDS: cefTRIAXone 2 gm/50 mL D5W 2 GM/50 ML BAG IV SCH (11:53)
[2023-10-06] MEDS: Insulin GLARGINE 100 un/ml 10 ml VIAL SUBCUT SCH (21:17)
[2023-10-06] MEDS ORDERED: Insulin GLARGINE 100 un/ml 10 ml VIAL SUBCUT SCH (22:00)
[2023-10-07 07:25] LABS: ABS Basophils 0.1 10^3/uL (0.0-0.1); ABS Eosinophils 0.1 10^3/uL (0.0-0.5); ABS Lymphocytes 0.6 10^3/uL (1.0-4.8); ABS Monocytes 0.5 10^3/uL (0.0-1.1); ABS Nucleated RBC 0.01 10^3/ul; Eosinophil % 1.5 %; Hematocrit 40.7 % (38-53); Hemoglobin 13.6 g/dL (13.2-16.3); Lymphocyte % 7.1 %; Mean Corpuscular Hemoglobin 30.7 pg (27-33); Mean Corpuscular Hgb Conc 33.4 g/dL (31-36); Mean Corpuscular Volume 92.1 fL (80-97); Mean Platelet Volume 8.2 fL (7.5-11.2); Nucleated Red Blood Cells % 0.1 %/100WBC (0.0-0.8); Platelet Count 202 10^3/uL (150-450); Red Blood Count 4.43 10^6/uL (4.06-5.63); Red Cell Distribution Width 13.5 % (12-17); White Blood Count 8.3 10^3/uL (3.6-10.2)
[2023-10-07 07:41] LABS: C Reactive Protein 33.5 mg/L (<8.01); Calcium 9.3 mg/dL (8.6-10.3); Creatinine, Serum 1.53 mg/dL (0.67-1.17); Magnesium 1.8 mg/dL (1.9-2.7); Potassium 4.8 mmol/L (3.5-5.0); eGFR CKD-EPI 50.8 (>60)
[2023-10-07] MEDS ORDERED: Magnesium Sulfate 2 gm BAG 2 GM/50 ML BAG IVPB ONE (07:58)
[2023-10-07] MEDS ORDERED: Influenza vaccine *QUAD* *2023-24* 0.5 ML SYRINGE IM ONE (09:00)
[2023-10-07] MEDS: Amiodarone 400 mg TAB PO SCH (09:11)
[2023-10-07] MEDS: cefTRIAXone 2 gm/50 mL D5W 2 GM/50 ML BAG IV SCH (12:27)
[2023-10-07] MEDS: Insulin GLARGINE 100 un/ml 10 ml VIAL SUBCUT SCH (20:59)
[2023-10-08] MEDS: Calcium Carb (TUMS) 500 mg CHEW TAB PO PRN (04:13)
[2023-10-08 07:03] LABS: Hematocrit 36.4 % (38-53); Hemoglobin 12.3 g/dL (13.2-16.3); Mean Corpuscular Hemoglobin 30.3 pg (27-33); Mean Corpuscular Hgb Conc 33.8 g/dL (31-36); Mean Corpuscular Volume 89.7 fL (80-97); Platelet Count 241 10^3/uL (150-450); Red Blood Count 4.06 10^6/uL (4.06-5.63); Red Cell Distribution Width 13.7 % (12-17); White Blood Count 7.9 10^3/uL (3.6-10.2)
[2023-10-08 07:10] LABS: Calcium 8.8 mg/dL (8.6-10.3); Creatinine, Serum 1.66 mg/dL (0.67-1.17); Potassium 4.4 mmol/L (3.5-5.0)
[2023-10-08] MEDS: cefTRIAXone 2 gm/50 mL D5W 2 GM/50 ML BAG IV SCH (11:39)
[2023-10-08] MEDS: NF:DAPAGLIFLOZIN 10 MG TAB (NF) PO SCH (18:15)
[2023-10-08] MEDS: Insulin GLARGINE 100 un/ml 10 ml VIAL SUBCUT SCH (20:13)
[2023-10-09] MEDS: Calcium Carb (TUMS) 500 mg CHEW TAB PO PRN (02:53)
[2023-10-09] MEDS: NF:DAPAGLIFLOZIN 10 MG TAB (NF) PO SCH (08:35)
[2023-10-09 09:36] LABS: ABS Basophils 0.1 10^3/uL (0.0-0.1); ABS Eosinophils 0.1 10^3/uL (0.0-0.5); ABS Lymphocytes 0.7 10^3/uL (1.0-4.8); ABS Monocytes 0.6 10^3/uL (0.0-1.1); ABS Neutrophils 4.6 10^3/uL (1.5-7.6); Eosinophil % 2.2 %; Hematocrit 37.9 % (38-53); Hemoglobin 13.1 g/dL (13.2-16.3); Lymphocyte % 10.8 %; Mean Corpuscular Hemoglobin 30.8 pg (27-33); Mean Corpuscular Hgb Conc 34.6 g/dL (31-36); Mean Corpuscular Volume 88.9 fL (80-97); Mean Platelet Volume 7.7 fL (7.5-11.2); Nucleated Red Blood Cells % 0.1 %/100WBC (0.0-0.8); Platelet Count 295 10^3/uL (150-450); Red Blood Count 4.26 10^6/uL (4.06-5.63); Red Cell Distribution Width 13.6 % (12-17); White Blood Count 6.1 10^3/uL (3.6-10.2)
[2023-10-09 09:54] LABS: Albumin 3.3 g/dL (3.2-5.2); Albumin/Globulin Ratio 1.2 (1-3); Creatinine, Serum 1.47 mg/dL (0.67-1.17); Globulin 2.7 g/dL (2-4); Potassium 4.3 mmol/L (3.5-5.0); Total Bilirubin 0.5 mg/dL (0.2-1.0); eGFR CKD-EPI 53.3 (>60)
[2023-10-09] MEDS: cefTRIAXone 2 gm/50 mL D5W 2 GM/50 ML BAG IV SCH (12:00)
[2023-10-09] MEDS: Insulin GLARGINE 100 un/ml 10 ml VIAL SUBCUT SCH (21:00)
[2023-10-10] MEDS: NF:DAPAGLIFLOZIN 10 MG TAB (NF) PO SCH (09:38)
[2023-10-10] MEDS: cefTRIAXone 2 gm/50 mL D5W 2 GM/50 ML BAG IV SCH (12:02)
[2023-10-10] MEDS: Insulin GLARGINE 100 un/ml 10 ml VIAL SUBCUT SCH (20:26)
[2023-10-11 06:51] LABS: ABS Basophils 0.2 10^3/uL (0.0-0.1); ABS Eosinophils 0.2 10^3/uL (0.0-0.5); ABS Lymphocytes 1.4 10^3/uL (1.0-4.8); ABS Monocytes 0.6 10^3/uL (0.0-1.1); ABS Neutrophils 4.1 10^3/uL (1.5-7.6); Eosinophil % 3.1 %; Hematocrit 41.8 % (38-53); Lymphocyte % 21.6 %; Mean Corpuscular Hemoglobin 30.1 pg (27-33); Mean Corpuscular Hgb Conc 33.5 g/dL (31-36); Mean Platelet Volume 7.7 fL (7.5-11.2); Nucleated Red Blood Cells % 0.1 %/100WBC (0.0-0.8); Platelet Count 356 10^3/uL (150-450); Red Blood Count 4.65 10^6/uL (4.06-5.63); Red Cell Distribution Width 13.8 % (12-17); White Blood Count 6.4 10^3/uL (3.6-10.2)
[2023-10-11 07:07] LABS: Calcium 9.5 mg/dL (8.6-10.3); Creatinine, Serum 1.42 mg/dL (0.67-1.17); Magnesium 1.7 mg/dL (1.9-2.7); Phosphorus 3.6 mg/dL (2.5-5.0); Potassium 4.6 mmol/L (3.5-5.0); eGFR CKD-EPI 55.5 (>60)
[2023-10-11] MEDS ORDERED: Magnesium Sulfate 2 gm BAG 2 GM/50 ML BAG IVPB ONE (09:07)
[2023-10-11] MEDS: NF:DAPAGLIFLOZIN 10 MG TAB (NF) PO SCH (10:46)
[2023-10-11] MEDS: cefTRIAXone 2 gm/50 mL D5W 2 GM/50 ML BAG IV SCH (11:25)
[2023-10-11] MEDS: DAPAGLIFLOZIN 10 MG PO SCH (11:26)
[2023-10-11] MEDS: Insulin GLARGINE 100 un/ml 10 ml VIAL SUBCUT SCH (20:47)
[2023-10-12] MEDS: DAPAGLIFLOZIN 10 MG PO SCH (07:58)
[2023-10-12 08:37] LABS: Calcium 9.1 mg/dL (8.6-10.3); Creatinine, Serum 1.83 mg/dL (0.67-1.17); Potassium 4.9 mmol/L (3.5-5.0)
[2023-10-12] MEDS: cefTRIAXone 2 gm/50 mL D5W 2 GM/50 ML BAG IV SCH (12:37)
[2023-10-12] MEDS ORDERED: Lactated Ringers 1000 ml BAG 1,000 ML IV ONE (16:13)
[2023-10-12] MEDS: Insulin GLARGINE 100 un/ml 10 ml VIAL SUBCUT SCH (19:57)
[2023-10-13 06:52] LABS: ABS Basophils 0.1 10^3/uL (0.0-0.1); ABS Eosinophils 0.2 10^3/uL (0.0-0.5); ABS Lymphocytes 1.2 10^3/uL (1.0-4.8); ABS Monocytes 0.7 10^3/uL (0.0-1.1); ABS Neutrophils 4.2 10^3/uL (1.5-7.6); Eosinophil % 3.2 %; Hematocrit 40.5 % (38-53); Hemoglobin 13.5 g/dL (13.2-16.3); Mean Corpuscular Hemoglobin 30.1 pg (27-33); Mean Corpuscular Hgb Conc 33.4 g/dL (31-36); Mean Corpuscular Volume 90.1 fL (80-97); Mean Platelet Volume 7.6 fL (7.5-11.2); Platelet Count 347 10^3/uL (150-450); Red Blood Count 4.49 10^6/uL (4.06-5.63); Red Cell Distribution Width 13.7 % (12-17); White Blood Count 6.4 10^3/uL (3.6-10.2)
[2023-10-13 07:12] LABS: Calcium 8.9 mg/dL (8.6-10.3); Creatinine, Serum 1.74 mg/dL (0.67-1.17); Magnesium 1.8 mg/dL (1.9-2.7); Phosphorus 3.7 mg/dL (2.5-5.0); Potassium 4.3 mmol/L (3.5-5.0); eGFR CKD-EPI 43.5 (>60)
[2023-10-13] MEDS ORDERED: Magnesium Sulfate 2 gm BAG 2 GM/50 ML BAG IVPB ONE (07:51)
[2023-10-13] MEDS: DAPAGLIFLOZIN 10 MG PO SCH (08:38)
[2023-10-13] MEDS: cefTRIAXone 2 gm/50 mL D5W 2 GM/50 ML BAG IV SCH (11:22)
[2023-10-13 17:53] VITALS: BP 104/62
[2023-10-13] MEDS: Calcium Carb (TUMS) 500 mg CHEW TAB PO PRN (19:16)
== END 2023-10-13 21:20 | disposition short-term general hospital (02) | DRG 314 ==
LOC: ED 11:10 → SUATTDRO 19:51 → EDHOLD 19:51 → ICU 10-01 08:19 → MEDTELE 10-05 18:09
PROVIDERS: ADMIT Internal Medicine; ATTEND Student in an Organized Health Care Education/Training Program